=== PATIENT | male | born 1960 ===

== ENCOUNTER → 2020-10-12 08:18 | Outpatient (BNV) | payer OTHER, SELFPAY | PROVIDERS: PCP Internal Medicine; Visit Provider Internal Medicine Medical Oncology | DX: Z85.048 Personal history of other malignant neoplasm of rectum, rectosigmoid junction, and anus (principal) | CPT/HCPCS: 99212; 99213; 99214 ==

== ENCOUNTER → 2020-10-21 09:18 | Outpatient (BNVA) | payer OTHER, SELFPAY | PROVIDERS: PCP Internal Medicine; Visit Provider Surgery | DX: Z80.0 Family history of malignant neoplasm of digestive organs (principal) | CPT/HCPCS: 99212 ==

== ENCOUNTER 2020-11-20 07:49 | Day surgery (SDC) | payer OTHER, SELFPAY ==
[2020-11-13 11:06] VITALS: BMI 26.1
--- NOTE | 2020-11-19 08:47 | P.CONAN_ITS ---
Documented by User: Jaleesa Castro 11/19/20 09:00 HPI - Anesthesia Eval Consult details Narrative: 59yo M for Colonoscopy with Poss Polypectomy Reported ROYAL at last Onc visit. EKG wnl. 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 This has resolved over time. No SOB at rest, no CP, able to climb 2 flights of stairs and do physical work without symptoms now, no extremeity edema. Prev ROYAL likely r/t deconditioning s/p chemo/radiation. PMFSH Active Problems Active Problems: All Active Problems (Updated 11/13/20 @ 10:55 by Tiffanie Mccarthy) Anal squamous cell carcinoma (Acute) Family history of colon cancer (Acute) Past Medical History Medical History Family history of colon cancer Hypercholesteremia Family History Family History Mother Diabetes 1.5, managed as type 1 Father Colon cancer Surgical History Surgical History H/O colonoscopy History of incision and drainage Social History Social History Are you a primary career development director to a significant other at home: No Do you presently have visiting nurse or other home services: No Alcohol intake: current Alcohol intake frequency: holidays/special occasions only Smoking Status: Never smoker Use of substances other than those prescribed or required for medical reasons: No Have you been hit, kicked, punched, or otherwise hurt by someone within the past year? If so, by whom?: No Advance Directives: No Advance Directives Information Provided: No Advance Directives on File: No Recently lost weight without trying: No Meds Allergies Allergy/AdvReac Type Severity Reaction Status Date / Time Jrmphwh-Bea-Esx Reductase AdvReac Unknown LIVER TOXIC Verified 11/20/20 08:18 Inhibitor [RNDQCWU-HTE-XPY REDUCTASE INHIBITOR] statin meds Allergy Intermediate liver Uncoded 11/20/20 08:18 functions Home Medications Medication Instructions Recorded Confirmed Last Taken Type ezetimibe [Zetia] 10 mg PO DAILY 10/12/20 11/13/20 Unknown History Exam Exam Date and Time: November 19, 2020 0847 Height,Weight and Vital Signs: Height 5 ft 9 in Weight 80.286 kg Pertinent Lab Results Pertinent Lab Results: Laboratory Tests 10/12/20 10/12/20 08:20 08:20 WBC 4.2 L Hgb 14.9 Hct 44.6 Plt Count 193 Sodium 141 Potassium 4.1 Chloride 103 Carbon Dioxide 31 H BUN 17 H Creatinine 1.01 Narrative Narrative: EKG 10/2020 Normal sinus rhythm Normal ECG No previous ECGs available Assessment and Plan Assessment Anesthesia Assessment: Chart Reviewed Documented by User: Chantell Elder 11/20/20 08:55 PENDING SALE TO [facility] Past Medical History Medical History Family history of colon cancer Hypercholesteremia Family History Family History Mother Diabetes 1.5, managed as type 1 Father Colon cancer Family history of problems with anesthesia: No Surgical History Surgical History H/O colonoscopy History of incision and drainage History of Problems with Anesthesia: No Social History Social History Are you a primary career development director to a significant other at home: No Do you presently have visiting nurse or other home services: No Alcohol intake: current Alcohol intake frequency: holidays/special occasions only Smoking Status: Never smoker Use of substances other than those prescribed or required for medical reasons: No Have you been hit, kicked, punched, or otherwise hurt by someone within the past year? If so, by whom?: No Advance Directives: No Advance Directives Information Provided: No Advance Directives on File: No Recently lost weight without trying: No Meds Allergies Allergy/AdvReac Type Severity Reaction Status Date / Time Gczigue-Klv-Hok Reductase AdvReac Unknown LIVER TOXIC Verified 11/20/20 08:18 Inhibitor [WZTBLTK-TIM-BKD REDUCTASE INHIBITOR] statin meds Allergy Intermediate liver Uncoded 11/20/20 08:18 functions Home Medications Medication Instructions Recorded Confirmed Last Taken Type ezetimibe [Zetia] 10 mg PO DAILY 10/12/20 11/13/20 Unknown History Exam Height,Weight and Vital Signs: Vital Signs Temp Pulse Resp BP Pulse Ox 11/20/20 08:22 97.8 F 65 20 150/86 H 97 Airway Mallampati Class: II TM Dist: >3cm Neck ROM: Full Loose/Missing/Broken Teeth: No Heart: RRR Lungs: CTAB Assessment and Plan Assessment Anesthesia Assessment: Anesthesia Plan Discussed and Chart Reviewed Final Anesthetic Review NPO: Yes (3.5 hours- black coffee) ASA Class: II Final Preanesthetic Review: No Changes in Pt Med Stat, Meds/Allgs Chart Review ed, Consent Obtained/Reviewed and Anes Risks/Benef Reviewed Patient Risk: Low Procedure Risk: Low Assessment/Block/Sedation in SS: Assess/Block/Sedation-SS Anesthetic Plan Anesthetic Plan: MAC: Disposition: Standard PACU
[2020-11-20 08:22] VITALS: BP 150/86; PULSE 65; RESP 20; TEMP 36.6; O2SAT 97
[2020-11-20] MEDS: Lactated Ringers 1,000 ML 100 ML IVCONT (08:40)
--- NOTE | 2020-11-20 08:47 | MHC.SHP ---
Pre-Procedural Eval Section B Chief Complaint: Family history of colon cancer Allergies: Allergies Allergy/AdvReac Type Severity Reaction Status Date / Time Gksahrx-Hxd-Sau Reductase AdvReac Unknown LIVER TOXIC Verified 11/20/20 08:18 Inhibitor [JPYCRBD-PHU-AUX REDUCTASE INHIBITOR] statin meds Allergy Intermediate liver Uncoded 11/20/20 08:18 functions Plan I have reviewed the history and physical and performed a pertinent physical examination on my patient. No changes have occurred unless specified.
--- NOTE | 2020-11-20 09:27 | W.PM.OPN ---
Operative Note Operative Note Date of Service: 11/20/20 Narrative: PREOP DIAGNOSIS: COLON CANCER SCREENING, HISTORY OF ANAL SQUAMOUS CELL CARCINOMA POST OF DIAGNOSIS: 1. SIGMOID DIVERTICULOSIS 2. FLAT POLYP ABOUT 5 MM AT LEVEL 20 CM 3. NO EVIDENCE OF ANY RECURRENT LESION IN THE CANAL 4. SUBOPTIMAL BOWEL PREP SURGEON: ASH ANDRES MD The patient is a 59-year-old male who had a previous diagnosis of anal squamous cell carcinoma. He had undergone chemotherapy and radiation with resolution of the cancer. He was referred to me for screening colonoscopy. He understood the technique of the procedure. His ordered risks, benefits, and alternatives. He was brought to the operating room placed in left lateral decubitus position under monitored anesthesia care. A full digital rectal was done and there were no palpable anal canal lesions or induration. I proceeded to gently insert the scope through the anal orifice and advanced with insufflation all the way to the cecum. The cecum was intubated. The cecum was identified by visualization of the ileocecal valve as well as the appendiceal orifice. The cecal mucosa was unremarkable. The scope was gradually withdrawn with careful examination of the entire colonic mucosa being done with scope withdrawal. The patient did have segments of the right colon transverse colon with pools semi liquid/semi-solid stool so I had to do a lot of copious irrigation to clear the colonic mucosa. Otherwise, it was unlikely that any large lesion may have been missed. There was note of diverticulosis in the sigmoid. There was note of relatively flat polyp about 5 mm at the level about 20 cm. This was removed using multiple bites of the cold forceps. The rest of the rectum and anal canal were unremarkable. There is no evidence of any new or recurrent lesion in the anal canal. The scope was then withdrawn completely with desufflation. The patient tolerated the procedure well. There were no complications noted. In view of the suboptimal bowel prep, I would recommend repeating the colonoscopy within 5 years.
[2020-11-20 09:30] VITALS: BP 125/70; PULSE 58; RESP 12; TEMP 36.2; O2SAT 99
[2020-11-20 09:45] VITALS: BP 130/77; PULSE 60; RESP 18; O2SAT 99
== END 2020-11-20 10:15 | disposition home or self-care (01) ==
PROVIDERS: PCP Internal Medicine; Visit Provider Surgery
PROC: 0DJD8ZZ Inspection of Lower Intestinal Tract, Via Natural or Artificial Opening Endoscopic (ICD-10-PCS; CPT 45378; principal; 2020-11-20 09:00)
DX: Z12.11 Encounter for screening for malignant neoplasm of colon (principal); Z85.048 Personal history of other malignant neoplasm of rectum, rectosigmoid junction, and anus; Z92.21 Personal history of antineoplastic chemotherapy; Z92.3 Personal history of irradiation; Z80.0 Family history of malignant neoplasm of digestive organs; K63.5 Polyp of colon; K57.30 Diverticulosis of large intestine without perforation or abscess without bleeding; Z79.899 Other long term (current) drug therapy; Z88.8 Allergy status to other drugs, medicaments and biological substances
CPT/HCPCS: 45380; 88305

== ENCOUNTER → 2020-12-03 08:46 | Outpatient (BNVA) | payer OTHER, SELFPAY | PROVIDERS: PCP Internal Medicine; Visit Provider Surgery ==

== ENCOUNTER → 2021-12-20 10:43 | Outpatient (BNVA) | payer OTHER, SELFPAY | PROVIDERS: PCP Internal Medicine; Visit Provider Surgery | DX: Z85.048 Personal history of other malignant neoplasm of rectum, rectosigmoid junction, and anus (principal) | CPT/HCPCS: 46600; 99212 ==

== ENCOUNTER → 2022-12-26 11:40 | Outpatient (BNVA) | payer OTHER, SELFPAY | PROVIDERS: PCP Internal Medicine; Visit Provider Surgery | DX: Z85.048 Personal history of other malignant neoplasm of rectum, rectosigmoid junction, and anus (principal) | CPT/HCPCS: 46600; 99212 ==

== ENCOUNTER 2023-06-28 10:14 | Outpatient (AMB) | payer OTHER, SELFPAY ==
--- NOTE | 2023-06-28 10:18 | A.OFFVIS_ITS ---
Intake Intake Visit Reasons: 6 months follow up, anoscopy screening Intake Note: This patient presents for a six month follow-up assessment for Squamous cell carcinoma of the anus, anoscopy screening. Patient reports no complaints at this time. [place] Sewer Required: No Accompanied by: Self / Same As Patient Allergies Zihttvl-RXB-BjH Reductase Inhibitor [YZLLAIQ-NIA-BOL REDUCTASE INHIBITOR] Adverse Reaction (Unknown, Verified 06/28/23 10:19) LIVER TOXIC statin meds Allergy (Intermediate, Uncoded 06/28/23 10:19) liver functions Medication List - Last Reconciled 06/28/23 by Lavelle Cabezas MD ezetimibe (Zetia) 10 mg PO DAILY HPI 6 months follow up, anoscopy screening HPI Details 62-year-old male here for follow-up for his history of squamous cell carcinoma of the anus last 2017. I have been seeing in the office for anoscopies. I had seen him last in November,. He states he feels great. He denies any problems with bowel movements. He denies any pain with passage of stool nor any blood. He says that he does not feel that he has had any changes with regards to his health. [facility] Medical History (Updated 06/28/23 @ 10:37 by Lavelle Cabezas MD) Anal lesion Nasal trauma History of anal cancer Hyperplastic polyp of descending colon Family history of colon cancer Hypercholesteremia Surgical History History of nasal surgery H/O colonoscopy History of incision and drainage Family History Mother Diabetes 1.5, managed as type 1 Father Colon cancer Social History Are you a primary interior plant caretaker to a significant other at home: No Do you presently have visiting nurse or other home services: No Alcohol intake: current Alcohol intake frequency: holidays/special occasions only Patient Tobacco Use Status: Never used Tobacco Current occupational status: employed Review of Systems Const Denies chills and Denies fever(s) Card Denies chest pain, Denies dyspnea and Denies dyspnea on exertion Resp Denies cough, Denies dyspnea and Denies dyspnea on exertion GI Denies hematochezia and Denies change in bowel habits Denies hematuria and Denies difficulty urinating Musc Denies back pain and Denies limited range of motion Neuro Denies focal weakness and Denies convulsions Psych Denies depression and Denies mood swings Physical Exam Const General: comfortable and no acute distress Orientation/consciousness: patient oriented x3 Neck Neck: Yes no lymphadenopathy Resp Auscultation: clear to auscultation bilaterally Cardio Rhythm: regular rhythm GI Other: Rectal exam shows a small for 4 mm smooth fleshy well-defined mass and the anal verge on the left Palpation (GI): Soft to palpation, nontender and no guarding Neuro General: patient oriented x3 Office Procedures Anoscopy He was in brian-knife position. The anoscope was gently inserted. A full examination of the anal canal was done. There were no ulceration or any mucosal changes within the anal canal itself. There was no induration On the anal verge , left side, close to the distal anal canal was note of a 3-4 mm mass, soft, fleshy, well-defined not ulcerated, not bleeding [id number] Assessment & Plan Assessment & Plan (1) Anal lesion: Code(s): K62.9 - Disease of anus and rectum, unspecified Plan: He has a history of squamous cell anal carcinoma 2018 and had completed radiation and chemotherapy Anoscopy exam today shows a small define fleshy mass as described above on the left side of the anal verge. In view of his history, I told him it may be best to proceed with excision and biopsy of this lesion. I discussed with him the technique of exam under anesthesia and excision this anal lesion. I reviewed the risks, including but not limited to bleeding and infections, as well as the benefits and alternatives. He understands and wants to proceed. Coding Level of Care Code Est Pt Level 3 (92329) Diagnoses Anal lesion K62.9 CPT Codes Details - CPT: 99746-[id number] ([id number])
== END 2023-06-28 10:34 | disposition home or self-care (01) ==
PROVIDERS: PCP Internal Medicine; Visit Provider Surgery
DX: K62.9 Disease of anus and rectum, unspecified (principal)
CPT/HCPCS: 46600; 99213

== ENCOUNTER → 2023-06-28 10:14 | Outpatient (BNVA) | payer OTHER, SELFPAY | PROVIDERS: PCP Internal Medicine; Visit Provider Surgery | DX: K62.9 Disease of anus and rectum, unspecified (principal) | CPT/HCPCS: 46600; 99212 ==

== ENCOUNTER 2023-07-14 08:17 | Day surgery (SDC) | payer OTHER, SELFPAY ==
[2023-07-12 15:07] VITALS: BMI 27.8
--- NOTE | 2023-07-13 09:20 | P.CONAN_ITS ---
Documented by User: Jaleesa Castro NP 07/13/23 09:21 HPI - Anesthesia Eval Consult details Narrative: 62yo M for EUA,Excision Anal Lesion PMFSH Active Problems Active Problems: All Active Problems (Updated 06/28/23 @ 10:37 by Lavelle Cabezas MD) Anal lesion (Acute) Squamous cell carcinoma of anus (Acute) Anal squamous cell carcinoma (Acute) History of anal cancer (Acute) Hyperplastic polyp of descending colon (Acute) H/O colonoscopy (Acute) Family history of colon cancer (Acute) Past Medical History Medical History (Updated 06/28/23 @ 10:37 by Lavelle Cabezas MD) Anal lesion Nasal trauma History of anal cancer Hyperplastic polyp of descending colon Family history of colon cancer Hypercholesteremia Family History Family History Mother Diabetes 1.5, managed as type 1 Father Colon cancer Family history of problems with anesthesia: No Surgical History Surgical History History of nasal surgery H/O colonoscopy History of incision and drainage History of Problems with Anesthesia: No Social History Social History Are you a primary career advisor to a significant other at home: No Do you presently have visiting nurse or other home services: No Alcohol intake: current Alcohol intake frequency: holidays/special occasions only Patient Tobacco Use Status: Never used Tobacco Current occupational status: employed Meds Allergies Allergy/AdvReac Type Severity Reaction Status Date / Time Okmahqf-KUI-ZiE Reductase AdvReac Unknown LIVER TOXIC Verified 06/28/23 10:19 Inhibitor [VIOOEFE-RTD-YVF REDUCTASE INHIBITOR] statin meds Allergy Intermediate liver Uncoded 06/28/23 10:19 functions Home Medications Medication Instructions Recorded Confirmed Last Taken Type ezetimibe 10 mg tablet (Zetia) 10 mg PO DAILY 10/12/20 06/28/23 Unknown History Exam Exam Date and Time: July 13, 2023 09 Height,Weight and Vital Signs: Height 5 ft 10 in Weight 87.997 kg Pertinent Lab Results Pertinent Lab Results: Laboratory Tests 12/29/22 10:00 WBC 3.9 L Hgb 14.4 Hct 41.4 L Plt Count 171 Sodium 140 Potassium 4.1 Chloride 106 Carbon Dioxide 26 BUN 17 H Creatinine 0.86 Assessment and Plan Assessment Anesthesia Assessment: Chart Reviewed Final Anesthetic Review Family History of Problems with Anesthesia: No History of Problems with Anesthesia: No Documented by User: Sebas Henry MD 07/14/23 07:51 [facility] Past Medical History Medical History (Updated 06/28/23 @ 10:37 by Lavelle Cabezas MD) Anal lesion Nasal trauma History of anal cancer Hyperplastic polyp of descending colon Family history of colon cancer Hypercholesteremia Family History Family History Mother Diabetes 1.5, managed as type 1 Father Colon cancer Surgical History Surgical History History of nasal surgery H/O colonoscopy History of incision and drainage Social History Social History Are you a primary career advisor to a significant other at home: No Do you presently have visiting nurse or other home services: No Alcohol intake: current Alcohol intake frequency: holidays/special occasions only Patient Tobacco Use Status: Never used Tobacco Current occupational status: employed Meds Allergies Allergy/AdvReac Type Severity Reaction Status Date / Time Vllyeur-EJR-WnP Reductase AdvReac Unknown LIVER TOXIC Verified 06/28/23 10:19 Inhibitor [IYLWPGJ-AFW-UWH REDUCTASE INHIBITOR] statin meds Allergy Intermediate liver Uncoded 06/28/23 10:19 functions Home Medications Medication Instructions Recorded Confirmed Last Taken Type ezetimibe 10 mg tablet (Zetia) 10 mg PO DAILY 10/12/20 06/28/23 Unknown History Exam Airway Mallampati Class: II TM Dist: >3cm Neck ROM: Full Heart: rrr Lungs: cta Assessment and Plan Assessment Anesthesia Assessment: Anesthesia Plan Discussed Final Anesthetic Review NPO: Yes ASA Class: II Final Preanesthetic Review: No Changes in Pt Med Stat, Meds/Allgs Chart Reviewed, Consent Obtained/Reviewed and Anes Risks/Benef Reviewed Patient Risk: Intermediate Procedure Risk: Low Anesthetic Plan Anesthetic Plan: GA and Agree w/ Assess. and Plan Disposition: Standard PACU
[2023-07-14 08:26] VITALS: BMI 27.3
[2023-07-14 08:34] VITALS: BP 161/82; PULSE 70; RESP 16; TEMP 37; O2SAT 98
[2023-07-14] MEDS: Lactated Ringers 1,000 ML 100 ML IVCONT (08:40)
--- NOTE | 2023-07-14 09:30 | MHC.SHP ---
Pre-Procedural Eval Section A Date of Service: 07/14/23 The patient is an INPATIENT: No Changes since office visit: No Cold of Flu in the past 2 weeks, No New Medical Problems, No Changes in Medication and No Patient answered all questions The History & Physical has been completed within 30 days and I have reviewed it.: Yes Section B Chief Complaint: Disease of anus and rectum, unspecified Allergies: Allergies Allergy/AdvReac Type Severity Reaction Status Date / Time Eqxzezi-EHP-CbB Reductase AdvReac Unknown LIVER TOXIC Verified 07/14/23 08:33 Inhibitor [ROEZVSB-UUR-KER REDUCTASE INHIBITOR] statin meds Allergy Intermediate liver Uncoded 07/14/23 08:33 functions Plan I have reviewed the history and physical and performed a pertinent physical examination on my patient. No changes have occurred unless specified. Time Spent With Patient Time: Total time managing care of this patient today ____ minutes.
--- NOTE | 2023-07-14 10:07 | W.PM.OPN ---
Operative Note Operative Note Date of Service: 07/14/23 Narrative: Preop diagnosis: Anal canal lesion, with history of squamous cell carcinoma of the anus Postop diagnosis: The same Procedure: Exam under anesthesia, excision of anal canal lesion Surgeon: Lavelle Cabezas MD The patient is a 62-year-old male with a history of squamous cell carcinoma of the anus, status post chemotherapy and radiation with good response He has been undergoing surveillance with me in the office with anoscopy is and rectal exams. There was note of a small well-defined anal lesion, elevated, smooth, near the anal verge on his last exam so is scheduled for exam under anesthesia and excision biopsy of this lesion. He understood the technique of the planned procedure as well as the risks, benefits, and alternatives . He was brought to the operating room. He was placed in left colic was position under monitored anesthesia care. The right buttock was retracted using wide tape. The perianal area was prepped and draped in the usual sterile fashion. A surgical time-out was done. The patient received Cefotan 2 g IV preoperatively . I retracted the anal opening some more and this well-defined anal lesion probably about 5 mm in widest dimension with a narrow base, with smooth surface was noted on the anterior anal canal distally near the anal verge. I inserted the Juany Walters retractor and examined anal canal circumferentially. There were no other lesions . I retracted this lesion which appeared to be small and polypoid, with forceps. I excise this using electrocautery and this was sent as specimen. Excision site appeared clean. There was noted good hemostasis I then infiltrated the perianal area with Marcaine 0.5% for postop analgesia. The procedure was then completed. The patient tolerated procedure well. There were no immediate complications. Initial and final counts of sponges and instruments were correct. Estimated blood loss was about 5 cc. The patient was extubated without difficulty and transferred to the recovery room with stable vital signs.
[2023-07-14 10:17] VITALS: BP 106/52; PULSE 66; RESP 20; TEMP 36.3; O2SAT 96
[2023-07-14 10:32] VITALS: BP 109/70; PULSE 62; RESP 17; O2SAT 97
[2023-07-14 10:47] VITALS: BP 112/69; PULSE 63; RESP 14; TEMP 36.6; O2SAT 99
== END 2023-07-14 11:01 | disposition home or self-care (01) ==
PROVIDERS: PCP Internal Medicine; Visit Provider Surgery
PROC: (CPT 46922; principal; 2023-07-14 10:20)
DX: K62.9 Disease of anus and rectum, unspecified (principal); Z85.048 Personal history of other malignant neoplasm of rectum, rectosigmoid junction, and anus; Z92.21 Personal history of antineoplastic chemotherapy; Z92.3 Personal history of irradiation; Z80.0 Family history of malignant neoplasm of digestive organs; E78.00 Pure hypercholesterolemia, unspecified; Z79.899 Other long term (current) drug therapy; Z88.8 Allergy status to other drugs, medicaments and biological substances
CPT/HCPCS: 46922; 88305

== ENCOUNTER → 2023-07-14 08:17 | Outpatient (BNV) | payer OTHER, SELFPAY | PROVIDERS: PCP Internal Medicine; Visit Provider Surgery | DX: K62.89 Other specified diseases of anus and rectum (principal) | CPT/HCPCS: 46922 ==

== ENCOUNTER 2023-07-27 11:11 | Outpatient (AMB) | payer OTHER, SELFPAY ==
--- NOTE | 2023-07-27 11:13 | MHC.OFFVIS ---
Intake Vital Signs 07/27/23 11:21 Weight 192 lb BP 165/74 H Blood Pressure Location Rt brachial Position Sitting Pulse 59 Intake Visit Reasons: S/P EUA anal lesion Intake Note: This patient presents for a post-op assessment status post EUA anal lesion. Patient c/o; reports no complaints at this time pertaining to surgery. Community Engagement Coordinator Required: No Accompanied by: Other Relationship Allergies Gnfgrmv-VWV-NpE Reductase Inhibitor [XDHLGXU-KMK-CZY REDUCTASE INHIBITOR] Adverse Reaction (Unknown, Verified 07/27/23 11:22) LIVER TOXIC statin meds Allergy (Intermediate, Uncoded 07/27/23 11:22) liver functions HPI S/P EUA anal lesion HPI Details He had lesion from the anal verge excised under anesthesia last 07/14/2023. He tolerated the procedure well. He currently denies significant complaints and says he feels well. [facility] Medical History HTN (hypertension) Anal lesion Nasal trauma History of anal cancer Hyperplastic polyp of descending colon Family history of colon cancer Hypercholesteremia Surgical History Hx of surgical procedure (~07/14/23) History of nasal surgery H/O colonoscopy History of incision and drainage Family History Mother Diabetes 1.5, managed as type 1 Father Colon cancer Social History Are you a primary director of health care marketing to a significant other at home: No Do you presently have visiting nurse or other home services: No Alcohol intake: current Alcohol intake frequency: 0-2 drinks per day Patient Tobacco Use Status: Never used Tobacco Current occupational status: employed Review of Systems Const Denies chills and Denies fever(s) Card Denies chest pain Resp Denies cough GI Denies hematochezia Physical Exam Vital Signs: Last Vital Signs Pulse 59 07/27/23 11:21 BP 165/74 H 07/27/23 11:21 Const General: comfortable and no acute distress Resp Effort & Inspection: normal respiratory effort GI Other: Excision site in the anal verge is well healed, not infected, no lesions Assessment & Plan Assessment & Plan (1) Anal lesion: Code(s): K62.9 - Disease of anus and rectum, unspecified Plan: Status post excision. 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 I explained to him the benign nature of this pathology. We will continue to do regular anoscopy is and we will do this within 1 year this time. He understands the plan well. Coding Level of Care Code Global (11496) Diagnoses Anal lesion K62.9
[2023-07-27 11:21] VITALS: BP 165/74; PULSE 59
== END 2023-07-27 11:31 | disposition home or self-care (01) ==
PROVIDERS: PCP Internal Medicine; Visit Provider Surgery
DX: K62.9 Disease of anus and rectum, unspecified (principal)
CPT/HCPCS: 99024

== ENCOUNTER → 2023-07-27 11:11 | Outpatient (BNVA) | payer OTHER, SELFPAY | PROVIDERS: PCP Internal Medicine; Visit Provider Surgery ==

== ENCOUNTER 2024-07-22 08:57 | Outpatient (AMB) | payer OTHER, SELFPAY ==
--- NOTE | 2024-07-22 09:02 | A.OFFVIS_ITS ---
Vital Signs 07/22/24 09:06 Weight 186 lb BP 136/76 Intake Visit Reasons: Anal lesion, 1 year follow up Intake Note: pt states, I'm good. No problems. 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 I have been seeing him in the office for anoscopies. I excised a small lesion from the anal verge last July, and this was a fibroepithelial polyp. He continues to feel well.He denies any problems with bowel movements. He denies any pain with passage of stool nor any blood. He says that he does not feel that he has had any changes with regards to his health. [facility] Medical History HTN (hypertension) Anal lesion Nasal trauma History of anal cancer Hyperplastic polyp of descending colon Family history of colon cancer Hypercholesteremia Surgical History Hx of surgical procedure (~07/14/23) History of nasal surgery H/O colonoscopy History of incision and drainage Family History Mother Diabetes 1.5, managed as type 1 Father Colon cancer Social History Are you a primary healthcare prof to a significant other at home: No Do you presently have visiting nurse or other home services: No Alcohol intake: current Alcohol intake frequency: 0-2 drinks per day Patient Tobacco Use Status: Never used Tobacco Current occupational status: employed Review of Systems Const Denies chills and Denies fever(s) Card Denies chest pain, Denies dyspnea and Denies dyspnea on exertion Resp Denies cough, Denies dyspnea and Denies dyspnea on exertion GI Denies hematochezia and Denies change in bowel habits Denies hematuria and Denies difficulty urinating Musc Denies back pain and Denies limited range of motion Neuro Denies focal weakness and Denies convulsions Psych Denies depression and Denies mood swings Physical Exam Const General: comfortable and no acute distress Orientation/consciousness: patient oriented x3 Neck Neck: Yes no lymphadenopathy Resp Auscultation: clear to auscultation bilaterally Cardio Rhythm: regular rhythm GI Other: Rectal exam does not reveal any new lesions in the anal verge or perianal area. He does have adjacent changes in the perianal skin. Note of scabbing in the left anal verge. He has no inguinal lymphadenopathy Palpation (GI): Soft to palpation, nontender and no guarding Neuro General: patient oriented x3 Office Procedures Anoscopy He was in brian-knife position. The anoscope was gently inserted. A full examination of the anal canal was done. There was note of radiation changes in the perianal skin and eschar on the left side. There were no new lesions or ulceration. There was no induration on digital exam. There was no significant tenderness. There was no bleeding. [id number] Assessment & Plan Assessment & Plan (1) History of anal cancer: Code(s): Z85.048 - Personal history of other malignant neoplasm of rectum, rectosigmoid junction, and anus Category: Medical Plan: He continues to do well. Current exam and anoscopy does not suggest any recurrence or any new lesion. I explained to him that I would recommend continuing with a yearly anoscopy is here in the office. He understands that if he has any complaints with regards to the anus, he should come back prior to that. Coding Level of Care Code Est Pt Level 3 (72629) Diagnoses History of anal cancer Z85.048 CPT Codes Details - CPT: 76561-Fqwyjfpn ([id number])
[2024-07-22 09:06] VITALS: BP 136/76
== END 2024-07-22 09:16 | disposition home or self-care (01) ==
PROVIDERS: PCP Internal Medicine; Visit Provider Surgery
DX: Z85.048 Personal history of other malignant neoplasm of rectum, rectosigmoid junction, and anus (principal)
CPT/HCPCS: 46600; 99213

== ENCOUNTER → 2024-07-22 08:57 | Outpatient (BNVA) | payer OTHER, SELFPAY | PROVIDERS: PCP Internal Medicine; Visit Provider Surgery | DX: Z85.048 Personal history of other malignant neoplasm of rectum, rectosigmoid junction, and anus (principal) | CPT/HCPCS: 46600; 99212 ==

== ENCOUNTER 2025-02-06 11:01 | Outpatient (AMB) | payer OTHER, SELFPAY ==
--- NOTE | 2025-02-06 11:03 | A.OFFVIS_ITS ---
Vital Signs 02/06/25 11:09 Height 5 ft 9 in Weight 191 lb BMI 28.2 BP 180/82 H Blood Pressure Location Rt brachial Position Sitting Pulse 71 Intake Visit Reasons: new onset rectal bleeding Intake Note: Patient scheduled today's appointment for new onset of rectal bleeding. Hx of anal squamous cell carcinoma. Patient c/o: one incident 1wk ago. Bleeding for about 1hour. 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 This had that he saw this and seemed to have soaked the toilet paper. He said that he noticed this for about an hour. He denied any pain around that time. He said that this has not recurred.. I excised a small lesion from the anal verge last July, and this was a fibroepithelial polyp. He continues to feel well.He denies any problems with bowel movements. He denies any changes with his overall health. [facility] Medical History (Updated 02/06/25 @ 11:20 by Lavelle Cabezas MD) Anal polyp HTN (hypertension) Anal lesion Nasal trauma History of anal cancer Hyperplastic polyp of descending colon Family history of colon cancer Hypercholesteremia Surgical History Hx of surgical procedure (~07/14/23) History of nasal surgery H/O colonoscopy History of incision and drainage Family History Mother Diabetes 1.5, managed as type 1 Father Colon cancer Social History Are you a primary career center advisor to a significant other at home: No Do you presently have visiting nurse or other home services: No Alcohol intake: current Alcohol intake frequency: 0-2 drinks per day Patient Tobacco Use Status: Never used Tobacco Current occupational status: employed Review of Systems Const Denies chills and Denies fever(s) Card Denies chest pain, Denies dyspnea and Denies dyspnea on exertion Resp Denies cough, Denies dyspnea and Denies dyspnea on exertion GI Reports hematochezia and Denies change in bowel habits Denies hematuria and Denies difficulty urinating Musc Denies back pain and Denies limited range of motion Neuro Denies focal weakness and Denies convulsions Psych Denies depression and Denies mood swings Physical Exam Const General: comfortable and no acute distress Orientation/consciousness: patient oriented x3 Neck Neck: Yes no lymphadenopathy Resp Auscultation: clear to auscultation bilaterally Cardio Rhythm: regular rhythm GI Other: Rectal exam shows chronic radiation changes in the perianal skin without any obvious lesions, no fissure Palpation (GI): Soft to palpation, nontender and no guarding Neuro General: patient oriented x3 Office Procedures Anoscopy He was in kneeling brian-knife position. The anoscope was gently inserted and a full examination of the anal canal was done. There was note of telangiectatic changes anal canal diffusely secondary to his previous radiation. There were no ulcerations or lesions. He did have some small internal external hemorrhoids. There was note of what appeared to be a small polypoid area anteriorly measuring about 5 mm. This was on the distal anal canal at the verge. [id number] Assessment & Plan Assessment & Plan (1) Anal polyp: Code(s): K62.0 - Anal polyp Category: Medical Plan: He has a small polypoid lesion in the anal canal at the verge. In view of history of squamous cell anal cancer, I told him that it may be best to have this pathologically examined. I explained to the technique of exam under anesthesia and excision of this anal polyp. I reviewed the risks including but not limited to bleeding, infections and postop pain and poor healing. He understands and has agreed to proceed. Coding Level of Care Code Est Pt Level 3 (58905) Diagnoses Anal polyp K62.0 CPT Codes Details - CPT: 77673-[id number] ([id number])
[2025-02-06 11:09] VITALS: BP 180/82; PULSE 71; BMI 28.2
--- OUTSIDE RECORDS SUMMARY | 2025-02-06 12:33 | XMS_ITS | Encounter Summary ---
Author Name [facility] [facility] [place] Address [address] [place] [address] Care Team Providers Care Maintenance Worker House Trailer Name Role Phone IVETH CHILDS Primary Care Provider Unavailabl e Insurance Providers: All historical and current Section Date Range: From patient's date of to the date document was created. This section includes the names of all active insurance providers for the patient. Insurance Provider Type of Coverage Plan Name Start of Policy Coverage End of Policy Coverage Group Number Member ID Insurance Provider's Telephone Number Policy Yarbrough's Name Patient's Relationship to Policy Yarbrough [facility] MEDICAID MEDICAID MEDIC AID Dec 05, 2017 MEDICAI D [id number] MONA RENEE PATIENT Selected Encounter This section includes the information on record at [place] for the Encounter. Date/Time Encounter Type Encounter Description Reason Pro vider Source February 05, 2025 11:15 AM Outpatient Encounter OPTOMETRY IHE Encounter Template Text not used by [facility] Plan of Treatment: Future Appointments (+ 6 months) and Future Tests (+/- 45 days) The Plan of Treatment section includes future care activities for the patient from all [facility] treatmentfacilities. This section includes future appointments and future orders which are active, pending or scheduled. Future Appointments This section includes appointments that were scheduled to occur 6 months from the date of the Encounter, up to a maximum of 20 appointments. The data comes from all [place] treatment facilities. Appointment Date/Time Appointment Type Appointme nt Facility Name February 06, 2025 11:30 AM [place] [facility] [place] [facility] Jul 29, 2025 09:00 AM [facility] Active, Pending, and Scheduled Orders This section includes a listing of several types of active, pending, and scheduled orders, including clinic medications orders, diagnostic test orders, procedure orders and consult orders; where the start date of the order is 45 days before the date of the Encounter or 45 days after the date of theEncounter. The data comes from all [place] treatment facilities. Test Date/Time Test Type Test Details Facility Name Jan 08, 2025 06:25 PM Consult Order [facility] Hand [facility] [place] [facility] Jan 27, 2025 09:33 AM Consult Order COMM[facility]ITY [facility] SURGERY [facility] Lab Results: +/- 30 days of the encounter This section includes the Chemistry and Hematology Lab Results on record with [place] for the patient. Radiology Reports and Pathology Reports are provided separately, in subsequent sections. Lab Results This section contains the Chemistry/Hematology Results that were resulted 30 days before or 30 daysafter the date of the Encounter. Date/Time Source Result Type Result - Unit Interpretation Reference Range Specimen Type Comment Jan 27, 2025 08:43 [facility] TSH SERUM Specimen Type: SERUM No comment entered. Ordering Provider: IVETH CHILDS Report Released Date/Time: Jan 18, 2025 04:42 PM Reporting Lab: [facility] [place] [facility] [address] [facility] [address] Performing Lab: [facility] [address] [address] TSH 1.48 u[IU]/mL 0.35-4.94 Jan 27, 2025 08:43 [address] [facility] LIPID PANEL FASTING SERUM Specimen Type: SERU M No comment entered. Ordering Provider: IVETH CHILDS Report Released Date/Time: Jan 18, 2025 04:42 PM Reporting Lab: [facility] [address] [facility] [address] Performing Lab: [address] [address] CHOLESTEROL 255 mg/dL H TRIGLYCERIDE 211 mg/dL H 0-150 LDL calculated 163 mg/dL H 0-129 CHOL/HDL 5.1 HDL CHOLESTEROL 50 mg/dL >40 Jan 27, 2025 08:43 AM [facility] LIVER FUNCTION SERUM Specimen Type: SERUM No comment entered. Ordering Provider: IVETH CHILDS Report Released Date/Time: Jan 18, 2025 04:42 PM Reporting Lab: [address] [address] Performing Lab: [address] [address] PROTEIN,TOTAL 7.1 g/dL 6.4-8.3 ALBUMIN 4.7 g/dL H 3.2-4.6 ALKALINE PHOSPHATASE 65 U/L 40-150 AST 23 U/L 5-34 ALT 34 U/L 0-55 BILIRUBIN, TOTAL 0.8 mg/dL 0.2-1.2 Jan 27, 2025 08:43 AM [facility] BASIC METABOLIC PANEL (fasting) SERUM Specime n Type: SERUM No comment entered. Ordering Provider: IVETH CHILDS Report Released Date/Time: Jan 18, 2025 04:42 PM Reporting Lab: [address] [address] Performing Lab: [address] [address] UREA NITROGEN 19 mg/dL 8-26 GLUCOSE 108 mg/dL H 65-100 SODIUM 140 mmol/L 136-145 POTASSIUM 3.9 mmol/L 3.5-5.1 CHLORIDE 106 mmol/L 98-107 CO2 24 meq/L 23-31 CALCIUM 9.2 mg/dL 8.8-10 CREATININE, Serum 0.95 mg/dL 0.72-1.25 eGFR(CKD-EPI 2020) 89 mL/min >60 Jan 27, 2025 08:43 AM [facility] PSA SERUM Specimen Type: SERUM No comment entered. Ordering Provider: IVETH CHILDS Report Released Date/Time: Jan 18, 2025 04:42 PM Reporting Lab: [facility] [address] [facility] [address] Performing [facility]: [facility] [address] [facility] [address] PSA 1.8 ng/mL 0.0-4.0 Jan 27, 2025 08:43 AM [facility] CALCIUM SERUM Specimen Type: SERUM No comment entered. Ordering Provider: IVETH CHILDS Report Released Date/Time: Jan 18, 2025 04:42 PM Reporting Lab: [address] [address] Performing Lab: [facility] [address] [address] CALCIUM 9.2 mg/dL 8.8-10 Jan 27, 2025 08:43 AM [facility] VITAMIN D (25-[place]) SERUM Specimen Type: SERUM No comment entered. Ordering Provider: IVETH CHILDS Report Released Date/Time: Jan 18, 2025 04:42 PM Reporting Lab: [facility] [address] [address] Performing Lab: [address] [address] VITAMIN D (25-[place]) 51.8 ng/mL H 20-50 Jan 27, 2025 08:43 AM [facility] CBC AND DIFF (AUTO) BLOOD Specimen Type: BLOO D No comment entered. Ordering Provider: IVETH CHILDS Report Released Date/Time: Jan 18, 2025 04:42 PM Reporting Lab: [facility] [address] [address] Performing Lab: [facility] [address] [address] WBC 4.33 10*3/uL L 4.50-11.00 RBC 4.92 10*6/uL 4.23-5.66 HGB 15.2 g/dL 12.8-17 HCT 44.3 39.2-50.4 MCV 90.0 fL 82-99 MCHC 34.3 g/dL 30.8-35.1 PLT 183 10*3/uL 140-360 MPV 9.9 fL 9.2-12.4 RDW-CV 12.2 12.0-16.0 MONO, ABS 0.52 10*3/uL 0.30-1.10 MCH 30.9 pg 26.2-32.6 NEUT % 58.6 43.7-75.8 LYMPH % 23.8 14.0-42.3 MONO % 12.0 5.1-13.7 EOS % 4.6 0.4-6.8 BASO % 0.5 0.1-2.0 NEUT, ABS 2.54 10*3/uL 2.20-7.60 LYMPH, ABS 1.03 10*3/uL 1.00-3.20 EOS, ABS 0.20 10*3/uL 0.03-0.44 BASO, ABS 0.02 10*3/uL 0.01-0.13 IMMATURE GRAN % 0.5 0.0-0.7 IMMATURE GRAN, ABS 0.02 10*3/uL 0.00-0.0 6 NRBC % 0.0 0.0-0.0 NRBC, ABS 0.00 10*3/uL 0.00-0.00 Jan 27, 2025 08:43 AM [facility] URINALYSIS CLEAN CATCH URINE Specimen Type: U RINE Comment: If Glucose = >500 and Ketones are positive, please alert the Physician. Ordering Provider: IVETH CHILDS Report Released Date/Time: Jan 18, 2025 04:42 PM Reporting Lab: [address] [address] Performing Lab: [address] [address] UA COLOR Light-Yellow Yellow UA APPEARANCE Clear Clear UA GLUCOSE Normal mg/dL Negative UA KETONES NEGATIVE mg/dL Negative UA BLOOD NEGATIVE mg/dL Negative UA PROTEIN NEGATIVE mg/dL Negative UA NITRITE NEGATIVE mg/dL Negative UA BILIRUBIN NEGATIVE mg/dL Negative UA SPECIFIC GRAVITY 1.025 H 1.016-1.022 UA pH 6.0 5.0-9.0 UA UROBILINOGEN Normal mg/dL <2.0 UA LEUKOCYTE NEGATIVE Negative Social History: Smoking Status (Most current) and Tobacco Use (All prior to encounter date) This section includes the most current, and the historical, smoking and tobacco- related health factors from the [place] facility where the Encounter took place. Current Smoking Status This section includes the most current smoking, or tobacco-related health factor, from the [place] facility where the Encounter took place. Date/Time Current Smoking Status Comment [facility] it Aug 02, 2024 11:00 AM VA-TOBACCO NEVER USED [place] [facility] [place] [facility] Tobacco Use History This section includes a history of the smoking, or tobacco-related health factors, that were collected on or before the date of the Encounter. The data comes from the [place] facility where the Encounter took place. Date/Time Smoking Status/Tobac co Use Comment [facility] May 01, 2023 11:30 AM VA-TOBACCO FORMER USER [facility] [place] [facility] May 01, 2023 11:30 AM VA-TOBACCO QUIT 15 YRS OR MORE [facility] [place] [facility] May 13, 2022 08:30 AM VA-TOBACCO FORMER USER [facility] [place] [facility] May 13, 2022 08:30 AM VA-TOBACCO QUIT 15 YRS OR MORE [facility] [place] [facility] May 24, 2021 03:30 PM VA-TOBACCO NEVER USED [facility] [place] [facility] Jun 23, 2020 09:30 AM VA-TOBACCO FORMER USER [facility] [place] [facility] Jun 23, 2020 09:30 AM VA-TOBACCO QUIT 15 YRS OR MORE [facility] [place] [facility] Sep 18, 2018 09:48 AM VA-TOBACCO NEVER USED [facility] [place] [facility] Mar 26, 2018 10:01 AM LIFETIME NON-TOBACCO USER [facility] [place] [facility] Jun 17, 2016 09:41 AM LIFETIME NON-TOBACCO USER [facility] [place] [facility] Mar 03, 2011 11:19 AM QUIT TOBACCO USE > 7 YEARS AGO quit 20 years ago [facility] [place] [facility] Encounter Notes: All associated encounter notes This section contains the clinical notes associated to the Encounter. Date/Time Encounter Note(s) Provider Source February 05, 2025 11:15 AM OPTOMETRY NOTE: LOCAL TITLE: OPTOMETRY NOTE STANDARD TITLE: OPTOMETRY NOTE DATE OF NOTE: FEBRUARY 05, 2025@11:15 ENTRY DATE: FEBRUARY 05, 2025@11:15:17 AUTHOR: LUBNA RUGGIERO COSIGNER: URGENCY: STATUS: COMPLETED seen for fitting. Repaired one pair. Replaced missing nosepads. The quote provided below is for informational purposes only. Please verify prior to the creation of a purchase order. HARRIETT RENEE 2178 RX INFORMATION OD +1.50 -0.75 X89 Add:+2.50 Pzm:0.00 Dir: Prz2:0.00 Dir2: OS +2.00 -0.50 X65 Add:+2.50 Pzm:0.00 Dir: Prz2:0.00 Dir2: FITTING INFORMATION FPD: NPD: [place]:R:32.5 L:33.5 SEG HT:R:20 L:20 Tint:None Shade:None VA Billable Items FRAME: FX3 COFFEE 50-20-145 Right Lens: POLY VA PROGRESSIVE PHOTOCHROMIC BALDERAS 1.586 POLY Left Lens: POLY VA PROGRESSIVE PHOTOCHROMIC BALDERAS 1.586 POLY KLEAR ANTI-REFLECTIVE COATING CLIN items [employer] - AR Coating 0004 - Progressive - Glass Plastic Poly 0005 - Transition /es/ LUBNA RUGGIERO ENVIRONMENTAL SYSTEMS COORDINATOR Signed: 02/05/2025 11:26 Receipt Acknowledged By: * AWAITING SIGNATURE * [facility] TAYLOR NICOLE [facility]
--- OUTSIDE RECORDS SUMMARY | 2025-02-06 12:33 | XMS_ITS | Encounter Summary ---
Author Name [facility] [place] [facility] [place] [facility] [place] Address [address] [place] [address] Care Team Providers Care [place] Ste[place] Name Role Phone SINGH ALVAREZ Primary Care Provider Unavailabl e Insurance Providers: All historical and current Section Date Range: From patient's date of to the date document was created. This section includes the names of all active insurance providers for the patient. Insurance Provider Type of Coverage Plan Name Start of Policy Coverage End of Policy Coverage Group Number Member ID Insurance Provider's Telephone Number Policy Yarbroguh's Name Patient's Relationship to Policy Yarbrough [facility] MEDICAID MEDICAID MEDIC AID Dec 05, 2017 MEDICAI D [id number] MONA RENEE PATIENT Selected Encounter This section includes the information on record at [place] for the Encounter. 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 Date/Time Primary/Secondary Diagnosis Diagnosis Name Provider Source Jan 27, 2025 09:38 AM PRIMARY Malignant neoplasm of anus, unspecified SINGH ALVAREZ [facility] Plan of Treatment: Future Appointments (+ 6 months) and Future Tests (+/- 45 days) The Plan of Treatment section includes future care activities for the patient from all [place] treatmentfacilities. This section includes future appointments and future orders which are active, pending or scheduled. Future Appointments This section includes appointments that were scheduled to occur 6 months from the date of the Encounter, up to a maximum of 20 appointments. The data comes from all [place] treatment facilities. Appointment Date/Time Appointment Type Appointme nt Facility Name February 03, 2025 11:40 AM AMBULATORY - MEDICINE [facility] February 05, 2025 10:30 AM AMBULATORY MEDICINE [facility] February 06, 2025 11:30 AM AMBULATORY MEDICINE [facility] Jul 29, 2025 09:00 AM AMBULATORY MEDICINE [facility] Active, Pending, and Scheduled Orders This section includes a listing of several types of active, pending, and scheduled orders, including clinic medications orders, diagnostic test orders, procedure orders and consult orders; where the start date of the order is 45 days before the date of the Encounter or 45 days after the date of theEncounter. The data comes from all [place] treatment facilities. Test Date/Time Test Type Test Details Facility Name Jan 08, 2025 06:25 PM Consult Order COMMUNITY CARE-ONCOLOGY Cons Analysis Lead's Choice [facility] Jan 27, 2025 09:33 AM Consult Order COMMUNITY CARE-GEN SURGERY [facility] Analysis Lead's [facility] Lab Results: +/- 30 days of the encounter This section includes the Chemistry and Hematology Lab Results on record with [place] for the patient. Radiology Reports and Pathology Reports are provided separately, in subsequent sections. Lab Results This section contains the Chemistry/Hematology Results that were resulted 30 days before or 30 daysafter the date of the Encounter. Date/Time Source Result Type Result - Unit Interpretation Reference Range Specimen Type Comment Jan 27, 2025 08:43 AM [facility] TSH SERUM Specimen Type: SERUM No comment entered. Ordering Provider: SINGH ALVAREZ Report Released Date/Time: Jan 18, 2025 04:42 PM Reporting Lab: [facility] [place] [facility] [address] [facility] [address] Performing Lab: [facility] [place] [facility] [address] [facility] [address] TSH 1.48 u[IU]/mL 0.35-4.94 Jan 27, 2025 08:43 AM [facility] [place] [facility] LIVER FUNCTION SERUM Specimen Type: SERUM No comment entered. Ordering Provider: SINGH ALVAREZ Report Released Date/Time: Jan 18, 2025 04:42 PM Reporting Lab: [facility] [place] [facility] [address] [facility] [address] Performing Lab: [facility] [place] [address] [address] PROTEIN,TOTAL 7.1 g/dL 6.4-8.3 ALBUMIN 4.7 g/dL H 3.2-4.6 ALKALINE PHOSPHATASE 65 U/L 40-150 AST 23 U/L 5-34 ALT 34 U/L 0-55 BILIRUBIN, TOTAL 0.8 mg/dL 0.2-1.2 Jan 27, 2025 08:43 AM [facility] [place] [facility] LIPID PANEL FASTING SERUM Specimen Type: SERU M No comment entered. Ordering Provider: SINGH ALVAREZ Report Released Date/Time: Jan 18, 2025 04:42 PM Reporting Lab: [facility] [place] [address] [address] Performing Lab: [facility] [place] [address] [address] CHOLESTEROL 255 mg/dL H TRIGLYCERIDE 211 mg/dL H 0-150 LDL calculated 163 mg/dL H 0-129 CHOL/HDL 5.1 HDL CHOLESTEROL 50 mg/dL >40 Jan 27, 2025 08:43 AM [facility] PSA SERUM Specimen Type: SERUM No comment entered. Ordering Provider: SINGH ALVAREZ Report Released Date/Time: Jan 18, 2025 04:42 PM Reporting Lab: [facility] [place] [address] [address] Performing Lab: [facility] [address] [facility] [address] PSA 1.8 ng/mL 0.0-4.0 Jan 27, 2025 08:43 AM [facility] BASIC METABOLIC PANEL (fasting) SERUM Specime n Type: SERUM No comment entered. Ordering Provider: SINGH ALVAREZ Report Released Date/Time: Jan 18, 2025 04:42 PM Reporting Lab: [facility] [address] [facility] [address] Performing Lab: [facility] [address] [facility] [address] UREA NITROGEN 19 mg/dL 8-26 GLUCOSE 108 mg/dL H 65-100 SODIUM 140 mmol/L 136-145 POTASSIUM 3.9 mmol/L 3.5-5.1 CHLORIDE 106 mmol/L 98-107 CO2 24 meq/L 23-31 CALCIUM 9.2 mg/dL 8.8-10 CREATININE, Serum 0.95 mg/dL 0.72-1.25 eGFR(CKD-EPI 2020) 89 mL/min >60 Jan 27, 2025 08:43 AM [facility] CALCIUM SERUM Specimen Type: SERUM No comment entered. Ordering Provider: SINGH ALVAREZ Report Released Date/Time: Jan 18, 2025 04:42 PM Reporting Lab: [facility] [address] [facility] [address] Performing Lab: [address] [address] CALCIUM 9.2 mg/dL 8.8-10 Jan 27, 2025 08:43 AM [facility] VITAMIN D (25-OH) SERUM Specimen Type: SERUM No comment entered. Ordering Provider: SINGH ALVAREZ Report Released Date/Time: Jan 18, 2025 04:42 PM Reporting Lab: [facility] [address] [facility] [address] Performing Lab: [address] [address] VITAMIN D (25-OH) 51.8 ng/mL H 20-50 Jan 27, 2025 08:43 AM [facility] CBC AND DIFF (AUTO) BLOOD Specimen Type: BLOO D No comment entered. Ordering Provider: SINGH ALVAREZ Report Released Date/Time: Jan 18, 2025 04:42 PM Reporting Lab: [facility] [address] [facility] [address] Performing Lab: [facility] [address] [facility] [address] WBC 4.33 10*3/uL L 4.50-11.00 RBC 4.92 [...] 10*3/uL 0.00-0.00 Jan 27, 2025 08:43 AM [facility] URINALYSIS CLEAN CATCH URINE Specimen Type: U RINE Comment: If Glucose = >500 and Ketones are positive, please alert the Physician. Ordering Provider: SINGH ALVAREZ Report Released Date/Time: Jan 18, 2025 04:42 PM Reporting Lab: [facility] [address] [facility] [address] Performing Lab: [facility] [address] [facility] [address] UA COLOR Light-Yellow Yellow UA APPEARANCE Clear Clear UA GLUCOSE Normal mg/dL Negative UA KETONES NEGATIVE mg/dL Negative UA BLOOD NEGATIVE mg/dL Negative UA PROTEIN NEGATIVE mg/dL Negative UA NITRITE NEGATIVE mg/dL Negative UA BILIRUBIN NEGATIVE mg/dL Negative UA SPECIFIC GRAVITY 1.025 H 1.016-1.022 UA pH 6.0 5.0-9.0 UA UROBILINOGEN Normal mg/dL <2.0 UA LEUKOCYTE NEGATIVE Negative Vital Signs: All taken on the encounter date This section contains inpatient and outpatient Vital Signs collected on the date of the Encounter. Date/Time Temperature Pulse Blood Pressure Respiratory Rate SP02 Pain Height Weight Body Mass Index Source Jan 27, 2025 08:56 AM 97.5 61 134/82 16 100 0 69 194 29 [facility] Social History: Smoking Status (Most current) and Tobacco Use (All prior to encounter date) This section includes the most current, and the historical, smoking and tobacco- related health factors from the [place] facility where the Encounter took place. Current Smoking Status This section includes the most current smoking, or tobacco-related health factor, from the [place] facility where the Encounter took place. Date/Time Current Smoking Status Comment [facility] Aug 02, 2024 11:00 AM VA-TOBACCO NEVER USED [facility] Tobacco Use History This section includes a history of the smoking, or tobacco-related health factors, that were collected on or before the date of the Encounter. The data comes from the [place] facility where the Encounter took place. Date/Time Smoking Status/Tobac co Use Comment Facility May 01, 2023 11:30 AM [facility]BACCO [facility] May 01, 2023 11:30 AM [facility] May 13, 2022 08:30 AM VA-TOBACCO FOR[facility]ER [facility] [place] [facility] May 13, 2022 08:30 AM VA-TOBACCO QUIT 15 YRS OR MORE [facility] [place] [facility] May 24, 2021 03:30 PM VA-TOBACCO NEVER USED [facility] [place] [facility] Jun 23, 2020 09:30 AM VA-TOBACCO FORMER USER [facility] [place] [facility] Jun 23, 2020 09:30 AM VA-TOBACCO QUIT 15 YRS OR MORE [facility] [place] [facility] Sep 18, 2018 09:48 AM VA-TOBACCO NEVER USED [facility] [place] [facility] Mar 26, 2018 10:01 AM LIFETIME NON-TOBACCO USER [facility] [place] [facility] Jun 17, 2016 09:41 AM LIFETIME NON-TOBACCO USER [facility] [place] [facility] Mar 03, 2011 11:19 AM QUIT TOBACCO USE > 7 YEARS AGO quit 20 years ago [facility] [place] [facility] Encounter Notes: All associated encounter notes This section contains the clinical notes associated to the Encounter. Date/Time Encounter Note(s) Provider Source Jan 27, 2025 09:33 AM PHYSICIAN NOTE: LOCAL TITLE: MD NOTE STANDARD TITLE: PHYSICIAN NOTE DATE OF NOTE: JAN 27, 2025@09:33 ENTRY DATE: JAN 27, 2025@09:33:49 AUTHOR: SINGH ALVAREZ EXP COSIGNER: URGENCY: STATUS: COMPLETED Patient Name: HARRIETT REENE VITALS: Patient temperature: 97.5 F [36.4 C] (01/27/2025 08:56) Blood pressure: 134/82 (01/27/2025 08:56) Patient height: 69 in [175.3 cm] (01/27/2025 08:56) Patient weight: 194 lb [88.00 kg] (01/27/2025 08:56) Patient BMI: BMI: 28.7 Patient pulse: 61 (01/27/2025 08:56) Patient respiration: 16 (01/27/2025 08:56) Patient Pulse Oximetry: 100% (01/27/2025 08:56) Pain Ratin (01/27/2025 08:56) Active [facility] Medications: Active Outpatient Medications (including Supplies): Active Outpatient Medications Status 1) AMLODIPINE BESYLATE 2.5MG TAB TAKE ONE TABLET BY MOUTH ONCE ACTIVE DAILY FOR BLOOD PRESSURE/HEART, DO NOT TAKE WITH GRAPEFRUIT JUICE Indication: FOR HIGH BLOOD PRESSURE 2) CALCIUM CARBONATE 650MG (CA 260MG) TAB TAKE ONE TABLET BY ACTIVE MOUTH TWICE DAILY Indication: FOR CALCIUM SUPPLEMENT 3) CHOLECALCIF 25MCG (D3-1,000UNIT) TAB TAKE ONE TABLET BY ACTIVE MOUTH ONCE DAILY FOR VITAMIN SUPPLEMENTATION Indication: FOR VITAMIN D DEFICIENCY 4) EZETIMIBE 10MG TAB TAKE ONE TABLET BY MOUTH ONCE DAILY TO ACTIVE LOWER CHOLESTEROL Remote Medications: No Active 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 2 days ago had 1 day history of bright red blood per rectum which lasted several hours while at work. No recurrence. No other symptoms. No abdominal pain, vomiting, change in bowel habits, diarrhea, fever, chills or weight loss. Review of systems No chest pain or dyspnea No abdominal pain No trouble urinating No fever or chills No cough Physical examination Well-developed well-nourished male in no acute distress Coronary no murmur Lungs clear Rectal external normal no masses No peripheral edema No lesions on feet Assessment and plan: 1. Rectal bleeding: Discussed possible causes including cancer, hemorrhoids, benign tumor Plan: Colonoscopy to look for cancer Fasting labs today Follow-up 6 months clinic visit and lab Medication Reconciliation: Outpatient: Has the patient been taking medications as documented in the EMLR? YES: The patient has been taking medications as documented in the EMLR. Essential Medication List for Review used to complete this medication reconciliation. INCLUDED IN THIS LIST: Alphabetical list of active outpatient prescriptions dispensed from this [place] (local) and dispensed from another [place] or [facility] facility (remote) as well as inpatient orders (local, pending and active), local clinic medications, locally documented non-VA medications, and local prescriptions that have or been discontinued in the past 90 days. - All changes in medications, including all non-VA/Herbal/OTC medications were entered into CPRS. - If there were any medications the patient should no longer take, they were discontinued. - The patient/caregiver was instructed to update this list, discard old lists, and take this list to the next appointment, whether with a [facility] or non-VA provider. BMI>30/>24.99 High Risk: At this visit, the health risks of obesity were reviewed and discussed with the Pella, and the benefits of a weight management treatment program, such as [facility]! was discussed and offered to the Pella. After discussing the health risks of being overweight or obese and providing information about available weight management treatment, and offering a referral to [facility] or another weight management treatment program outside the [facility], the patient DECLINES REFERRAL to [facility] or any other weight management treatment program at this time. PAVE Foot Check: A complete foot check was completed at this encounter. VISUAL INSPECTION: Includes inspection for skin breaks, deformity, erythema, trauma, pallor on elevation, dependent rubor, nail deformities, extensive callus and pitting edema. Visual exam results: Normal PEDAL PULSES: Includes palpation of dorsalis and posterior tibial pulses and signs/symptoms of vascular compromise like pain, pallor, paresthesia or paralysis. Present (even if diminished) SENSORY CHECK: Includes 10 gram Monofilament ([place]) test of sensation. Intact (Greater than or equal to 80% of sites checked) Abnormal (Less than 80% of sites checked): Intact LOW-RISK: LOW RISK INFORMATION PROVIDED: 1. Advised patient not to walk barefoot. 2. Explained the importance of daily foot checks for changes. 3. Stressed the importance of daily foot hygiene, including bathing and complete drying. The patient verbalized understanding and was offered a detailed handout on diabetic foot care. /sohail/ Singh Alvarez MD Staff Physician Signed: 01/27/2025 09:39 SINGH ALVAREZ [facility] [place] [facility] Jan 27, 2025 09:01 AM PREVENTIVE MEDICINE NURSING NOTE: LOCAL TITLE: CLINICAL REMINDERS/NURSING STANDARD TITLE: PREVENTIVE MEDICINE NURSING NOTE DATE OF NOTE: JAN 27, 2025@09:01 ENTRY DATE: JAN 27, 2025@09:01:46 AUTHOR: TIARA CLARK COSIGNER: URGENCY: STATUS: COMPLETED RHS Screen: RHS Screen Session Format: Face to Face Environmental Check Upon inquiry, the individual reports that the environment is safe to proceed. Informed Consent to Screen and Document The individual consents to proceed with screening. The individual consents to documentation of responses. PRIMARY SCREEN: In the past 12 months, how often did a current or former intimate partner (e.g., boyfriend, girlfriend, , , sexual partner): 1. Scream or curse at you Never 2. Insult or talk down to you Never 3. Threaten you with harm Never 4. Physically hurt you Never 5. Force or pressure you to have sexual contact against your will, or when you were unable to say no Never ?? The HITS tool (items 1-4 above) is [place] copyright protected by Girish Quijano MD, and the user has full rights to use it throughout the [place] system. PRIMARY SCREEN RESULT: The Primary Screen is NEGATIVE. The individual answered never to all forms of IPV above (i.e., answered never to all 5 items) The individual accepts education and/or resources: Other: n/a EDUCATION: Other: n/a COVID-19 Immunization: Refused Moderna Monovalent COVID-19 vaccine Immunization: COVID-19 (MODERNA), MRNA, LNP-S, PF, 50 MCG/0.5 ML (AGES 12+ YEARS) Refusal Reason: PATIENT DECISION Patient refuses all immunization(s) in the COVID-19 group Date Documented: 01/27/25 09:03 Advance Directive Screen MH AD: Patient has an up-to-date Advance Directive at an outside, non-va facility and was asked to forward a copy to his/her clinician. Comment: will get a copy to this [place] /sohail/ TIARA CLARK LPN LPN Signed: 01/27/2025 09:05 TIARA CLARK [facility]
--- OUTSIDE RECORDS SUMMARY | 2025-02-06 12:33 | XMS_ITS ---
Author Name [facility] [place] Address [address] [place] [address] Care Team Providers Care Assistant To The Dean Name Role Phone AMADEO IVETH Primary Care Provider Unavailrenan e Insurance Providers: All historical and current [...] Yarbrough's Name Patient's Relationship to Policy Yarbrough [facility] MEDICAID MEDICAID MEDIC AID Dec 05, 2017 MEDICAI D [id number] MONA RENEE PATIENT Selected Encounter This section includes the information on record at [place] for the Encounter. Date/Time Encounter Type Encounter Description Reason Provider Source February 05, 2025 10:30 AM COMPRE OPH EXAM EST PT 1/> OPTOMETRY ICD-10-CM H25.813 Combined forms of age-related cataract, bilateral MARLENE YOUSIF Encounter Template Text not used by [facility] Assessments - Encounter Diagnoses This section includes the primary and secondary diagnoses documented for the Encounter. Date/Time Primary/Secondary Diagnosis Diagnosis Name Provider Source February 05, 2025 11:02 AM PRIMARY Combined forms of age-related cataract, bilateral TYRELLACOSTASarah BethMARLENE Heath [facility] February 05, 2025 11:02 AM SECONDARY Presbyopia MARLENE YOUSIF [facility] Plan of Treatment: Future Appointments (+ 6 months) and Future Tests (+/- 45 days) The Plan of Treatment section includes future care activities for the patient [facility] [place] [facility] This section includes future appointments and future orders which are active, pending or scheduled. Future Appointments This section includes appointments that were scheduled to occur 6 months from the date of the Encounter, up to a maximum of 20 appointments. The data comes from all [place] treatment facilities. Appointment Date/Time Appointment Type Appointme nt Facility Name February 06, 2025 11:30 AM AMBULATORY - MEDICINE [facility] Jul 29, 2025 09:00 AM AMBULATORY - MEDICINE [facility] Active, Pending, and Scheduled Orders This section includes a listing of several types of active, pending, and scheduled orders, including clinic medications orders, diagnostic test orders, procedure orders and consult orders; where the start date of the order is 45 days before the date of the Encounter or 45 days after the date of theEncounter. The data comes from all [place] treatment facilities. Test Date/Time Test Type Test Details Facility Name Jan 08, 2025 06:25 PM Consult Order [facility]ITY [facility]ARE-ONCOLOGY Cons Insulation [facility] Jan 27, 2025 09:33 AM Consult Order [facility] CARE-GEN SURGERY Cons Insulation [facility] Lab Results: +/- 30 days of the encounter This section includes the Chemistry and Hematology Lab Results on record with [place] for the patient. Radiology Reports and Pathology Reports are provided separately, in subsequent sections. Lab Results This section contains the Chemistry/Hematology Results that were resulted 30 days before or 30 daysafter the date of the Encounter. Date/Time Source Result Type Result - Unit Interpretation Reference Range Specimen Type Comment Jan 27, 2025 08:43 AM [facility] TSH SERUM Specimen Type: SERUM No comment entered. Ordering Provider: IVETH CHILDS Report Released Date/Time: Jan 18, 2025 04:42 PM Reporting Lab: [facility] [address] [address] Performing Lab: [facility]ENTERUSETS [address] [address] TSH 1.48 u[IU]/mL 0.35-4.94 Jan 27, 2025 08:43 AM [facility] LIPID PANEL FASTING SERUM Specimen Type: SERU M No comment entered. Ordering Provider: IVETH CHILDS Report Released Date/Time: Jan 18, 2025 04:42 PM Reporting Lab: [facility] [address] [address] Performing Lab: [facility]USE[address] [address] CHOLESTEROL 255 mg/dL H TRIGLYCERIDE 211 mg/dL H 0-150 LDL calculated 163 mg/dL H 0-129 CHOL/HDL 5.1 HDL CHOLESTEROL 50 mg/dL >40 Jan 27, 2025 08:43 AM [facility] LIVER FUNCTION SERUM Specimen Type: SERUM No comment entered. Ordering Provider: IVETH CHILDS Report Released Date/Time: Jan 18, 2025 04:42 PM Reporting Lab: [facility] [address] Performing Lab: [facility]USE[address] [address] PROTEIN,TOTAL 7.1 g/dL 6.4-8.3 ALBUMIN 4.7 g/dL H 3.2-4.6 ALKALINE PHOSPHATASE 65 U/L 40-150 AST 23 U/L 5-34 ALT 34 U/L 0-55 BILIRUBIN, TOTAL 0.8 mg/dL 0.2-1.2 Jan 27, 2025 08:43 AM [facility] BASIC METABOLIC PANEL (fasting) SERUM Specime n Type: SERUM No comment entered. Ordering Provider: IVETH CHILDS Report Released Date/Time: Jan 18, 2025 04:42 PM Reporting Lab: [facility]USE[address] [address] Performing Lab: [facility] [address] [address] UREA NITROGEN 19 mg/dL 8-26 GLUCOSE 108 mg/dL H 65-100 SODIUM 140 mmol/L 136-145 POTASSIUM 3.9 mmol/L 3.5-5.1 CHLORIDE 106 mmol/L 98-107 CO2 24 meq/L 23-31 CALCIUM 9.2 mg/dL 8.8-10 CREATININE, Serum 0.95 mg/dL 0.72-1.25 eGFR(CKD-EPI 2020) 89 mL/min >60 Jan 27, 2025 08:43 AM [facility] PSA SERUM Specimen Type: SERUM No comment entered. Ordering Provider: IVETH CHILDS Report Released Date/Time: Jan 18, 2025 04:42 PM Reporting Lab: [address] [address] Performing Lab: [address] [address] PSA 1.8 ng/mL 0.0-4.0 Jan 27, 2025 08:43 AM [facility] CALCIUM SERUM Specimen Type: SERUM No comment entered. Ordering Provider: IVETH CHILDS Report Released Date/Time: Jan 18, 2025 04:42 PM Reporting Lab: [facility] [address] [facility] [address] Performing Lab: [address] [address] CALCIUM 9.2 mg/dL 8.8-10 Jan 27, 2025 08:43 AM [facility] VITAMIN D (25-OH) SERUM Specimen Type: SERUM No comment entered. Ordering Provider: IVETH CHILDS Report Released Date/Time: Jan 18, 2025 04:42 PM Reporting Lab: [facility] [address] Performing Lab: [address] [address] VITAMIN D (25-OH) 51.8 ng/mL H 20-50 Jan 27, 2025 08:43 AM [facility] CBC AND DIFF (AUTO) BLOOD Specimen Type: BLOO D No comment entered. Ordering Provider: IVETH CHILDS Report Released Date/Time: Jan 18, 2025 04:42 PM Reporting Lab: [facility] [address] [facility] [address] Performing Lab: [facility] [address] [address] WBC 4.33 10*3/uL L 4.50-11.00 RBC 4.92 [...] 10*3/uL 0.00-0.00 Jan 27, 2025 08:43 AM [facility] URINALYSIS CLEAN CATCH URINE Specimen Type: U RINE Comment: If Glucose = >500 and Ketones are positive, please alert the Physician. Ordering Provider: IVETH CHILDS Report Released Date/Time: Jan 18, 2025 04:42 PM Reporting Lab: [place] [facility] [place] [facility] [address] [facility] [address] Performing Lab: [facility] [place] [facility] [address] [facility] [address] UA COLOR Light-Yellow Yellow UA APPEARANCE Clear [...] and tobacco- related health factors from the [place] facility where the Encounter took place. Current Smoking Status This section includes the most current smoking, or tobacco-related health factor, from the [place] facility where the Encounter took place. Date/Time Current Smoking Status Comment [facility] Aug 02, 2024 11:00 AM VA-TOBACCO NEVER USED [facility] Tobacco Use History This section includes a history of the smoking, or tobacco-related health factors, that were collected on or before the date of the Encounter. The data comes from the [place] facility where the Encounter took place. Date/Time Smoking Status/Tobac co Use Comment Facility May 01, 2023 11:30 AM VA-TOBACCO FORMER USER [place] [facility] [place] [facility] May 01, 2023 11:30 AM VA-TOBACCO QUIT 15 YRS OR MORE [facility] [place] [facility] May 13, 2022 08:30 AM VA-TOBACCO FORMER USER [facility] [place] [facility] May 13, 2022 08:30 AM VA-TOBACCO QUIT 15 YRS OR MORE [facility] [place] [facility] May 24, 2021 03:30 PM VA-TOBACCO NEVER USED [facility] [place] [facility] Jun 23, 2020 09:30 AM VA-TOBACCO FORMER USER [facility] [place] [facility] Jun 23, 2020 09:30 AM VA-TOBACCO QUIT 15 YRS OR MORE [facility] [place] [facility] Sep 18, 2018 09:48 AM VA-TOBACCO NEVER USED [facility] [place] [facility] Mar 26, 2018 10:01 AM LIFETIME NON-TOBACCO USER [facility] [place] [facility] Jun 17, 2016 09:41 AM LIFETIME NON-TOBACCO USER [facility] [place] [facility] Mar 03, 2011 11:19 AM QUIT TOBACCO USE > 7 YEARS AGO quit 20 years ago [facility] Encounter Notes: All associated encounter notes This section contains the clinical notes associated to the Encounter. 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 He is complaining of blurred Reading vision on computer through PAL. Otherwise they are good for all other distances. Otherwise he denies any eye injury or disease. He would like to try a new PAL. OSWALDO: 03/22/2024 Dr. Forbes (-) Pain: (-) IBARRA: (-) Diplopia: (-) Flashes: (-) Floaters: (-) Amaurosis Fugax/Tia's: (-) Eye Injury: (-) Eye Surgery: (-) TBI O: Visual acuity with correction was 20/20 slow OD and 2 20/20 slow OS. Pupils were equal and round and reactive to light with no afferent defect. Extraocular muscles were intact and facial confrontation pineda were full. Lids and lashes were clear both eyes. Corneas and conjunctiva were clear both eyes. Anterior chambers were deep clear and quiet with open angles. Iris was flat both eyes. Incipient cortical and nuclear sclerotic lens changes were seen OU. Subjective Refraction: OD: +1.50-0.75 x089 20/20 OS: +2.00-0.08t046 20/20 Add: + 2.50 Intraocular pressures at 10:40 AM were 15 mmHg OU. Dilating Drops: 1GTT 1 % Tropicamide OU & 1GTT 2.5% Phenylephrine OU (Pt. ed. on side effects, dilation warning given and verbal consent obtained) Patient advised not to drive if they feel they have any symptoms which could affect their ability to drive safely. Patient advised not to engage in any activities which could put themselves or others at risk if they feel they have any symptoms which could affect their ability to perform those activities safely. Vitreous was clear OU. Approximately 45% horizontal and vertical cupping was seen OU with healthy rims and margins. Normal pigmentary architecture of the macula was seen with a two third artery to vein ratio. Retinal peripheries were intact in all quadrants OU. A: Incipient combined cataracts OU. Refraction disorder. Presbyopia P: Patient wants to try PAL with photo chromic lenses. Ordered today. The patient will return in 12 months or sooner if any problems arise. Cornelia Education: After discussion and answering all 's questions, Cornelia demonstrated and verbalized understanding of diagnosis and treatment. Yes [x] No [ ] Medication Reconciliation: Outpatient: Has the patient been taking medications as documented in the EMLR? YES: The patient has been taking medications as documented in the EMLR. Essential Medication List for Review used to complete this medication reconciliation. INCLUDED IN THIS LIST: Alphabetical list of active outpatient prescriptions dispensed from this [facility] (local) and dispensed from another [place] or [facility] facility (remote) as well as [...] whether with a VA or non-VA provider. 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
--- OUTSIDE RECORDS SUMMARY | 2025-02-06 12:33 | XMS_ITS | Continuity of Care Document ---
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 It does not include entries that were removed or entered in error. 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, 2024 Entered By: IVETH CHILDS Comment: Followed by private dental [facility] HTN - Hypertension (SCT [id number]) Active 022 Condition May 13, 2022 Entered By: IVETH CHILDS Comment: treated with medication [facility] Closed fracture of facial bone Active 021 Condition Jun 09, 2021 Entered By: IVETH CHILDS Comment: bilateral maxillary and nasal bones [facility] Headache (SCT [id number]) Active 021 Condition Nov 25, 2020 Entered By: IVETH CHILDS Comment: refer to neurology [facility] 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 [facility] Hypercholesterolemia * (ICD-9-CM 272.0) Active 012 Condition [facility] Epidermal Cyst Active 011 Condition [facility] Environment contains physical hazards Active Condition May 01 3 Entered By: IVETH CHILDS Comment: provided education [facility] Exposure to potentially hazardous substance ([facility] [[email or web address] [id number]) Active Condition Jan 09 4 Entered By: AIDEN GARDINER Comment: Entered automatically through [facility] Problem List documentation program [facility] Diagnosis: ICD-10-CM H25.813 Combined forms of age-related cataract, bilateral Active Diagnosis [facility] Diagnosis: ICD-10-CM C21.0 Malignant neoplasm of anus, unspecified Active Diagnosis [facility] Diagnosis: ICD-10-CM I10 Essential (primary) hypertension Active Diagnosis [facility] Diagnosis: ICD-10-CM Z46.0 Encounter for fit/adjst of spectacles and contact lenses Active Diagnosis [facility] Diagnosis: ICD-10-CM M54.50 Low back pain, unspecified Active Diagnosis [facility] Diagnosis: ICD-10-CM G60.9 Hereditary and idiopathic neuropathy, unspecified Active Diagnosis [facility] Diagnosis: ICD-10-CM M54.16 Radiculopathy, lumbar region Active Diagnosis [facility] Diagnosis: ICD-10-CM G60.3 Idiopathic progressive neuropathy Active Diagnosis [facility] Medications Combined list of outpatient medications from Department of Defense and Veterans Affairs facilities.Medications provided include 1) outpatient medications from the last 15 months, and 2) patient-reported medications. Medication Details Route Status Patient Instructions Prescription Expires Prescription Number Last Dispense Date Ordering Provider Order Date Order Qty Source AMLODIPINE BESYLATE 2.5MG TAB TAKE ONE TABLET BY MOUTH ONCE DAILY FOR BLOOD PRESSURE /HEART, DO NOT TAKE WITH GRAPEFRU IT JUICE ORAL ACTIVE 06/10/2025 [id number] [facility] CHILDS 2023 90 [facility] AMLODIPINE BESYLATE 2.5MG TAB TAKE ONE TABLET BY MOUTH ONCE DAILY FOR BLOOD PRESSURE /HEART, DO NOT TAKE WITH GRAPEFRU IT JUICE ORAL DISCONT INUED 05/01/2024 [id number] 4 [facility] CHILDS D 2022 90 [facility] CALCIUM CARBONATE 650MG TAB TAKE ONE TABLET BY MOUTH TWICE DAILY FOR CALCIUM SUPPLEME NT ORAL ACTIVE 04/02/2025 [id number] 5 [facility] CHILDS D 2023 200 [facility] CHOLECALCIF SMILEY 25MCG (1,000UNIT) TAB TAKE ONE TABLET BY MOUTH ONCE DAILY FOR VITAMIN SUPPLEME NTATION ORAL ACTIVE 04/02/2025 [id number] 5 [facility] CHILDS JUANA D 2023 90 [facility] EZETIMIBE 10MG TAB TAKE ONE TABLET BY MOUTH ONCE DAILY TO LOWER CHOLESTE ROL ORAL ACTIVE 06/10/2025 [id number] 5 [facility] CHILDS D 2023 90 [facility] EZETIMIBE 10MG TAB TAKE ONE TABLET BY MOUTH ONCE DAILY TO LOWER CHOLESTE ROL ORAL DISCONT INUED 05/01/2024 [id number] 4 [facility] CHILDS D 2022 90 [facility] Allergies, Adverse Reactions, Alerts Combined list of allergies from Department of Defense and Veterans Affairs facilities. It does not include entries that were removed or entered in error. Substance Category Reaction Severity Reaction type Status Date Reported Comments Source NIACIN Propensity to adverse reactions to drug (finding) Flushing active 9 [facility] PRAVASTATIN Propensity to adverse reactions to drug (finding) Rhabdomyoly sis active 4 [facility] Immunizations Combined list of available immunizations from the Department of Defense and Veterans Affairs facilities. Immunization Series Date Given Administered By Site Reaction Lot Number CVX Code Drug Environmental Officer Status Comments Source INFLUENZA, SPLIT VIRUS, TRIVALENT, PF 2023 ETHAN CLARK LEFT DELTO ID [id number] 140 complet ed Completed Series, [place]MINISTE [place], [facility] INFLUENZA, INJECTABLE, QUADRIVALENT, PRESERVATIVE FREE 2023 CHELLE FLOWER LEFT DELTO ID [id number] 150 complet ed Completed Series, [place], [facility] RSV, BIVALENT, PROTEIN SUBUNIT RSVPREF, DILUENT RECONSTITUTED , 0.5 ML, PF 2023 CHEL[place]LOEWR [place] ID [id number] 305 complet ed Completed Series, [place]MIN[place], [facility] INFLUENZA, INJECTABLE, QUADRIVALENT, PRESERVATIVE FREE 2020 150 complet ed [facility] COVID-19 (PFIZER), MRNA, LNP-S, PF, 30 MCG/0.3 ML DOSE 2 2020 208 complet ed [facility] COVID-19 (PFIZER), MRNA, LNP-S, PF, 30 MCG/0.3 ML DOSE 1 2020 208 complet ed [facility] INFLUENZA, INJECTABLE, QUADRIVALENT, PRESERVATIVE FREE 2019 150 complet ed [facility] ZOSTER RECOMBINANT 2 2019 187 complet ed [facility] ZOSTER RECOMBINANT 1 2018 187 complet ed [facility] INFLUENZA, INJECTABLE, QUADRIVALENT 2018 158 complet ed 02, [facility] Administe red by: [facility] Clinician (NPI=Not Provided) . Partner 62 Lot#: [id number] 1 Mfr: SEQIRUS [facility] INFLUENZA, SEASONAL, INJECTABLE 2017 141 complet ed Site: Right Deltoid [facility] PNEUMOCOCCAL POLYSACCHARID E [id number] 2016 33 complet ed [facility] FLU,3 YRS (HISTORICAL) 2015 88 complet ed Site: Left Deltoid [facility] FLU,3 YRS (HISTORICAL) 2014 88 complet ed Site: Left Deltoid [facility] DTAP, UNSPECIFIED FORMULATION 2010 107 complet ed Site: Right Deltoid [place] [facility] [place] [facility] Results Combined list of recent chemistry, hematology and other laboratory results from Department of Defense and Veterans Affairs, ranging from 15 months to all on record, depending upon the facility. Order Name Results Value Reference Range Date Interpretation Specimen Comments Source TSH THYROTROPI N [UNITS/VOL UME] IN SERUM OR PLASMA BY DETECTION LIMIT <= 0.005 MIU/L 1.48 u[IU]/mL 0.35 - 4.94 01/27 Specimen Type: SERUM No comment entered. Ordering Provider: GORDON CHILDS Report Released Date/Time: Jan 18, 2025 04:42 PM Reporting Lab: [place] [facility] [place] [address] [address] Performing Lab: [place] [facility] [facility] [address] [address] [facility] LIPID PANEL FASTING CHOLESTERO L [MASS/VOLU ME] IN SERUM OR PLASMA 255 mg/dL 01/27 H Specimen Type: SERUM No comment entered. Ordering Provider: GORDON CHILDS Report Released Date/Time: Jan 18, 2025 04:42 PM Reporting Lab: [place] [facility] [facility] [place] [facility] [address] [facility] [address] Performing Lab: [place] [facility] [address] [address] [facility] LIPID PANEL FASTING TRIGLYCERI DE [MASS/VOLU ME] IN SERUM OR PLASMA 211 mg/dL 0 - 150 01/27 H Specimen Type: SERUM No comment entered. Ordering Provider: GORDON CHILDS Report Released Date/Time: Jan 18, 2025 04:42 PM Reporting Lab: [place] [facility] [place] [facility] [address] [facility] [address] Performing Lab: [place] [facility] [place] [address] [address] [place] [facility] [facility] [place] [facility] LIPID PANEL FASTING CHOLESTERO L IN LDL [MASS/VOLU ME] IN SERUM OR PLASMA BY CALCULATIO N 163 mg/dL 0 - 129 01/27 H Specimen Type: SERUM No comment entered. Ordering Provider: GORDON CHILDS Report Released Date/Time: Jan 18, 2025 04:42 PM Reporting Lab: [facility] [place] [facility] [address] [facility] [address] Performing Lab: [facility] [place] [facility] [address] [facility] [address] [facility] LIPID PANEL FASTING CHOLESTERO L.TOTAL/CH OLESTEROL IN HDL [MASS RATIO] IN SERUM OR PLASMA 5.1 01/27 Specimen Type: SERUM No comment entered. Ordering Provider: GORDON CHILDS Report Released Date/Time: Jan 18, 2025 04:42 PM Reporting Lab: [facility] [place] [facility] [address] [facility] [address] Per[place] Lab: [place] [facility] [facility] [address] [facility] [address] [facility] LIPID PANEL FASTING CHOLESTERO L IN HDL [MASS/VOLU ME] IN SERUM OR PLASMA 50 mg/dL 40 01/27 Specimen Type: SERUM No comment entered. Ordering Provider: GORDON CHILDS Report Released Date/Time: Jan 18, 2025 04:42 PM Reporting Lab: [facility] [place] [facility] [address] [facility] [address] Performing Lab: [facility] [place] [facility] [address] [facility] [address] [facility] LIVER FUNCTION PROTEIN [MASS/VOLU ME] IN SERUM OR PLASMA 7.1 g/dL 6.4 - 8.3 01/27 Specimen Type: SERUM No comment entered. Ordering Provider: GORDON CHILDS Report Released Date/Time: Jan 18, 2025 04:42 PM Reporting Lab: [facility] [place] [facility] [address] [facility] [address] Performing Lab: [place] [facility] [facility] [address] [facility] [address] [facility] LIVER FUNCTION ALBUMIN [MASS/VOLU ME] IN SERUM OR PLASMA BY BROMOCRESO L PURPLE (BCP) DYE BINDING METHOD 4.7 g/dL 3.2 - 4.6 01/27 H Specimen Type: SERUM No comment entered. Ordering Provider: GORDON CHILDS Report Released Date/Time: Jan 18, 2025 04:42 PM Reporting Lab: [facility] [place] [facility] [address] [facility] [address] Performing Lab: [place] [facility] [facility] [address] [facility] [address] [facility] LIVER FUNCTION ALKALINE PHOSPHATAS E [ENZYMATIC ACTIVITY/V OLUME] IN SERUM OR PLASMA 65 U/L 40 - 150 01/27 Specimen Type: SERUM No comment entered. Ordering Provider: GORDON CHILDS Report Released Date/Time: Jan 18, 2025 04:42 PM Reporting Lab: [facility] [address] [facility] [address] Performing Lab: [place] [facility] [facility] [address] [facility] [address] [facility] LIVER FUNCTION ASPARTATE AMINOTRANS FERASE [ENZYMATIC ACTIVITY/V OLUME] IN SERUM OR PLASMA BY WITH P-5'-P 23 U/L 5 - 34 01/27 Specimen Type: SERUM No comment entered. Ordering Provider: GORDON CHILDS Report Released Date/Time: Jan 18, 2025 04:42 PM Reporting Lab: [place] [facility] [facility] [address] [facility] [address] Performing Lab: [place] [facility] [facility] [address] [facility] [address] [facility] LIVER FUNCTION ALANINE AMINOTRANS FERASE [ENZYMATIC ACTIVITY/V OLUME] IN SERUM OR PLASMA BY WITH P-5'-P 34 U/L 0 - 55 01/27 Specimen Type: SERUM No comment entered. Ordering Provider: GORDON CHILDS Report Released Date/Time: Jan 18, 2025 04:42 PM Reporting Lab: [facility] [place] [facility] [address] [facility] [address] Performing Lab: [place] [facility] [facility] [address] [facility] [address] [facility] LIVER FUNCTION BILIRUBIN. TOTAL [MASS/VOLU ME] IN SERUM OR PLASMA 0.8 mg/dL 0.2 - 1.2 01/27 Specimen Type: SERUM No comment entered. Ordering Provider: GORDON CHILDS Report Released Date/Time: Jan 18, 2025 04:42 PM Reporting Lab: [place] [facility] [place] [facility] [address] [facility] [address] Performing Lab: [place] [facility] [facility] [address] [facility] [address] [facility] BASIC METABOLI C PANEL (fasting ) UREA NITROGEN [MASS/VOLU ME] IN SERUM OR PLASMA 19 mg/dL 8 - 26 01/27 Specimen Type: SERUM No comment entered. Ordering Provider: GORDON CHILDS Report Released Date/Time: Jan 18, 2025 04:42 PM Reporting Lab: [facility] [place] [facility] [address] [facility] [address] Performing Lab: [place] [facility] [facility] [address] [facility] [address] [facility] BASIC METABOLI C PANEL (fasting ) GLUCOSE [MASS/VOLU ME] IN SERUM OR PLASMA 108 mg/dL 65 - 100 01/27 H Specimen Type: SERUM No comment entered. Ordering Provider: GORDON CHILDS Report Released Date/Time: Jan 18, 2025 04:42 PM Reporting Lab: [place] [facility] [facility] [address] [facility] [address] Performing Lab: [place] [facility] [facility] [address] [facility] [address] [facility] BASIC METABOLI C PANEL (fasting ) SODIUM [MOLES/VOL UME] IN SERUM OR PLASMA 140 mmol/L 136 - 145 01/27 Specimen Type: SERUM No comment entered. Ordering Provider: GORDON CHILDS Report Released Date/Time: Jan 18, 2025 04:42 PM Reporting Lab: [facility] [place] [address] [address] Performing Lab: [place] [facility] [place] [facility] [address] [facility] [address] [facility] [place] [facility] BASIC METABOLI C PANEL (fasting ) POTASSIUM [MOLES/VOL UME] IN SERUM OR PLASMA 3.9 mmol/L 3.5 - 5.1 01/27 Specimen Type: SERUM No comment entered. Ordering Provider: GORDON CHILDS Report Released Date/Time: Jan 18, 2025 04:42 PM Reporting Lab: [place] [facility] [address] [address] Performing Lab: [place] [facility] [address] [address] [facility] BASIC METABOLI C PANEL (fasting ) CHLORIDE [MOLES/VOL UME] IN SERUM OR PLASMA 106 mmol/L 98 - 107 01/27 Specimen Type: SERUM No comment entered. Ordering Provider: GORDON CHILDS Report Released Date/Time: Jan 18, 2025 04:42 PM Reporting Lab: [facility] [place] [address] [address] Performing Lab: [facility] [place] [address] [address] [place] [facility] [facility] BASIC METABOLI C PANEL (fasting ) CARBON DIOXIDE, TOTAL [MOLES/VOL UME] IN SERUM OR PLASMA 24 meq/L 23 - 31 01/27 Specimen Type: SERUM No comment entered. Ordering Provider: GORDON CHILDS Report Released Date/Time: Jan 18, 2025 04:42 PM Reporting Lab: [facility] [place] [address] [address] Performing Lab: [facility] [place] [address] [address] [place] [facility] [place] [facility] BASIC METABOLI C PANEL (fasting ) CALCIUM [MASS/VOLU ME] IN SERUM OR PLASMA 9.2 mg/dL 8.8 - 10 01/27 Specimen Type: SERUM No comment entered. Ordering Provider: GORDON CHILDS Report Released Date/Time: Jan 18, 2025 04:42 PM Reporting Lab: [facility] [address] Performing Lab: [facility] [address] [facility] BASIC METABOLI C PANEL (fasting ) CREATININE [MASS/VOLU ME] IN SERUM OR PLASMA 0.95 mg/dL 0.72 - 1.25 01/27 Specimen Type: SERUM No comment entered. Ordering Provider: GORDON CHILDS Report Released Date/Time: Jan 18, 2025 04:42 PM Reporting Lab: [facility] [address] [address] Performing Lab: [facility] [address] [facility] BASIC METABOLI C PANEL (fasting ) GLOMERULAR FILTRATION RATE/1.73 SQ M.PREDICTE D [VOLUME RATE/AREA] IN SERUM, PLASMA OR BLOOD BY CREATININE -BASED FORMULA (CKD-EPI 2020) 89 mL/min 60 01/27 Specimen Type: SERUM No comment entered. Ordering Provider: GORDON CHILDS Report Released Date/Time: Jan 18, 2025 04:42 PM Reporting Lab: [place] [facility] [facility] [address] [address] Performing Lab: [facility] [address] [facility] PSA PROSTATE SPECIFIC AG [MASS/VOLU ME] IN SERUM OR PLASMA BY IMMUNOASSA Y 1.8 ng/mL 0.0 - 4.0 01/27 Specimen Type: SERUM No comment entered. Ordering Provider: GORDON CHILDS Report Released Date/Time: Jan 18, 2025 04:42 PM Reporting Lab: [place] [facility] [address] [facility] [address] Performing Lab: [facility] [place] [facility] [address] [facility] [address] [facility] CALCIUM CALCIUM [MASS/VOLU ME] IN SERUM OR PLASMA 9.2 mg/dL 8.8 - 10 01/27 Specimen Type: SERUM No comment entered. Ordering Provider: GORDON CHILDS Report Released Date/Time: Jan 18, 2025 04:42 PM Reporting Lab: [facility] [place] [facility] [address] [facility] [address] Performing Lab: [place] [facility] [facility] [address] [facility] [address] [facility] VITAMIN D (25-OH) 25-HYDROXY VITAMIN D3+25-HYDR OXYVITAMIN D2 [MASS/VOLU ME] IN SERUM OR PLASMA 51.8 ng/mL 20 - 50 01/27 H Specimen Type: SERUM No comment entered. Ordering Provider: GORDON CHILDS Report Released Date/Time: Jan 18, 2025 04:42 PM Reporting Lab: [facility] [place] [facility] [address] [facility] [address] Performing Lab: [facility]N [facility] SYSTEM[facility] [address] [facility] [address] [facility]ITALN [facility] CBC AND DIFF (AUTO) LEUKOCYTES [#/VOLUME] IN BLOOD BY AUTOMATED COUNT 4.33 10*3/uL 4.50 - 11.00 01/27 L Specimen Type: BLOOD No comment entered. Ordering Provider: GORDON CHILDS Report Released Date/Time: Jan 18, 2025 04:42 PM Reporting Lab: [facility] [place] [facility] [address] [facility] [address] Performing Lab: [facility] SYSTEM[facility] [address] [facility] [address] [facility] CBC AND DIFF (AUTO) ERYTHROCYT ES [#/VOLUME] IN BLOOD BY AUTOMATED COUNT 4.92 10*6/uL 4.23 - 5.66 01/27 Specimen Type: BLOOD No comment entered. Ordering Provider: GORDON CHILDS Report Released Date/Time: Jan 18, 2025 04:42 PM Reporting Lab: [place] [facility] [place] [facility] [address] [facility] [address] Performing Lab: [place] [facility] [place] [facility] [address] [facility] [address] [place] [facility] [place] [facility] CBC AND DIFF (AUTO) HEMOGLOBIN [MASS/VOLU ME] IN BLOOD 15.2 g/dL 12.8 - 17 01/27 Specimen Type: BLOOD No comment entered. Ordering Provider: GORDON CHILDS Report Released Date/Time: Jan 18, 2025 04:42 PM Reporting Lab: [facility] [place] [facility] [address] [facility] [address] Performing Lab: [place] [facility] [place] [address] [address] [place] [facility] CBC AND DIFF (AUTO) HEMATOCRIT [VOLUME FRACTION] OF BLOOD BY AUTOMATED COUNT 44.3 39.2 - 50.4 01/27 Specimen Type: BLOOD No comment entered. Ordering Provider: GORDON CHILDS Report Released Date/Time: Jan 18, 2025 04:42 PM Reporting Lab: [place] [facility] [place] [facility] [address] [facility] [address] Performing Lab: [place] [facility] [place] [facility] [address] [facility] [address] [place] [facility] [place] [facility] CBC AND DIFF (AUTO) MCV [ENTITIC VOLUME] BY AUTOMATED COUNT 90.0 fL 82 - 99 01/27 Specimen Type: BLOOD No comment entered. Ordering Provider: GORDON CHILDS Report Released Date/Time: Jan 18, 2025 04:42 PM Reporting Lab: [place] [facility] [place] [facility] [address] [facility] [address] Performing Lab: [facility] [place] [facility] [address] [facility] [address] [facility] [place] [facility] CBC AND DIFF (AUTO) MCHC [MASS/VOLU ME] BY AUTOMATED COUNT 34.3 g/dL 30.8 - 35.1 01/27 Specimen Type: BLOOD No comment entered. Ordering Provider: GORDON CHILDS Report Released Date/Time: Jan 18, 2025 04:42 PM Reporting Lab: [place] [facility] [place] [facility] [address] [facility] [address] Performing Lab: [place] [facility] [place] [address] [address] [facility] [place] [facility] CBC AND DIFF (AUTO) PLATELETS [#/VOLUME] IN BLOOD BY AUTOMATED COUNT 183 10*3/uL 140 - 360 01/27 Specimen Type: BLOOD No comment entered. Ordering Provider: GORDON CHILDS Report Released Date/Time: Jan 18, 2025 04:42 PM Reporting Lab: [facility] [place] [address] [address] Performing Lab: [place] [facility] [place] [address] [address] [facility] [place] [facility] CBC AND DIFF (AUTO) PLATELET MEAN VOLUME [ENTITIC VOLUME] IN BLOOD BY AUTOMATED COUNT 9.9 fL 9.2 - 12.4 01/27 Specimen Type: BLOOD No comment entered. Ordering Provider: GORDON CHILDS Report Released Date/Time: Jan 18, 2025 04:42 PM Reporting Lab: [facility] [place] [place] [address] [address] Performing Lab: [place] [facility] [address] [address] [facility] [place] [facility] CBC AND DIFF (AUTO) ERYTHROCYT E DISTRIBUTI ON WIDTH [RATIO] BY AUTOMATED COUNT 12.2 12.0 - 16.0 01/27 Specimen Type: BLOOD No comment entered. Ordering Provider: GORDON CHILDS Report Released Date/Time: Jan 18, 2025 04:42 PM Reporting Lab: [facility] [place] [address] [address] Performing Lab: [place] [facility] [address] [place] [address] [place] [facility] [facility] CBC AND DIFF (AUTO) MONOCYTES [#/VOLUME] IN BLOOD BY AUTOMATED COUNT 0.52 10*3/uL 0.30 - 1.10 01/27 Specimen Type: BLOOD No comment entered. Ordering Provider: GORDON CHILDS Report Released Date/Time: Jan 18, 2025 04:42 PM Reporting Lab: [facility] [place] [facility] [address] [facility] [address] Performing Lab: [facility] [place] [facility] [address] [facility] [address] [place] [facility] [facility] CBC AND DIFF (AUTO) MCH [ENTITIC MASS] BY AUTOMATED COUNT 30.9 pg 26.2 - 32.6 01/27 Specimen Type: BLOOD No comment entered. Ordering Provider: GORDON CHILDS Report Released Date/Time: Jan 18, 2025 04:42 PM Reporting Lab: [facility] [place] [address] [address] Performing Lab: [facility] [place] [address] [address] [place] [facility] [facility] CBC AND DIFF (AUTO) NEUTROPHIL S/100 LEUKOCYTES IN BLOOD BY AUTOMATED COUNT 58.6 43.7 - 75.8 01/27 Specimen Type: BLOOD No comment entered. Ordering Provider: GORDON CHILDS Report Released Date/Time: Jan 18, 2025 04:42 PM Reporting Lab: [facility] [place] [address] [address] Performing Lab: [facility] [place] [address] [address] [place] [facility] [facility] CBC AND DIFF (AUTO) LYMPHOCYTE S/100 LEUKOCYTES IN BLOOD BY AUTOMATED COUNT 23.8 14.0 - 42.3 01/27 Specimen Type: BLOOD No comment entered. Ordering Provider: GORDON CHILDS Report Released Date/Time: Jan 18, 2025 04:42 PM Reporting Lab: [facility] [place] [address] [place] [address] Performing Lab: [place] [facility] [facility] [address] [facility] [address] [place] [facility] [place] [facility] CBC AND DIFF (AUTO) MONOCYTES/ 100 LEUKOCYTES IN BLOOD BY AUTOMATED COUNT 12.0 5.1 - 13.7 01/27 Specimen Type: BLOOD No comment entered. Ordering Provider: GORDON CHILDS Report Released Date/Time: Jan 18, 2025 04:42 PM Reporting Lab: [facility] [place] [facility] [address] [facility] [address] Performing Lab: [place] [facility] [facility] [address] [facility] [address] [place] [facility] [facility] CBC AND DIFF (AUTO) EOSINOPHIL S/100 LEUKOCYTES IN BLOOD BY AUTOMATED COUNT 4.6 0.4 - 6.8 01/27 Specimen Type: BLOOD No comment entered. Ordering Provider: GORDON CHILDS Report Released Date/Time: Jan 18, 2025 04:42 PM Reporting Lab: [facility] [place] [facility] [address] [facility] [address] Performing Lab: [place] [facility] [facility] [address] [facility] [address] [facility] [place] [facility] CBC AND DIFF (AUTO) BASOPHILS/ 100 LEUKOCYTES IN BLOOD BY AUTOMATED COUNT 0.5 0.1 - 2.0 01/27 Specimen Type: BLOOD No comment entered. Ordering Provider: GORDON CHILDS Report Released Date/Time: Jan 18, 2025 04:42 PM Reporting Lab: [facility] [place] [facility] [address] [facility] [address] Performing Lab: [place] [facility] [facility] [address] [facility] [address] [place] [facility] [place] [facility] CBC AND DIFF (AUTO) NEUTROPHIL S [#/VOLUME] IN BLOOD BY AUTOMATED COUNT 2.54 10*3/uL 2.20 - 7.60 01/27 Specimen Type: BLOOD No comment entered. Ordering Provider: GORDON CHILDS Report Released Date/Time: Jan 18, 2025 04:42 PM Reporting Lab: [facility] [place] [facility] [address] [facility] [address] Performing Lab: [facility] [place] [facility] [address] [facility] [address] [facility] [place] [facility] CBC AND DIFF (AUTO) LYMPHOCYTE S [#/VOLUME] IN BLOOD BY AUTOMATED COUNT 1.03 10*3/uL 1.00 - 3.20 01/27 Specimen Type: BLOOD No comment entered. Ordering Provider: GORDON CHILDS Report Released Date/Time: Jan 18, 2025 04:42 PM Reporting Lab: [facility] [place] [facility] [address] [facility] [address] Performing Lab: [facility] [place] [facility] [address] [facility] [address] [facility] [place] [facility] CBC AND DIFF (AUTO) EOSINOPHIL S [#/VOLUME] IN BLOOD BY AUTOMATED COUNT 0.20 10*3/uL 0.03 - 0.44 01/27 Specimen Type: BLOOD No comment entered. Ordering Provider: GORDON CHILDS Report Released Date/Time: Jan 18, 2025 04:42 PM Reporting Lab: [facility] [place] [facility] [address] [facility] [address] Performing Lab: [facility] [place] [facility] [address] [place] [address] [facility] [place] [facility] CBC AND DIFF (AUTO) BASOPHILS [#/VOLUME] IN BLOOD BY AUTOMATED COUNT 0.02 10*3/uL 0.01 - 0.13 01/27 Specimen Type: BLOOD No comment entered. Ordering Provider: GORDON CHILDS Report Released Date/Time: Jan 18, 2025 04:42 PM Reporting Lab: [facility] [place] [facility] [address] [facility] [address] Performing Lab: [facility] [place] [facility] [address] [place] [address] [facility] [place] [facility] CBC AND DIFF (AUTO) IMMATURE GRANULOCYT ES/100 LEUKOCYTES IN BLOOD BY AUTOMATED COUNT 0.5 0.0 - 0.7 01/27 Specimen Type: BLOOD No comment entered. Ordering Provider: GORDON CHILDS Report Released Date/Time: Jan 18, 2025 04:42 PM Reporting Lab: [facility] [place] [address] [address] Performing Lab: [facility] [address] [address] [facility] [place] [facility] CBC AND DIFF (AUTO) IMMATURE GRANULOCYT ES [#/VOLUME] IN BLOOD BY AUTOMATED COUNT 0.02 10*3/uL 0.00 - 0.06 01/27 Specimen Type: BLOOD No comment entered. Ordering Provider: GORDON CHILDS Report Released Date/Time: Jan 18, 2025 04:42 PM Reporting Lab: [facility] [place] [address] [address] Performing Lab: [place] [facility] [place] [address] [address] [place] [facility] [facility] CBC AND DIFF (AUTO) NUCLEATED ERYTHROCYT ES/100 LEUKOCYTES [RATIO] IN BLOOD BY AUTOMATED COUNT 0.0 0.0 - 0.0 01/27 Specimen Type: BLOOD No comment entered. Ordering Provider: GORDON CHILDS Report Released Date/Time: Jan 18, 2025 04:42 PM Reporting Lab: [facility] [place] [address] [address] Performing Lab: [facility] [place] [address] [address] [place] [facility] [place] [facility] CBC AND DIFF (AUTO) NUCLEATED ERYTHROCYT ES [#/VOLUME] IN BLOOD BY AUTOMATED COUNT 0.00 10*3/uL 0.00 - 0.00 01/27 Specimen Type: BLOOD No comment entered. Ordering Provider: GORDON CHILDS Report Released Date/Time: Jan 18, 2025 04:42 PM Reporting Lab: [place] [facility] [place] [address] [address] Performing Lab: [facility] [place] [facility] [address] [facility] [address] [place] [facility] [place] [facility] URINALYS IS CLEAN CATCH COLOR OF URINE Light-Ye llow 01/27 Specimen Type: URINE Comment: If Glucose = >500 and Ketones are positive, please alert the Physician. Ordering Provider: GORDON CHILDS Report Released Date/Time: Jan 18, 2025 04:42 PM Reporting Lab: [place] [facility] [place] [address] [address] Performing Lab: [place] [facility] [place] [address] [address] [place] [facility] [place] [facility] URINALYS IS CLEAN CATCH APPEARANCE OF URINE Clear 01/27 Specimen Type: URINE Comment: If Glucose = >500 and Ketones are positive, please alert the Physician. Ordering Provider: GORDON CHILDS Report Released Date/Time: Jan 18, 2025 04:42 PM Reporting Lab: [place] [facility] [place] [address] [address] Performing Lab: [place] [facility] [place] [address] [address] [place] [facility] [place] [facility] URINALYS IS CLEAN CATCH GLUCOSE [MASS/VOLU ME] IN URINE Normalmg /dL 01/27 Specimen Type: URINE Comment: If Glucose = >500 and Ketones are positive, please alert the Physician. Ordering Provider: GORDON CHILDS Report Released Date/Time: Jan 18, 2025 04:42 PM Reporting Lab: [place] [facility] [place] [address] [address] Performing Lab: [place] [facility] [place] [address] [address] [place] [facility] [place] [facility] URINALYS IS CLEAN CATCH KETONES [MASS/VOLU ME] IN URINE BY TEST STRIP NEGATIVE mg/dL 01/27 Specimen Type: URINE Comment: If Glucose = >500 and Ketones are positive, please alert the Physician. Ordering Provider: GORDON CHILDS Report Released Date/Time: Jan 18, 2025 04:42 PM Reporting Lab: [facility] [place] [facility] [address] [facility] [address] Performing Lab: [facility] [place] [facility] [address] [facility] [address] [facility] [place] [facility] URINALYS IS CLEAN CATCH ERYTHROCYT ES [PRESENCE] IN URINE SEDIMENT BY LIGHT MICROSCOPY NEGATIVE mg/dL 01/27 Specimen Type: URINE Comment: If Glucose = >500 and Ketones are positive, please alert the Physician. Ordering Provider: GORDON CHILDS Report Released Date/Time: Jan 18, 2025 04:42 PM Reporting Lab: [facility] [place] [facility] [address] [facility] [address] Performing Lab: [facility] [place] [facility] [address] [facility] [address] [facility] [place] [facility] URINALYS IS CLEAN CATCH PROTEIN [MASS/VOLU ME] IN URINE BY TEST STRIP NEGATIVE mg/dL 01/27 Specimen Type: URINE Comment: If Glucose = >500 and Ketones are positive, please alert the Physician. Ordering Provider: GORDON CHILDS Report Released Date/Time: Jan 18, 2025 04:42 PM Reporting Lab: [facility] [place] [facility] [address] [facility] [address] Performing Lab: [facility] [place] [facility] [address] [facility] [address] [facility] [place] [facility] URINALYS IS CLEAN CATCH NITRITE [PRESENCE] IN URINE NEGATIVE mg/dL 01/27 Specimen Type: URINE Comment: If Glucose = >500 and Ketones are positive, please alert the Physician. Ordering Provider: GORDON CHILDS Report Released Date/Time: Jan 18, 2025 04:42 PM Reporting Lab: [facility] [place] [facility] [address] [facility] [address] Performing Lab: [facility] [place] [facility] [address] [facility] [address] [facility] [place] [facility] URINALYS IS CLEAN CATCH BILIRUBIN. TOTAL [PRESENCE] IN URINE NEGATIVE mg/dL 01/27 Specimen Type: URINE Comment: If Glucose = >500 and Ketones are positive, please alert the Physician. Ordering Provider: GORDON CHILDS Report Released Date/Time: Jan 18, 2025 04:42 PM Reporting Lab: [facility] [place] [address] [address] Performing Lab: [facility] [address] [facility] URINALYS IS CLEAN CATCH SPECIFIC GRAVITY OF URINE BY REFRACTOME TRY 1.025 1.016 - 1.022 01/27 H Specimen Type: URINE Comment: If Glucose = >500 and Ketones are positive, please alert the Physician. Ordering Provider: GORDON CHILDS Report Released Date/Time: Jan 18, 2025 04:42 PM Reporting Lab: [facility] [address] Performing Lab: [facility] [address] [facility] URINALYS IS CLEAN CATCH PH OF URINE BY TEST STRIP 6.0 5.0 - 9.0 01/27 Specimen Type: URINE Comment: If Glucose = >500 and Ketones are positive, please alert the Physician. Ordering Provider: GORDON CHILDS Report Released Date/Time: Jan 18, 2025 04:42 PM Reporting Lab: [facility] [address] [address] Performing Lab: [facility] [address] [facility] URINALYS IS CLEAN CATCH UROBILINOG EN [MASS/VOLU ME] IN URINE BY TEST STRIP Normalmg /dL <2.0 - 2.0 01/27 Specimen Type: URINE Comment: If Glucose = >500 and Ketones are positive, please alert the Physician. Ordering Provider: GORDON CHILDS Report Released Date/Time: Jan 18, 2025 04:42 PM Reporting Lab: [facility] [address] [facility] [address] Performing Lab: [facility] [address] [facility] [address] [facility] URINALYS IS CLEAN CATCH LEUKOCYTE ESTERASE [PRESENCE] IN URINE BY TEST STRIP NEGATIVE 01/27 Specimen Type: URINE Comment: If Glucose = >500 and Ketones are positive, please alert the Physician. Ordering Provider: GORDON CHILDS Report Released Date/Time: Jan 18, 2025 04:42 PM Reporting Lab: [facility] [address] [facility] [address] Performing Lab: [address] [address] [facility] VITAMIN D 25-OH (Therapy monitor) 25-HYDROXY VITAMIN D3 [MASS/VOLU ME] IN SERUM OR PLASMA 51 ng/mL 30 - 100 08/13 Specimen Type: SERUM Comment: Vitamin D, 25-Hydroxy reports concentrati ons of two common forms, 25-OHD2 and 25-OHD3. 25-OHD3 indicates both endogenous production and supplementa tion. 25-OHD2 is an indicator of exogenous sources such as diet or supplementa tion. Therapy is based on measurement of Total 25-OHD, with levels <20 ng/mL indicative of Vitamin D deficiency, while levels between 20 ng/mL and 30 ng/mL suggest insufficien cy. Optimal levels are > or = 30 ng/mL. For additional information , please refer to http://educ ation.[employer] .com/faq/FA Q199 (This link is being provided for information al/ educational purposes only.) This test was developed and its analytical performance characteris tics have been determined by [employer] [place], [place]. It has not been cleared or approved by the U.S. Food and Drug Administrat [employer]. This assay has been validated pursuant to the CLIA regulations and is used for clinical purposes. This test was developed and its analytical performance characteris tics have been determined by [place]. It has not been cleared or approved by the U.S. Food and Drug Administrat ion. This assay has been validated pursuant to the CLIA regulations and is used for clinical purposes. Test Performed by [employer], [employer] [place], [address] [place], [place] Jacob Connor M.D., Ph.D., Director of Laboratorie s , CLIA [id number] TEST PERFORMED AT: , Ordering Provider: GORDON CHILDS Report Released Date/Time: Jul 20, 2024 04:28 PM Reporting Lab: [facility] [address] [facility] [address] Performing Lab: [facility] [address] [address] [facility] VITAMIN D 25-OH (Therapy monitor) 25-HYDROXY VITAMIN D3 [MASS/VOLU ME] IN SERUM OR PLASMA 51 ng/mL 08/13 Specimen Type: SERUM Comment: Vitamin D, 25-Hydroxy reports concentrati ons of two common forms, 25-OHD2 and 25-OHD3. 25-OHD3 indicates both endogenous production and supplementa tion. 25-OHD2 is an indicator of exogenous sources such as diet or supplementa tion. Therapy is based on measurement of Total 25-OHD, with levels <20 ng/mL indicative of Vitamin D deficiency, while levels between 20 ng/mL and 30 ng/mL suggest insufficien cy. Optimal levels are > or = 30 ng/mL. For additional information , please refer to http://educ ation.[employer]iame[employer] .com/faq/FA Q199 (This link is being provided for information al/ educational purposes only.) This test was developed and its analytical performance characteris tics have been determined by [place]. It has not been cleared or approved by the U.S. Food and Drug Administrat [employer]. This assay has been validated pursuant to the CLIA regulations and is used for clinical purposes. This test was developed and its analytical performance characteris tics have been determined by [place]. It has not been cleared or approved by the U.S. Food and Drug Administrat [employer]. This assay has been validated pursuant to the CLIA regulations and is used for clinical purposes. Test Performed by [facility], [employer] [place], [address] [place], [place] Jacob Connor M.D., Ph.D., Director of Laboratorie s , CLIA [id number] TEST PERFORMED AT: , Ordering Provider: GORDON CHILDS Report Released Date/Time: Jul 20, 2024 04:28 PM Reporting Lab: [facility] [address] [facility] [address] Performing Lab: [facility] [address] [address] [facility] VITAMIN D 25-OH (Therapy monitor) CALCIFEROL (VIT D2) [MASS/VOLU ME] IN SERUM OR PLASMA <4ng/mL 08/13 Specimen Type: SERUM Comment: Vitamin D, 25-Hydroxy reports concentrati ons of two common forms, 25-OHD2 and 25-OHD3. 25-OHD3 indicates both endogenous production and supplementa tion. 25-OHD2 is an indicator of exogenous sources such as diet or supplementa tion. Therapy is based on measurement of Total 25-OHD, with levels <20 ng/mL indicative of Vitamin D deficiency, while levels between 20 ng/mL and 30 ng/mL suggest insufficien cy. Optimal levels are > or = 30 ng/mL. For additional information , please refer to http://educ ation.[employer] .com/faq/FA Q199 (This link is being provided for information al/ educational purposes only.) This test was developed and its analytical performance characteris tics have been determined by [place]. It has not been cleared or approved by the U.S. Food and Drug Administrat ion. This assay has been validated pursuant to the CLIA regulations and is used for clinical purposes. This test was developed and its analytical performance characteris tics have been determined by [place]. It has not been cleared or approved by the U.S. Food and Drug Administrat ion. This assay has been validated pursuant to the CLIA regulations and is used for clinical purposes. Test Performed by [employer], [employer] [facility], [address] [place] [address], [place], [place] Jacob Connor M.D., Ph.D., Director of Laboratorie s , CLIA [id number] TEST PERFORMED AT: , Ordering Provider: GORDON CHILDS Report Released Date/Time: Jul 20, 2024 04:28 PM Reporting Lab: [facility] [place] [facility] [address] [facility] [address] Performing Lab: [facility] [place] [facility] [address] [address] [facility] [place] [facility] Vital Signs Combined list of inpatient and outpatient Vital Signs from Department of Defense and Veterans Affairs, ranging from 12 months to all on record, depending upon the facility. Vital Sign Value Date Comments Source SYSTOLIC BLOOD PRESSURE 134 01/28/20 25 08:56:05 [facility] [place] [facility] DIASTOLIC BLOOD PRESSURE 82 025 08:56:05 [facility] [place] [facility] PULSE OXIMETRY 100 01/27/2025 08:56:05 [facility] [place] [facility] WEIGHT 194 01/27/2025 08:56:05 [facility] [place] [facility] BMI 29 kg/m2 01/27/2025 08:56:05 [facility] [place] [facility] PAIN 0 01/27/2025 08:56:05 [facility] [place] [facility] HEIGHT 69 01/27/2025 08:56:05 [facility] [place] [facility] TEMPERATURE 97.5 01/27/2025 08:56:05 [facility] [place] [facility] PULSE 61 01/27/2025 08:56:05 [facility] [place] [facility] RESPIRATION 16 01/27/2025 08:56:05 [facility] [place] [facility] SYSTOLIC BLOOD PRESSURE 149 08/02/20 24 10:52:07 [facility] [place] [facility] DIASTOLIC BLOOD PRESSURE 76 024 10:52:07 [facility] [place] [facility] PULSE OXIMETRY 98 08/02/2024 10:52:07 [facility] [place] [facility] WEIGHT 190 08/02/2024 10:52:07 [facility] [facility] BMI 28 kg/m2 08/02/2024 10:52:07 [facility] [place] [facility] PAIN 0 08/02/2024 10:52:07 [facility] [facility] HEIGHT 69 08/02/2024 10:52:07 [facility] [facility] TEMPERATURE 98.1 08/02/2024 10:52:07 [facility] [place] [facility] PULSE 57 08/02/2024 10:52:07 [facility] [place] [facility] RESPIRATION 16 08/02/2024 10:52:07 [facility] [place] [facility] Encounters Combined list of: 1) Encounters from Department of Veterans Affairs facilities going backup to the last 18 months, not all VA inpatient encounters are included; 2) Encounters from the Department of Defense facilities going backup to 280 months. Location Location Details Encounter Type Encounter Number Reason For Visit Attending Provider ADM Date DC Date Status Disposition Source [facility] Encounter [id number] D 10/08 [facility] Encounter [id number] 10/24 [facility] OFFICE O/P EST SF 10 MIN [id number] Diagnos is: ICD-10- CM 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 AZEB CHILDS RD D 10/30 [facility] OFF[facility]P EST MOD 30 MIN [id number] Diagnos is: ICD-10- CM M54.16 Radicul opathy, lumbar region ADITHYA VARGAS IEL Y 10/30 [facility] Encounter [id number] 11/03 [facility] [id number] 11/03 [facility] En[facility] [id number] D 11/03 [facility] En[facility] [id number] D 11/03 [facility] En[facility] [id number] 11/08 [facility] [id number] 11/15 [facility] OFFICE O/P EST SF 10 MIN [id number] Diagnos is: ICD-10- CM 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 hic neuropa thy, unspeci fiAZEB Byers RD D 11/17 [facility] THERAPEUTI C EXERCISES [id number] Diagnos is: ICD-10- CM M54.50 Low back pain, unspeci fiJALEN Franklin 12/20 [facility] Out[facility]counter [id number] 12/28 [facility] [id number] 12/30 [facility]counter [id number] 01/10 [facility] [id number] 01/18 [facility] [id number] 01/21 [facility] [id number] 01/31 [facility] COMPRE OPH EXAM EST PT 1/ [id number] Diagnos is: ICD-10- CM H25.813 Combine d forms of age-rel ated catarac t, bilater al EDITH YOUSIF 02/01 [facility] FIT SPECTACLES MULTIFOCAL [id number] Diagnos is: ICD-10- CM Z46.0 Encount er for fit/adj st of spectac les and contact lenses EDITH YOUSIF 02/01 [facility] OFFICE O/P EST LOW 20 MIN [id number] Diagnos is: ICD-10- CM M54.50 Low back pain, unspeci fied AZEB CHILDS RD 02/01 [facility] RPR&REFITG SPECT XCP APHAKIA [id number] Diagnos is: ICD-10- CM Z46.0 Encount er for fit/adj st of spectac les and contact lenses JOSHUA NEWELL A 02/13 [facility] Outpatient Encounter [id number] 03/04 [facility] Out[facility]counter [id number] 03/14 [facility] Out[facility]counter [id number] D 03/31 [facility] Out[facility]counter [id number] D 06/09 [facility] Out[facility] Encounter [id number] 07/22 [facility]counter [id number] 07/26 [facility] Out[facility] Encounter [id number] 08/01 [facility] OFFICE O/P EST LOW 20 MIN [id number] Diagnos is: ICD-10- CM I10 Essenti al (primar y) hyperte nsion AZEB CHILDS RD D 08/02 [facility] Out[facility] Encounter [id number] D 08/06 [facility]counter [id number] 1.08/15 [facility]counter [id number] 1.08/28 [facility]counter [id number] D 09/17 [facility] Out[facility]counter [id number] D 09/18 [facility] Out[facility]counter [id number] 10/16 [facility] Out[facility] Encounter [id number] 11/04 [facility] Out[facility]counter [id number] D 11/05 [facility]counter [id number] 11/14 [facility] Out[facility]counter [id number] D 01/08 [facility] Out[facility]counter [id number] 01/20 [facility] OFFICE O/P EST LOW 20 MIN [id number] Diagnos is: ICD-10- CM 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, unspeci fied AZEB CHILDS RD D 01/27 [facility] Outpatient [facility]counter [id number] D 01/27 [facility] COMPRE OPH EXAM EST PT 1/ [id number] Diagnos is: ICD-10- CM H25.813 Combine d forms of age-rel ated catarac t, bilater al BORASKI,AN MICHAEL E 02/05 [facility] Outpatient Encounter [id number] 02/05 [facility] Social History Combined list of available smoking, tobacco, and other social history from [facility] of Defense and [facility] facilities. Social History Type Response Date Comment Source Tobacco smoking status [facility] VA-TOBACCO NEVER USED 08/02/2024 [facility] History [facility] tobacco use VA-TOBACCO FORMER USER 05/01/2023 [facility] History of tobacco use VA-TOBACCO FORMER USER 05/13/2022 [facility] History of tobacco use VA-TOBACCO NEVER USED 05/24/2021 [facility] History of tobacco use VA-TOBACCO FORMER USER 06/23/2020 [facility] History of tobacco use VA-TOBACCO NEVER USED 09/18/2018 [facility] History of tobacco use LIFETIME NON-TOBACCO USER 03/26/2018 [facility] History of tobacco use LIFETIME NON-TOBACCO USER 06/17/2016 [facility] History of tobacco use QUIT TOBACCO USE > 7 YEARS AGO 03/03/2011 quit 20 years ago [facility] Plan of Care List of future care activities [facility]. Additional future care activities may be listed in the Assessment and Plan section. Date/Time Care Activity Care Activity Detail Facili ty 02/06/2025 AMBULATORY - MEDICINE AMBULATORY - MEDICI NE [facility]
--- OUTSIDE RECORDS SUMMARY | 2025-02-06 12:33 | XMS_ITS | Encounter Summary ---
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 Date/Time Encounter Type Encounter Description Reason Provider Source Aug 02, 2024 11:00 AM OFFICE O/P EST LOW 20 MIN PRIMARY CARE/MEDICINE ICD-10-CM I10 Essential (primary) hypertension SINGH ALVAREZ [facility] Encounter Template Text not used by NH Assessments - Encounter Diagnoses This section includes the primary and secondary diagnoses documented for the Encounter. Date/Time Primary/Secondary Diagnosis Diagnosis Name Provider Source Aug 02, 2024 12:17 PM PRIMARY Essential (primary) hypertension SINGH ALVAREZ [facility] Aug 02, 2024 12:17 PM SECONDARY Encounter for immunization ETHAN CLARK [facility] Plan of Treatment: Future Appointments (+ 6 months) and Future Tests (+/- 45 days) The Plan of Treatment section includes future care activities for the patient from all [place] treatmentfacilities. This section includes future appointments and future orders which are active, pending or scheduled. Future Appointments This section includes appointments that were scheduled to occur 6 months from the date of the Encounter, up to a maximum of 20 appointments. The data comes from all [place] treatment facilities. Appointment Date/Time Appointment Type Appointme nt Facility Name Nov 04, 2024 09:10 AM AMBULATORY - [facility] Jan 27, 2025 09:00 AM [facility]BULATORY [facility] Lab Results: +/- 30 days of the encounter This section includes the Chemistry and Hematology Lab Results on record with NH for the patient. Radiology Reports and Pathology Reports are provided separately, in subsequent sections. Lab Results This section contains the Chemistry/Hematology Results that were resulted 30 days before or 30 daysafter the date of the Encounter. Date/Time Source Result Type Result - Unit Interpretation Reference Range Specimen Type Comment Aug 13, 2024 10:02 AM [facility] VITAMIN D 25-OH (Therapy monitor) SERUM Speci men Type: SERUM Comment: Vitamin D, 25-Hydroxy reports concentrations of two common forms, 25-OHD2 and 25-OHD3. 25-OHD3 indicates both endogenous production and supplementation. 25-OHD2 is an indicator of exogenous sources such as diet or supplementation. Therapy is based on measurement of Total 25-OHD, with levels <20 ng/mL indicative of Vitamin D deficiency, while levels between 20 ng/mL and 30 ng/mL suggest insufficiency. Optimal levels are > or = 30 ng/mL. For additional information, please refer to http://education. [email or web address]/faq/EAP979 (This link is being provided for informational/ educational purposes only.) This test was developed and its analytical performance characteristics have been determined by [employer] [place], [place]. It has not been cleared or approved by the U.S. Food and Drug Administration. This assay has been validated pursuant to the CLIA regulations and is used for clinical purposes. This test was developed and its analytical performance characteristics have been determined by [employer] [place], [place]. It has not been cleared or approved by the U.S. Food and Drug Administration. This assay has been validated pursuant to the CLIA regulations and is used for clinical purposes. Test Performed by [facility], [employer] [facility], [address] [place] [address] Jacob Connor M.D., Ph.D., Director of Laboratories , CLIA [id number] TEST PERFORMED AT: , Ordering Provider: SINGH ALVAREZ Report Released Date/Time: Jul 20, 2024 04:28 PM Reporting Lab: [address] [address] Performing Lab: [place] [id number] [address] [address] VITAMIN D, 25-OH, TOTAL 51 ng/mL 30-100 VITAMIN D, 25-OH, D3 51 ng/mL VITAMIN D, 25-OH, D2 <4 ng/mL Aug 13, 2024 10:02 AM [facility] BASIC METABOLIC PANEL (fasting) SERUM Specime n Type: SERUM No comment entered. Ordering Provider: SINGH ALVAREZ Report Released Date/Time: Jul 20, 2024 04:28 PM Reporting Lab: [address] [address] Performing Lab: [address] [address] UREA NITROGEN 14 mg/dL 7-25 GLUCOSE 110 mg/dL H 65-100 SODIUM 139 mmol/L 135-145 POTASSIUM 3.8 mmol/L 3.5-5.0 CHLORIDE 104 mmol/L 100-110 CO2 23 meq/L 20-30 CREATININE, Serum 0.87 mg/dL 0.50-1.40 eGFR(CKD-EPI 2020) >90 mL/min >60 Aug 13, 2024 10:02 AM [facility] TSH SERUM Specimen Type: SERUM No comment entered. Ordering Provider: SINGH ALVAREZ Report Released Date/Time: Jul 20, 2024 04:28 PM Reporting Lab: [facility] [address] [facility] [address] Performing Lab: [address] [address] TSH 1.96 u[IU]/mL 0.35-5.00 Aug 13, 2024 10:02 AM [facility] LIVER FUNCTION SERUM Specimen Type: SERUM No comment entered. Ordering Provider: SINGH ALVAREZ Report Released Date/Time: Jul 20, 2024 04:28 PM Reporting Lab: [address] [address] Performing Lab: [address] [address] PROTEIN,TOTAL 7.1 g/dL 6.0-8.3 ALBUMIN 4.3 g/dL 3.5-5.0 ALKALINE PHOSPHATASE 91 U/L 40-150 AST 19 U/L 5-34 ALT 25 U/L BILIRUBIN, TOTAL 0.7 mg/dL 0.2-1.2 Aug 13, 2024 10:02 AM [facility] LIPID PANEL FASTING SERUM Specimen Type: SERU M No comment entered. Ordering Provider: SINGH ALVAREZ Report Released Date/Time: Jul 20, 2024 04:28 PM Reporting Lab: [address] [address] Performing Lab: [address] [address] CHOLESTEROL 263 mg/dL H TRIGLYCERIDE 224 mg/dL H 0-150 LDL calculated 165 mg/dL H 0-129 CHOL/HDL 5.0 HDL CHOLESTEROL 53 mg/dL 40-60 Aug 13, 2024 10:02 AM [facility] PSA SERUM Specimen Type: SERUM No comment entered. Ordering Provider: SINGH ALVAREZ Report Released Date/Time: Jul 20, 2024 04:28 PM Reporting Lab: [address] [place] [address] Performing Lab: [facility] [address] [facility] [address] PSA 1.64 ng/mL 0.00-4.00 Aug 13, 2024 10:02 AM [facility] CBC AND DIFF (AUTO) BLOOD Specimen Type: BLOO D No comment entered. Ordering Provider: SINGH ALVAREZ Report Released Date/Time: Jul 20, 2024 04:28 PM Reporting Lab: [facility] [address] [facility] [address] Performing Lab: [facility] [address] [facility] [address] WBC 3.83 10*3/uL L 4.50-11.00 RBC 4.68 10*6/uL 4.23-5.66 HGB 14.7 g/dL 12.8-17 HCT 41.9 39.2-50.4 MCV 89.5 fL 82-99 MCHC 35.1 g/dL 30.8-35.1 PLT 175 10*3/uL 140-360 RDW-CV 11.9 L 12.0-16.0 MONO, ABS 0.46 10*3/uL 0.30-1.10 MCH 31.4 pg 26.2-32.6 NEUT % 59.8 43.7-75.8 LYMPH % 23.0 14.0-42.3 MONO % 12.0 5.1-13.7 EOS % 4.2 0.4-6.8 BASO % 0.5 0.1-2.0 NEUT, ABS 2.29 10*3/uL 2.20-7.60 LYMPH, ABS 0.88 10*3/uL L 1.00-3.20 EOS, ABS 0.16 10*3/uL 0.03-0.44 BASO, ABS 0.02 10*3/uL 0.01-0.13 IMMATURE GRAN % 0.5 0.0-0.7 IMMATURE GRAN, ABS 0.02 10*3/uL 0.00-0.0 6 NRBC % 0.0 0.0-0.0 NRBC, ABS 0.00 10*3/uL 0.00-0.00 Aug 13, 2024 10:02 AM [facility] CALCIUM SERUM Specimen Type: SERUM No comment entered. Ordering Provider: SINGH ALVAREZ Report Released Date/Time: Jul 20, 2024 04:28 PM Reporting Lab: [facility] [address] [facility] [address] Performing Lab: [facility] [address] [facility] [address] CALCIUM 9.0 mg/dL 8.5-10.2 Aug 13, 2024 10:02 AM [facility] URINALYSIS CLEAN CATCH URINE Specimen Type: U RINE Comment: If Glucose = >500 and Ketones are positive, please alert the Physician. Ordering Provider: SINGH ALVAREZ Report Released Date/Time: Jul 20, 2024 04:28 PM Reporting Lab: [address] [address] Performing Lab: [address] [address] UA COLOR Light-Yellow Yellow UA APPEARANCE Clear Clear UA GLUCOSE Normal mg/dL Negative UA KETONES NEGATIVE mg/dL Negative UA BLOOD NEGATIVE mg/dL Negative UA PROTEIN NEGATIVE mg/dL Negative UA NITRITE NEGATIVE mg/dL Negative UA BILIRUBIN NEGATIVE mg/dL Negative UA SPECIFIC GRAVITY 1.018 1.016-1.022 UA pH 6.0 5.0-9.0 UA UROBILINOGEN Normal mg/dL <2.0 UA LEUKOCYTE NEGATIVE Negative Vital Signs: All taken on the encounter date This section contains inpatient and outpatient Vital Signs collected on the date of the Encounter. Date/Time Temperature Pulse Blood Pressure Respiratory Rate SP02 Pain Height Weight Body Mass Index Source Aug 02, 2024 12:13 PM 132/[facility] Aug 02, 2024 10:52 AM 98.1 57 149/76 16 98 0 69 190 28 [facility] Immunizations: All administered on the encounter date This section contains immunizations associated to the Encounter. Immunization Series Date Issued Administered By Site Reaction Lot Number CVX Code Drug Inspector Filter Tip Comment(s) Source INFLUENZA, SPLIT VIRUS, TRIVALENT, PF Aug 02, 2024 ETHAN CLARK Rac[place] ID [id number] [place] Completed Series, ADMINISTERE D AT NH, [facility] [place] [facility] Social History: Smoking Status (Most current) and Tobacco Use (All prior to encounter date) This section includes the most current, and the historical, smoking and tobacco- related health factors from the NH facility where the Encounter took place. Current Smoking Status This section includes the most current smoking, or tobacco-related health factor, from the NH facility where the Encounter took place. Date/Time Current Smoking Status Comment Facil it Aug 02, 2024 11:00 AM VA-TOBACCO NEVER USED [place] [facility] [place] [facility] Tobacco Use History This section includes a history of the smoking, or tobacco-related health factors, that were collected on or before the date of the Encounter. The data comes from the [place] facility where the Encounter took place. Date/Time Smoking Status/Tobac co Use Comment Facility May 01, 2023 11:30 AM VA-TOBACCO FORMER USER [facility] [place] [facility] May 01, 2023 11:30 AM VA-TOBACCO QUIT 15 YRS OR MORE [facility] [place] [facility] May 13, 2022 08:30 AM VA-TOBACCO FORMER USER [facility] [place] [facility] May 13, 2022 08:30 AM VA-TOBACCO QUIT 15 YRS OR MORE [facility] [place] [facility] May 24, 2021 03:30 PM VA-TOBACCO NEVER USED [facility] [place] [facility] Jun 23, 2020 09:30 AM VA-TOBACCO FORMER USER [facility] [place] [facility] Jun 23, 2020 09:30 AM VA-TOBACCO QUIT 15 YRS OR MORE [facility] [place] [facility] Sep 18, 2018 09:48 AM VA-TOBACCO NEVER USED [facility] [place] [facility] Mar 26, 2018 10:01 AM LIFETIME NON-TOBACCO USER [facility] [place] [facility] Jun 17, 2016 09:41 AM LIFETIME NON-TOBACCO USER [facility] [place] [facility] Mar 03, 2011 11:19 AM QUIT TOBACCO USE > 7 YEARS AGO quit 20 years ago [facility] [place] [facility] Encounter Notes: All associated encounter notes This section contains the clinical notes associated to the Encounter. Date/Time Encounter Note(s) Provider Source Aug 02, 2024 12:14 PM PHYSICIAN NOTE: LOCAL TITLE: MD NOTE STANDARD TITLE: PHYSICIAN NOTE DATE OF NOTE: AUG 02, 2024@12:14 ENTRY DATE: AUG 02, 2024@12:14:08 AUTHOR: SINGH ALVAREZ EXP COSIGNER: URGENCY: STATUS: COMPLETED Patient Name: HARRIETT RENEE VITALS: Patient temperature: 98.1 F [36.7 C] (08/02/2024 10:52) Blood pressure: 132/66 (08/02/2024 12:13) Patient height: 69 in [175.3 cm] (08/02/2024 10:52) Patient weight: 190 lb [86.18 kg] (08/02/2024 10:52) Patient BMI: BMI: 28.1 Patient pulse: 57 (08/02/2024 10:52) Patient respiration: 16 (08/02/2024 10:52) Patient Pulse Oximetry: 98% (08/02/2024 10:52) Pain Ratin (08/02/2024 10:52) Active [facility] Medications: Active Outpatient Medications (including Supplies): Active Outpatient Medications Status 1) AMLODIPINE BESYLATE 2.5MG TAB TAKE ONE TABLET BY ACTIVE MOUTH ONCE DAILY FOR BLOOD PRESSURE/HEART, DO NOT TAKE WITH GRAPEFRUIT JUICE 2) CALCIUM CARBONATE 650MG (CA 260MG) TAB TAKE ONE ACTIVE TABLET BY MOUTH TWICE DAILY FOR CALCIUM SUPPLEMENT 3) CHOLECALCIF 25MCG (D3-1,000UNIT) TAB TAKE ONE TABLET ACTIVE BY MOUTH ONCE DAILY FOR VITAMIN SUPPLEMENTATION 4) EZETIMIBE 10MG TAB TAKE ONE TABLET BY MOUTH ONCE ACTIVE DAILY TO LOWER CHOLESTEROL Remote Medications: No Active Remote Medications for this patient manager bilingual note chief complaint: Hypertension History of present illness Patient takes amlodipine 2.5 mg daily for hypertension. He feels well today with no complaints. He takes all medication regularly. He stays active with activities. Review of systems No chest pain or dyspnea No abdominal pain No trouble urinating No fever or chills No cough Physical examination: Well developed well nourished in no apparent distress Vitals as above Heart: rrr, no m/r/g Lungs: clear to ausculatation Abdomen: soft, +bs, nontender, nondistended, no masses or guarding Extremities: no edema, no cyanosis or clubbing Neurologic: alert, normal gait, normal senory and motor, EOMI, PERRLA, conjunctiva and sclera normal Psychiatric: answers questions appropriately, normal/coherent speech HEENT: mucious membranes moist Ears and pharynx: no erythema, tympanic membranes normal Neck: supple Urogenital: normal external male, no masses Skin: warm, dry, no lesions Assessment and plan: 1. Hypertension: Blood pressure satisfactory plan continue present medication Fasting labs this month Follow-up 6 months clinic visit and lab Medication Reconciliation: Outpatient: Has the patient been taking medications as documented in the EMLR? YES: The patient has been taking medications as documented in the EMLR. Essential Medication List for Review used to complete this medication reconciliation. INCLUDED IN THIS LIST: Alphabetical list of active outpatient prescriptions dispensed from this [facility] (local) and dispensed from another [facility] or [facility] facility (remote) as well as inpatient orders [...] whether with a VA or non-VA provider. COVID-19 Immunization: Refused Moderna Monovalent COVID-19 vaccine Immunization: COVID-19 (MODERNA), MRNA, LNP-S, PF, 50 MCG/0.5 ML (AGES 12+ YEARS) Refusal Reason: PATIENT DECISION Patient refuses all immunization(s) in the COVID-19 group Date Documented: 08/02/24 12:16 /es/ Singh Alvarez MD Staff Physician Signed: 08/02/2024 12:17 SINGH ALVAREZ [facility] Aug 02, 2024 10:55 AM PREVENTIVE MEDICINE NURSING NOTE: LOCAL TITLE: CLINICAL REMINDERS/NURSING STANDARD TITLE: PREVENTIVE MEDICINE NURSING NOTE DATE OF NOTE: AUG 02, 2024@10:55 ENTRY DATE: AUG 02, 2024@10:55:43 AUTHOR: BLANKA CLARK COSIGNER: URGENCY: STATUS: COMPLETED CLINICAL REMINDERS/NURSING Has ADDENDA Tobacco Use Screening: The patient has never used tobacco. Alcohol Use Screen (AUDIT-C): Alcohol Screen: SCREEN FOR ALCOHOL (AUDIT-C) An alcohol screening test (AUDIT-C) was negative (score=2). 1. How often did you have a drink containing alcohol in the past year? Consider a drink to be a 12 ounce can or bottle of regular beer, 8 ounces of malt liquor, a 5 ounce glass of table wine, or a 1.5 ounce shot of liquor (like scotch, gin, or vodka). Two to four times a month 2. How many drinks containing alcohol did you have on a typical day when you were drinking in the past year? One or two drinks 3. How often did you have six or more drinks on one occasion in the past year? Never Sexual Orientation: The patient thinks of their sexual orientation as: Straight or Heterosexual Homelessness/Food Insecurity Screen: In the past 2 months, have you been living in stable housing that you own, rent, or stay in as part of a household? Yes - Living in stable housing. Are you worried or concerned that in the next 2 months you may NOT have stable housing that you own, rent, or stay in as part of a household? No - Not worried about housing near future [facility] reports the following: Within the past 12 months, you worried whether your food would run out before you got money to buy more. Never true Within the past 12 months, the food you bought just didn't last and you didn't have money to get more. Never true Depression Screening: Perform PHQ-2 A PHQ-2 screen was performed. The score was 0 which is a negative screen for depression. Over the past two weeks, how often have you been bothered by the following problems? 1. Little interest or pleasure in doing things Not at all 2. Feeling down, depressed, or hopeless Not at all Suicide Screen: C-SSRS Screening [place] Suicide Severity Rating Scale (C-SSRS) screener 1. Over the past month, have you wished you were or wished you could go to sleep and not wake up? No 2. Over the past month, have you had any actual thoughts of killing yourself? No 3. Over the past month, have you been thinking about how you might do this? Response not required due to responses to other questions. 4. Over the past month, have you had these thoughts and had some intention of acting on them? Response not required due to responses to other questions. 5. Over the past month, have you started to work out or worked out the details of how to kill yourself? Response not required due to responses to other questions. 6. If yes, at any time in the past month did you intend to carry out this plan? Response not required due to responses to other questions. 7. In your lifetime, have you ever done anything, started to do anything, or prepared to do anything to end your life (for example, collected pills, obtained a gun, gave away valuables, went to the roof but didn't jump)? No 8. If YES, was this within the past 3 months? Response not required due to responses to other questions. (Optional) Whole Health Documentation: What matters the most to you? What motivates you to be healthy? (MAP) Response: survived cancer Advance Directive Screen MH AD: Patient has an up-to-date Advance Directive at an outside, non-va facility and was asked to forward a copy to his/her clinician. Comment: was given the paperwork to return upon completion /sohail/ BLANKA CLARK LPN LPN Signed: 08/02/2024 11:04 08/02/2024 ADDENDUM STATUS: COMPLETED Influenza Immunization: Influenza, Trivalent, Preservative Free (Fluarix-Syringe) Administered: INFLUENZA, SPLIT VIRUS, TRIVALENT, PF Date Administered: Aug 02, 2024 11:00 Series: Complete Inspector Filter Tip: SmartK[employer] Lot: [id number] Exp Date: Mar 31, 2025 [facility]: [id number] Admin Route/Site: INTRAMUSCULAR/LEFT DELTOID Dosage: 0.5mL Vaccine Information Statement(s): INFLUENZA(FLU) VACC(INACTIVATED OR RECOMBINANT)VIS May 07, 2021 (KINYARWANDA) Order By: Policy Administered By: Blanka Clark The Influenza Vaccine Information Statement (VIS) was reviewed with the patient/caregiver which lists the benefits and risks of the vaccine and the risks of not receiving the Influenza vaccine. The patient/caregiver denied any prior severe reaction to this vaccine or its components or a severe allergic reaction, such as anaphylaxis, to any vaccine or any injectable therapy. The patient/caregiver gave verbal consent to receive the vaccine. /sohail/ BLANKA CLARK LPN LPN Signed: 08/02/2024 11:48 BLANKA CLARK [facility]
== END 2025-02-06 11:17 | disposition home or self-care (01) ==
LOC: HO.HGS 11:02
PROVIDERS: PCP Internal Medicine; Visit Provider Surgery
DX: K62.0 Anal polyp (principal)
CPT/HCPCS: 46600; 99213

== ENCOUNTER → 2025-02-06 11:01 | Outpatient (BNVA) | payer OTHER, SELFPAY | PROVIDERS: PCP Internal Medicine; Visit Provider Surgery | DX: K62.0 Anal polyp (principal) | CPT/HCPCS: 46600; 99212 ==

== ENCOUNTER 2025-02-21 11:19 | Day surgery (SDC) | payer OTHER, SELFPAY ==
--- OUTSIDE RECORDS SUMMARY | 2025-02-17 14:48 | XMS_ITS | Encounter Summary ---
Author Name [facility] [place] [facility] [place] Address [address] [place] [id number] Care Team Providers [place] Superintendent Name Role Phone SINGH ALVAREZ Primary Care [...] Yarbrough's Name Patient's Relationship to Policy Yarbrough [facility] MEDICAID MEDICAID MEDIC AID Dec 05, 2017 MEDICAI D [id number] MONA RENEE PATIENT Selected Encounter This section includes the information on record at [place] for the Encounter. Date/Time Encounter Type Encounter Description Reason Pro vider Source February 13, 2025 09:36 AM Outpatient Encounter PRIMARY CARE/MEDICINE IHE Encounter Template Text not used by [...] 20 appointments. The data comes from all [place] treatment facilities. Appointment Date/Time Appointment Type Appointme nt Facility Name Jul 29, 2025 09:00 AM [facility] [place] [facility] [place] [facility] Active, Pending, and Scheduled Orders This section includes a listing of several types of active, pending, and scheduled orders, including clinic medications orders, diagnostic test orders, procedure orders and consult orders; where the start date of the order is 45 days before the date of the Encounter or 45 days after the date of theEncounter. The data comes from all [place] treatment facilities. Test Date/Time Test Type Test Details Facility Name Jan 08, 2025 06:25 PM Consult Order COMMUNITY CARE-ONCOLOGY Cons [employer] Installer's Choice [place] [facility] [place] [facility] Jan 27, 2025 09:33 AM Consult Order COMMUNITY CARE-GEN SURGERY [facility] [employer] Installer's [facility] Lab Results: +/- 30 days of the encounter This section includes the Chemistry and Hematology Lab Results on record with [place] for the patient. Radiology Reports and Pathology Reports are provided separately, in subsequent sections. Lab Results This section contains the Chemistry/Hematology Results that were resulted 30 days before or 30 daysafter the date of the Encounter. Date/Time Source Result Type Result - Unit Interpretation Reference Range Specimen Type Comment Jan 27, 2025 08:43 AM [place] [facility] TSH SERUM Specimen Type: SERUM No comment entered. Ordering Provider: SINGH ALVAREZ Report Released Date/Time: Jan 18, 2025 04:42 PM Reporting Lab: [place] [facility] [place] [facility] [address] [facility] [address] Performing Lab: [facility] [place] [address] [address] TSH 1.48 u[IU]/mL 0.35-4.94 Jan 27, 2025 08:43 AM [facility] LIVER FUNCTION SERUM Specimen Type: SERUM No comment entered. Ordering Provider: SINGH ALVAREZ Report Released Date/Time: Jan 18, 2025 04:42 PM Reporting Lab: [place] [facility] [address] [address] Performing Lab: [facility] [address] [facility] [address] PROTEIN,TOTAL 7.1 g/dL 6.4-8.3 ALBUMIN 4.7 g/dL H 3.2-4.6 ALKALINE PHOSPHATASE 65 U/L 40-150 AST 23 U/L 5-34 ALT 34 U/L 0-55 BILIRUBIN, TOTAL 0.8 mg/dL 0.2-1.2 Jan 27, 2025 08:43 AM [facility] LIPID PANEL FASTING SERUM Specimen Type: SERU M No comment entered. Ordering Provider: SINGH ALVAREZ Report Released Date/Time: Jan 18, 2025 04:42 PM Reporting Lab: [address] [address] Performing Lab: [facility] [address] CHOLESTEROL 255 mg/dL H TRIGLYCERIDE 211 mg/dL H 0-150 LDL calculated 163 mg/dL H 0-129 CHOL/HDL 5.1 HDL CHOLESTEROL 50 mg/dL >40 Jan 27, 2025 08:43 AM [facility] PSA SERUM Specimen Type: SERUM No comment entered. Ordering Provider: SINGH ALVAREZ Report Released Date/Time: Jan 18, 2025 04:42 PM Reporting Lab: [facility] [address] [facility] [address] Performing Lab: [facility] [address] PSA 1.8 ng/mL 0.0-4.0 Jan 27, 2025 08:43 AM [facility] BASIC METABOLIC PANEL (fasting) SERUM Specime n Type: SERUM No comment entered. Ordering Provider: SINGH ALVAREZ Report Released Date/Time: Jan 18, 2025 04:42 PM Reporting Lab: [facility] [address] [facility] [address] Performing Lab: [address] [address] UREA NITROGEN 19 mg/dL 8-26 GLUCOSE 108 mg/dL H 65-100 SODIUM 140 mmol/L 136-145 POTASSIUM 3.9 mmol/L 3.5-5.1 CHLORIDE 106 mmol/L 98-107 CO2 24 meq/L 23-31 CALCIUM 9.2 mg/dL 8.8-10 CREATININE, Serum 0.95 mg/dL 0.72-1.25 eGFR(CKD-EPI 2020) 89 mL/min >60 Jan 27, 2025 08:43 AM [facility] CALCIUM SERUM Specimen Type: SERUM No comment entered. Ordering Provider: SINGH ALVAREZ Report Released Date/Time: Jan 18, 2025 04:42 PM Reporting Lab: [address] [address] Performing Lab: [address] [address] CALCIUM 9.2 mg/dL 8.8-10 Jan 27, 2025 08:43 AM [facility] VITAMIN D (25-OH) SERUM Specimen Type: SERUM No comment entered. Ordering Provider: SINGH ALVAREZ Report Released Date/Time: Jan 18, 2025 04:42 PM Reporting Lab: [address] [address] Performing Lab: [address] [address] VITAMIN D (25-OH) 51.8 ng/mL H 20-50 Jan 27, 2025 08:43 AM [facility] CBC AND DIFF (AUTO) BLOOD Specimen Type: BLOO D No comment entered. Ordering Provider: SINGH ALVAREZ Report Released Date/Time: Jan 18, 2025 04:42 PM Reporting Lab: [address] [address] Performing Lab: [address] [address] WBC 4.33 10*3/uL L 4.50-11.00 RBC 4.92 [...] 10*3/uL 0.00-0.00 Jan 27, 2025 08:43 AM [facility] URINALYSIS CLEAN CATCH URINE Specimen Type: U RINE Comment: If Glucose = >500 and Ketones are positive, please alert the Physician. Ordering Provider: SINGH ALVAREZ Report Released Date/Time: Jan 18, 2025 04:42 PM Reporting Lab: [facility] [address] [facility] [address] Performing Lab: [address] [address] UA COLOR Light-Yellow Yellow UA APPEARANCE Clear [...] and tobacco- related health factors from the [place] facility where the Encounter took place. Current Smoking Status This section includes the most current smoking, or tobacco-related health factor, from the [place] facility where the Encounter took place. Date/Time Current Smoking Status Comment [facility] Aug 02, 2024 11:00 AM VA-TOBACCO NEVER USED [place] [facility] [facility] Tobacco Use History This section includes a history of the smoking, or tobacco-related health factors, that were collected on or before the date of the Encounter. The data comes from the [place] facility where the Encounter took place. Date/Time Smoking Status/Tobac co Use Comment [facility] May 01, 2023 11:30 AM [place]-TOBACCO FORMER USER [place] [facility] [place] [facility] May 01, 2023 11:30 AM VA-TOBACCO QUIT 15 YRS OR MORE [facility] [place] [facility] May 13, 2022 08:30 AM VA-TOBACCO FORMER USER [facility] [place] [facility] May 13, 2022 08:30 AM VA-TOBACCO QUIT 15 YRS OR MORE [facility] [place] [facility] May 24, 2021 03:30 PM VA-TOBACCO NEVER USED [facility] [place] [facility] Jun 23, 2020 09:30 AM VA-TOBACCO FORMER USER [facility] [place] [facility] Jun 23, 2020 09:30 AM VA-TOBACCO QUIT 15 YRS OR MORE [facility] [place] [facility] Sep 18, 2018 09:48 AM VA-TOBACCO NEVER USED [facility] [place] [facility] Mar 26, 2018 10:01 AM LIFETIME NON-TOBACCO USER [facility] [place] [facility] Jun 17, 2016 09:41 AM LIFETIME NON-TOBACCO USER [facility] [place] [facility] Mar 03, 2011 11:19 AM QUIT TOBACCO USE > 7 YEARS AGO quit 20 years ago [facility] [place] [facility] Encounter Notes: All associated encounter notes This section contains the clinical notes associated to the Encounter. Date/Time Encounter Note(s) Provider Source February 13, 2025 09:36 AM NONVA CONSULT: LOCAL TITLE: MD/OUTSIDE CONSULT REPORT SUMMARY STANDARD TITLE: NONVA CONSULT DATE OF NOTE: FEBRUARY 13, 2025@09:36 ENTRY DATE: FEBRUARY 13, 2025@09:36:43 AUTHOR: SINGH ALVAREZ EXP COSIGNER: URGENCY: STATUS: COMPLETED 02-03-[address] 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 Cabezas Follow-up oncology 3 months /sohail/ Singh Alvarez MD Staff Physician Signed: 02/13/2025 09:37 SINGH ALVAREZ [place] [facility]
--- OUTSIDE RECORDS SUMMARY | 2025-02-17 14:48 | XMS_ITS | Continuity of Care Document ---
Author Name [facility] Organization [facility] Care Team Providers Care Screed Operator Name Role Phone [facility] Unavailable Unavailable Problems Combined list of problems from Department of Defense and Veterans Affairs facilities. It does not include entries that were removed or entered in error. 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, 2024 Entered By: IVETH CHILDS Comment: Followed by private [facility] HTN - Hypertension (SCT [id number]) Active 022 Condition May 13, 2022 Entered By: IVETH CHILDS Comment: treated with medication [facility] Closed fracture of facial bone Active 021 Condition Jun 09, 2021 Entered By: IVETH CHILDS Comment: bilateral maxillary and nasal bones [facility] Headache (SCT [id number]) Active 021 Condition Nov 25, 2020 Entered By: IVETH CHILDS Comment: refer to neurology [facility] 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 [id number]) Active Condition Jan 09 4 Entered By: AIDEN GARDINER Comment: Entered automatically through [facility] Problem List documentation program [facility] Diagnosis: ICD-10-CM Z46.0 Encounter for fit/adjst of spectacles and contact lenses Active Diagnosis [facility] Diagnosis: ICD-10-CM H25.813 Combined forms of age-related cataract, bilateral Active Diagnosis [facility] Diagnosis: ICD-10-CM C21.0 Malignant neoplasm of anus, unspecified Active Diagnosis [facility] Diagnosis: ICD-10-CM I10 Essential (primary) hypertension Active Diagnosis [facility] Diagnosis: ICD-10-CM M54.50 Low back pain, unspecified Active Diagnosis [facility] Diagnosis: ICD-10-CM G60.9 Hereditary and idiopathic neuropathy, unspecified Active Diagnosis [facility] Diagnosis: ICD-10-CM M54.16 Radiculopathy, lumbar region Active Diagnosis [facility] Diagnosis: ICD-10-CM G60.3 Idiopathic progressive neuropathy Active Diagnosis [facility] Medications Combined list of outpatient medications [...] WITH GRAPEFRU IT JUICE ORAL ACTIVE 06/10/2025 [id number] 4 [facility] CHILDS 2023 90 [facility] AMLODIPINE BESYLATE 2.5MG TAB TAKE ONE TABLET BY MOUTH ONCE DAILY FOR BLOOD PRESSURE /HEART, DO NOT TAKE WITH GRAPEFRU IT JUICE ORAL DISCONT INUED 05/01/2024 [id number] 4 [facility] CHILDS D 2022 90 [facility] CALCIUM CARBONATE 650MG TAB TAKE ONE TABLET BY MOUTH TWICE DAILY FOR CALCIUM SUPPLEME NT ORAL ACTIVE 04/02/2025 [id number] 5 [facility] CHILDS D 2023 200 [facility] CHOLECALCIF SMILEY 25MCG (1,000UNIT) TAB TAKE ONE TABLET BY MOUTH ONCE DAILY FOR VITAMIN SUPPLEME NTATION ORAL ACTIVE 04/02/2025 [id number] 5 [facility] CHILDS JUANA D 2023 90 [facility] EZETIMIBE 10MG TAB TAKE ONE TABLET BY MOUTH ONCE DAILY TO LOWER CHOLESTE ROL ORAL ACTIVE 06/10/2025 [id number] 5 [facility] CHILDS D 2023 90 [facility] EZETIMIBE 10MG TAB TAKE ONE TABLET BY MOUTH ONCE DAILY TO LOWER CHOLESTE ROL ORAL DISCONT INUED 05/01/2024 [id number] 4 [facility] CHILDS D 2022 90 [facility] Allergies, Adverse Reactions, Alerts Combined list of allergies from Department of Defense and Veterans Affairs facilities. It does not include entries that were removed or entered in error. Substance Category Reaction Severity Reaction type Status Date Reported Comments Source NIACIN Propensity to adverse reactions to drug (finding) Flushing active 9 [facility] PRAVASTATIN Propensity to adverse reactions to drug (finding) Rhabdomyoly sis active 4 [facility] Immunizations Combined list of available immunizations from the Department of Defense and Veterans Affairs facilities. Immunization Series Date Given Administered By Site Reaction Lot Number CVX Code Drug Pediatrician Active Practice Status Comments Source INFLUENZA, SPLIT VIRUS, TRIVALENT, PF 2023 ETHAN CLARK LEFT DELTO ID [id number] 140 complet ed Completed Series, [facility] [place], [facility] INFLUENZA, INJECTABLE, QUADRIVALENT, PRESERVATIVE FREE 2023 CHELLE FLOWER LEFT DELTO ID [id number] 150 complet ed Completed Series, [facility] [place] [facility] [place] RSV, BIVALENT, PROTEIN SUBUNIT RSVPREF, DILUENT RECONSTITUTED , 0.5 ML, PF 2023 CHELLE FLOWER RIGHT DELTO ID [id number] 305 complet ed Completed Series, [facility] [place] INFLUENZA, INJECTABLE, [...] QUADRIVALENT 2018 158 complet ed 02, [email or web address] Administ[facility] red by: [facility] Clinician (NPI=Not Provided) . Partner 62 Lot#: [id number] Mfr: SEQIRUS [facility] [...] 2010 107 complet ed Site: Right Deltoid [facility] [place] [facility] Results Combined list of recent chemistry, [...] Jan 18, 2025 04:42 PM Reporting Lab: [facility] [place] [address] [address] Performing Lab: [facility] [place] [address] [address] [facility] [place] [facility] LIVER FUNCTION PROTEIN [MASS/VOLU ME] IN SERUM OR PLASMA 7.1 g/dL 6.4 - 8.3 01/27 Specimen Type: SERUM No comment entered. Ordering Provider: GORDON CHILDS Report Released Date/Time: Jan 18, 2025 04:42 PM Reporting Lab: [facility] [place] [facility] [address] [facility] [address] Performing Lab: [facility] [place] [address] [address] [facility] [place] [facility] LIVER FUNCTION ALBUMIN [MASS/VOLU ME] IN SERUM OR PLASMA BY BROMOCRESO L PURPLE (BCP) DYE BINDING METHOD 4.7 g/dL 3.2 - 4.6 01/27 H Specimen Type: SERUM No comment entered. Ordering Provider: GORDON CHILDS Report Released Date/Time: Jan 18, 2025 04:42 PM Reporting Lab: [facility] [place] [facility] [address] [facility] [address] Performing Lab: [facility] [place] [address] [address] [facility] [place] [facility] LIVER FUNCTION ALKALINE PHOSPHATAS E [ENZYMATIC ACTIVITY/V OLUME] IN SERUM OR PLASMA 65 U/L 40 - 150 01/27 Specimen Type: SERUM No comment entered. Ordering Provider: GORDON CHILDS Report Released Date/Time: Jan 18, 2025 04:42 PM Reporting Lab: [facility] [place] [address] [address] Performing Lab: [facility] [place] [address] [address] [facility] [place] [facility] LIVER FUNCTION ASPARTATE AMINOTRANS FERASE [ENZYMATIC ACTIVITY/V OLUME] IN SERUM OR PLASMA BY WITH P-5'-P 23 U/L 5 - 34 01/27 Specimen Type: SERUM No comment entered. Ordering Provider: GORDON CHILDS Report Released Date/Time: Jan 18, 2025 04:42 PM Reporting Lab: [facility] [place] [address] Performing Lab: [facility] [place] [address] [address] [facility] LIVER FUNCTION ALANINE AMINOTRANS FERASE [ENZYMATIC ACTIVITY/V OLUME] IN SERUM OR PLASMA BY WITH P-5'-P 34 U/L 0 - 55 01/27 Specimen Type: SERUM No comment entered. Ordering Provider: GORDON CHILDS Report Released Date/Time: Jan 18, 2025 04:42 PM Reporting Lab: [facility] [place] [address] Performing Lab: [facility] [place] [address] [address] [facility] LIVER FUNCTION BILIRUBIN. TOTAL [MASS/VOLU ME] IN SERUM OR PLASMA 0.8 mg/dL 0.2 - 1.2 01/27 Specimen Type: SERUM No comment entered. Ordering Provider: GORDON CHILDS Report Released Date/Time: Jan 18, 2025 04:42 PM Reporting Lab: [facility] [place] [address] Performing Lab: [facility] [place] [facility] [address] [facility] [address] [facility] [place] [facility] LIPID PANEL FASTING CHOLESTERO L [MASS/VOLU ME] IN SERUM OR PLASMA 255 mg/dL 01/27 H Specimen Type: SERUM No comment entered. Ordering Provider: GORDON CHILDS Report Released Date/Time: Jan 18, 2025 04:42 PM Reporting Lab: [facility] [place] [facility] [address] [facility] [address] Performing Lab: [facility] [place] [address] [address] [facility] [place] [facility] LIPID PANEL FASTING TRIGLYCERI DE [MASS/VOLU ME] IN SERUM OR PLASMA 211 mg/dL 0 - 150 01/27 H Specimen Type: SERUM No comment entered. Ordering Provider: GORDON CHILDS Report Released Date/Time: Jan 18, 2025 04:42 PM Reporting Lab: [facility] [place] [address] [address] Performing Lab: [facility] [place] [address] [address] [facility] [place] [facility] LIPID PANEL FASTING CHOLESTERO L IN LDL [MASS/VOLU ME] IN SERUM OR PLASMA BY CALCULATIO N 163 mg/dL 0 - 129 01/27 H Specimen Type: SERUM No comment entered. Ordering Provider: GORDON CHILDS Report Released Date/Time: Jan 18, 2025 04:42 PM Reporting Lab: [facility] [place] [address] [address] Performing Lab: [facility] [place] [address] [address] [facility] [place] [facility] LIPID PANEL FASTING CHOLESTERO L.TOTAL/CH OLESTEROL IN HDL [MASS RATIO] IN SERUM OR PLASMA 5.1 01/27 Specimen Type: SERUM No comment entered. Ordering Provider: GORDON CHILDS Report Released Date/Time: Jan 18, 2025 04:42 PM Reporting Lab: [facility] [place] [facility] [address] [facility] [address] Performing Lab: [facility] [place] [facility] [address] [facility] [address] [facility] [place] [facility] LIPID PANEL FASTING CHOLESTERO L IN HDL [MASS/VOLU ME] IN SERUM OR PLASMA 50 mg/dL 40 01/27 Specimen Type: SERUM No comment entered. Ordering Provider: GORDON CHILDS Report Released Date/Time: Jan 18, 2025 04:42 PM Reporting Lab: [facility] [place] [place] [facility] [address] [facility] [address] Performing Lab: [facility] [place] [facility] [address] [facility] [address] [facility] [place] [facility] PSA PROSTATE SPECIFIC AG [MASS/VOLU ME] IN SERUM OR PLASMA BY IMMUNOASSA Y 1.8 ng/mL 0.0 - 4.0 01/27 Specimen Type: SERUM No comment entered. Ordering Provider: GORDON CHILDS Report Released Date/Time: Jan 18, 2025 04:42 PM Reporting Lab: [facility] [place] [facility] [address] [facility] [address] Performing Lab: [facility] [place] [facility] [address] [facility] [address] [facility] BASIC METABOLI C PANEL (fasting ) UREA NITROGEN [MASS/VOLU ME] IN SERUM OR PLASMA 19 mg/dL 8 - 26 01/27 Specimen Type: SERUM No comment entered. Ordering Provider: GORDON CHILDS Report Released Date/Time: Jan 18, 2025 04:42 PM Reporting Lab: [facility] [place] [facility] [address] [facility] [address] Performing Lab: [facility] [place] [facility] [address] [facility] [address] [facility] [place] [facility] BASIC METABOLI C PANEL (fasting ) GLUCOSE [MASS/VOLU ME] IN SERUM OR PLASMA 108 mg/dL 65 - 100 01/27 H Specimen Type: SERUM No comment entered. Ordering Provider: GORDON CHILDS Report Released Date/Time: Jan 18, 2025 04:42 PM Reporting Lab: [facility] [place] [facility] [address] [facility] [address] Performing Lab: [facility] [place] [place] [facility] [address] [facility] [address] [facility] [place] [facility] BASIC METABOLI C PANEL (fasting ) SODIUM [MOLES/VOL UME] IN SERUM OR PLASMA 140 mmol/L 136 - 145 01/27 Specimen Type: SERUM No comment entered. Ordering Provider: GORDON CHILDS Report Released Date/Time: Jan 18, 2025 04:42 PM Reporting Lab: [facility] [place] [facility] [address] [facility] [address] Performing Lab: [facility] [place] [place] [address] [address] [facility] [place] [facility] BASIC METABOLI C PANEL (fasting ) POTASSIUM [MOLES/VOL UME] IN SERUM OR PLASMA 3.9 mmol/L 3.5 - 5.1 01/27 Specimen Type: SERUM No comment entered. Ordering Provider: GORDON CHILDS Report Released Date/Time: Jan 18, 2025 04:42 PM Reporting Lab: [facility] [place] [facility] [address] [facility] [address] Performing Lab: [facility] [place] [address] [address] [facility] [place] [facility] BASIC METABOLI C PANEL (fasting ) CHLORIDE [MOLES/VOL UME] IN SERUM OR PLASMA 106 mmol/L 98 - 107 01/27 Specimen Type: SERUM No comment entered. Ordering Provider: GORDON CHILDS Report Released Date/Time: Jan 18, 2025 04:42 PM Reporting Lab: [facility] [place] [facility] [address] [facility] [address] Performing Lab: [facility] [place] [facility] [address] [facility] [address] [facility] [place] [facility] BASIC METABOLI C PANEL (fasting ) CARBON DIOXIDE, TOTAL [MOLES/VOL UME] IN SERUM OR PLASMA 24 meq/L 23 - 31 01/27 Specimen Type: SERUM No comment entered. Ordering Provider: GORDON CHILDS Report Released Date/Time: Jan 18, 2025 04:42 PM Reporting Lab: [facility]ITALRENCOM[facility] DOTHANTRN [facility]ITALUSE[address] [address] Performing Lab: [facility]ITALRUSA [facility]ITALN [facility]ITALUSE[address] [address] [facility]OS[facility]ITALN [facility]ITALUSE [facility] BASIC METABOLI C PANEL (fasting ) CALCIUM [MASS/VOLU ME] IN SERUM OR PLASMA 9.2 mg/dL 8.8 - 10 01/27 Specimen Type: SERUM No comment entered. Ordering Provider: GORDON CHILDS Report Released Date/Time: Jan 18, 2025 04:42 PM Reporting Lab: [facility]ITALUSE[address] [address] Performing Lab: [facility]ITALRENCOM[facility]IL[facility] H[facility] DOTHANTRN [facility]ITALUSE[address] [address] [facility]OSPITALN [facility]ITALUSE [facility] BASIC METABOLI C PANEL (fasting ) CREATININE [MASS/VOLU ME] IN SERUM OR PLASMA 0.95 mg/dL 0.72 - 1.25 01/27 Specimen Type: SERUM No comment entered. Ordering Provider: GORDON CHILDS Report Released Date/Time: Jan 18, 2025 04:42 PM Reporting Lab: [facility]ITALRENCOM[facility]ABILIT[facility] HOSPITAL OF DOTHANTRN [place]SE[address] [address] Performing Lab: [facility]RL WSTRN [facility]ITALUSE[address] [address] [facility]ITALRUSA [facility]OSPITALN [place] [facility] BASIC METABOLI C PANEL (fasting ) GLOMERULAR FILTRATION RATE/1.73 SQ M.PREDICTE D [VOLUME RATE/AREA] IN SERUM, PLASMA OR BLOOD BY CREATININE -BASED FORMULA (CKD-EPI 2020) 89 mL/min 60 01/27 Specimen Type: SERUM No comment entered. Ordering Provider: GORDON CHILDS Report Released Date/Time: Jan 18, 2025 04:42 PM Reporting Lab: [facility] [place] [facility] [address] [facility] [address] Performing Lab: [facility] [place] [facility] [address] [facility] [address] [facility] [place] CALCIUM CALCIUM [MASS/VOLU ME] IN SERUM OR PLASMA 9.2 mg/dL 8.8 - 10 01/27 Specimen Type: SERUM No comment entered. Ordering Provider: GORDON CHILDS Report Released Date/Time: Jan 18, 2025 04:42 PM Reporting Lab: [facility] [place] [facility] [address] [facility] [address] Performing Lab: [facility]PITALUSETS [facility] [address] [facility] [address] [facility]RL TRN [facility]PITALUSE [facility] VITAMIN D (25-OH) 25-HYDROXY VITAMIN D3+25-HYDR OXYVITAMIN D2 [MASS/VOLU ME] IN SERUM OR PLASMA 51.8 ng/mL 20 - 50 01/27 H Specimen Type: SERUM No comment entered. Ordering Provider: GORDON CHILDS Report Released Date/Time: Jan 18, 2025 04:42 PM Reporting Lab: [facility]RL [facility]N [place] [facility] [address] [facility] [address] Performing Lab: [facility]ITALRL TRN [facility]OSPITALUSETS [facility] [address] [facility] [address] [facility]ITALRUSA [facility] HOSPITALN [facility]OSPITALUSE [facility] CBC AND DIFF (AUTO) LEUKOCYTES [#/VOLUME] IN BLOOD BY AUTOMATED COUNT 4.33 10*3/uL 4.50 - 11.00 01/27 L Specimen Type: BLOOD No comment entered. Ordering Provider: GORDON CHILDS Report Released Date/Time: Jan 18, 2025 04:42 PM Reporting Lab: [facility]RL [facility]N [place] [facility] [address] [facility] [address] Performing Lab: [facility]ITALRL WSTRN [facility]OSPITALUSETS [facility] [address] [facility] [address] [facility]ITALRL TRN [facility]PITALUSE [facility] CBC AND DIFF (AUTO) ERYTHROCYT ES [#/VOLUME] IN BLOOD BY AUTOMATED COUNT 4.92 10*6/uL 4.23 - 5.66 01/27 Specimen Type: BLOOD No comment entered. Ordering Provider: GORDON CHILDS Report Released Date/Time: Jan 18, 2025 04:42 PM Reporting Lab: [facility] [place] [facility] [address] [facility] [address] Performing Lab: [facility] [place] [facility] [address] [facility] [address] [facility] [place] [facility] CBC AND DIFF (AUTO) HEMOGLOBIN [MASS/VOLU ME] IN BLOOD 15.2 g/dL 12.8 - 17 01/27 Specimen Type: BLOOD No comment entered. Ordering Provider: GORDON CHILDS Report Released Date/Time: Jan 18, 2025 04:42 PM Reporting Lab: [facility] [place] [facility] [address] [facility] [address] Performing Lab: [facility] [place] [address] [address] [facility] [place] [facility] CBC AND DIFF (AUTO) HEMATOCRIT [VOLUME FRACTION] OF BLOOD BY AUTOMATED COUNT 44.3 39.2 - 50.4 01/27 Specimen Type: BLOOD No comment entered. Ordering Provider: GORDON CHILDS Report Released Date/Time: Jan 18, 2025 04:42 PM Reporting Lab: [facility] [place] [facility] [address] [facility] [address] Performing Lab: [facility] [place] [facility] [address] [facility] [address] [facility] [place] [facility] CBC AND DIFF (AUTO) MCV [ENTITIC VOLUME] BY AUTOMATED COUNT 90.0 fL 82 - 99 01/27 Specimen Type: BLOOD No comment entered. Ordering Provider: GORDON CHILDS Report Released Date/Time: Jan 18, 2025 04:42 PM Reporting Lab: [facility] [place] [facility] [address] [facility] [address] Performing Lab: [facility] [place] [facility] [address] [facility] [address] [facility] [place] [facility] CBC AND DIFF (AUTO) MCHC [MASS/VOLU ME] BY AUTOMATED COUNT 34.3 g/dL 30.8 - 35.1 01/27 Specimen Type: BLOOD No comment entered. Ordering Provider: GORDON CHILDS Report Released Date/Time: Jan 18, 2025 04:42 PM Reporting Lab: [facility] [place] [facility] [address] [facility] [address] Performing Lab: [facility] [place] [address] [address] [facility]RL [facility] [place] [facility] CBC AND DIFF (AUTO) PLATELETS [#/VOLUME] IN BLOOD BY AUTOMATED COUNT 183 10*3/uL 140 - 360 01/27 Specimen Type: BLOOD No comment entered. Ordering Provider: GORDON CHILDS Report Released Date/Time: Jan 18, 2025 04:42 PM Reporting Lab: [facility]ITALRL [facility] [place] [address] [address] Performing Lab: [facility] [place] [address] [address] [facility]RL [facility] [place] [facility] CBC AND DIFF (AUTO) PLATELET MEAN VOLUME [ENTITIC VOLUME] IN BLOOD BY AUTOMATED COUNT 9.9 fL 9.2 - 12.4 01/27 Specimen Type: BLOOD No comment entered. Ordering Provider: GORDON CHILDS Report Released Date/Time: Jan 18, 2025 04:42 PM Reporting Lab: [facility]RL [facility] [place] [address] [address] Performing Lab: [facility] [place] [address] [address] [facility] [place] [facility] CBC AND DIFF (AUTO) ERYTHROCYT E DISTRIBUTI ON WIDTH [RATIO] BY AUTOMATED COUNT 12.2 12.0 - 16.0 01/27 Specimen Type: BLOOD No comment entered. Ordering Provider: GORDON CHILDS Report Released Date/Time: Jan 18, 2025 04:42 PM Reporting Lab: [facility]RL [facility] [place] [address] [address] Performing Lab: [facility] [place] [address] [place] [address] [facility] [place] [facility] CBC AND DIFF (AUTO) MONOCYTES [#/VOLUME] IN BLOOD BY AUTOMATED COUNT 0.52 10*3/uL 0.30 - 1.10 01/27 Specimen Type: BLOOD No comment entered. Ordering Provider: GORDON CHILDS Report Released Date/Time: Jan 18, 2025 04:42 PM Reporting Lab: [facility] [place] [facility] [address] [facility] [address] Performing Lab: [facility] [place] [facility] [address] [facility] [address] [facility] [place] [facility] CBC AND DIFF (AUTO) MCH [ENTITIC MASS] BY AUTOMATED COUNT 30.9 pg 26.2 - 32.6 01/27 Specimen Type: BLOOD No comment entered. Ordering Provider: GORDON CHILDS Report Released Date/Time: Jan 18, 2025 04:42 PM Reporting Lab: [facility] [place] [address] [address] Performing Lab: [facility] [place] [address] [address] [facility] [place] [facility] CBC AND DIFF (AUTO) NEUTROPHIL S/100 LEUKOCYTES IN BLOOD BY AUTOMATED COUNT 58.6 43.7 - 75.8 01/27 Specimen Type: BLOOD No comment entered. Ordering Provider: GORDON CHILDS Report Released Date/Time: Jan 18, 2025 04:42 PM Reporting Lab: [facility] [place] [address] [address] Performing Lab: [facility] [place] [address] [address] [facility] [place] [facility] CBC AND DIFF (AUTO) LYMPHOCYTE S/100 LEUKOCYTES IN BLOOD BY AUTOMATED COUNT 23.8 14.0 - 42.3 01/27 Specimen Type: BLOOD No comment entered. Ordering Provider: GORDON CHILDS Report Released Date/Time: Jan 18, 2025 04:42 PM Reporting Lab: [facility] [place] [address] [place] [address] Performing Lab: [facility] [place] [facility] [address] [facility] [address] [facility] [place] [facility] CBC AND DIFF (AUTO) MONOCYTES/ 100 LEUKOCYTES IN BLOOD BY AUTOMATED COUNT 12.0 5.1 - 13.7 01/27 Specimen Type: BLOOD No comment entered. Ordering Provider: GORDON CHILDS Report Released Date/Time: Jan 18, 2025 04:42 PM Reporting Lab: [facility] [place] [facility] [address] [facility] [address] Performing Lab: [place] [facility] [place] [facility] [address] [facility] [address] [facility] [place] [facility] CBC AND DIFF (AUTO) EOSINOPHIL S/100 LEUKOCYTES IN BLOOD BY AUTOMATED COUNT 4.6 0.4 - 6.8 01/27 Specimen Type: BLOOD No comment entered. Ordering Provider: GORDON CHILDS Report Released Date/Time: Jan 18, 2025 04:42 PM Reporting Lab: [facility] [place] [facility] [address] [facility] [address] Performing Lab: [place] [facility] [place] [facility] [address] [facility] [address] [facility] [place] [facility] CBC AND DIFF (AUTO) BASOPHILS/ 100 LEUKOCYTES IN BLOOD BY AUTOMATED COUNT 0.5 0.1 - 2.0 01/27 Specimen Type: BLOOD No comment entered. Ordering Provider: GORDON CHILDS Report Released Date/Time: Jan 18, 2025 04:42 PM Reporting Lab: [facility] [place] [facility] [address] [facility] [address] Performing Lab: [place] [facility] [place] [facility] [address] [facility] [address] [facility] [place] [facility] CBC AND DIFF (AUTO) NEUTROPHIL S [#/VOLUME] IN BLOOD BY AUTOMATED COUNT 2.54 10*3/uL 2.20 - 7.60 01/27 Specimen Type: BLOOD No comment entered. Ordering Provider: OGRDON CHILDS Report Released Date/Time: Jan 18, 2025 04:42 PM Reporting Lab: [facility] [place] [facility] [address] [facility] [address] Performing Lab: [facility] [place] [facility] [address] [facility] [address] [facility] [place] [facility] CBC AND DIFF (AUTO) LYMPHOCYTE S [#/VOLUME] IN BLOOD BY AUTOMATED COUNT 1.03 10*3/uL 1.00 - 3.20 01/27 Specimen Type: BLOOD No comment entered. Ordering Provider: GORDON CHILDS Report Released Date/Time: Jan 18, 2025 04:42 PM Reporting Lab: [facility] [place] [facility] [address] [facility] [address] Performing Lab: [facility] [place] [facility] [address] [facility] [address] [facility] [place] [facility] CBC AND DIFF (AUTO) EOSINOPHIL S [#/VOLUME] IN BLOOD BY AUTOMATED COUNT 0.20 10*3/uL 0.03 - 0.44 01/27 Specimen Type: BLOOD No comment entered. Ordering Provider: GORDON CHILDS Report Released Date/Time: Jan 18, 2025 04:42 PM Reporting Lab: [facility] [place] [facility] [address] [facility] [address] Performing Lab: [facility] [place] [facility] [address] [place] [address] [facility] [place] [facility] CBC AND DIFF (AUTO) BASOPHILS [#/VOLUME] IN BLOOD BY AUTOMATED COUNT 0.02 10*3/uL 0.01 - 0.13 01/27 Specimen Type: BLOOD No comment entered. Ordering Provider: GORDON CHILDS Report Released Date/Time: Jan 18, 2025 04:42 PM Reporting Lab: [facility] [place] [facility] [address] [facility] [address] Performing Lab: [facility] [place] [facility] [address] [place] [address] [facility] [place] [facility] CBC AND DIFF (AUTO) IMMATURE GRANULOCYT ES/100 LEUKOCYTES IN BLOOD BY AUTOMATED COUNT 0.5 0.0 - 0.7 01/27 Specimen Type: BLOOD No comment entered. Ordering Provider: GORDON CHILDS Report Released Date/Time: Jan 18, 2025 04:42 PM Reporting Lab: [facility] [place] [address] [address] Performing Lab: [facility] [place] [address] [address] [facility] [place] [facility] CBC AND DIFF (AUTO) IMMATURE GRANULOCYT ES [#/VOLUME] IN BLOOD BY AUTOMATED COUNT 0.02 10*3/uL 0.00 - 0.06 01/27 Specimen Type: BLOOD No comment entered. Ordering Provider: GORDON CHILDS Report Released Date/Time: Jan 18, 2025 04:42 PM Reporting Lab: [facility] [place] [address] [address] Performing Lab: [facility] [place] [address] [address] [facility] [place] [facility] CBC AND DIFF (AUTO) NUCLEATED ERYTHROCYT ES/100 LEUKOCYTES [RATIO] IN BLOOD BY AUTOMATED COUNT 0.0 0.0 - 0.0 01/27 Specimen Type: BLOOD No comment entered. Ordering Provider: GORDON CHILDS Report Released Date/Time: Jan 18, 2025 04:42 PM Reporting Lab: [facility] [place] [address] [address] Performing Lab: [facility] [place] [address] [address] [facility] [facility] CBC AND DIFF (AUTO) NUCLEATED ERYTHROCYT ES [#/VOLUME] IN BLOOD BY AUTOMATED COUNT 0.00 10*3/uL 0.00 - 0.00 01/27 Specimen Type: BLOOD No comment entered. Ordering Provider: GORDON CHILDS Report Released Date/Time: Jan 18, 2025 04:42 PM Reporting Lab: [facility] [place] [address] [address] Performing Lab: [facility] [place] [facility] [address] [facility] [address] [facility] [place] [facility] URINALYS IS CLEAN CATCH COLOR OF URINE Light-Ye llow 01/27 Specimen Type: URINE Comment: If Glucose = >500 and Ketones are positive, please alert the Physician. Ordering Provider: GORDON CHILDS Report Released Date/Time: Jan 18, 2025 04:42 PM Reporting Lab: [facility] [place] [address] [address] Performing Lab: [facility] [place] [address] [address] [facility] [place] [facility] URINALYS IS CLEAN CATCH APPEARANCE OF URINE Clear 01/27 Specimen Type: URINE Comment: If Glucose = >500 and Ketones are positive, please alert the Physician. Ordering Provider: GORDON CHILDS Report Released Date/Time: Jan 18, 2025 04:42 PM Reporting Lab: [facility] [place] [address] [address] Performing Lab: [facility] [place] [address] [address] [facility] [place] [facility] URINALYS IS CLEAN CATCH GLUCOSE [MASS/VOLU ME] IN URINE Normalmg /dL 01/27 Specimen Type: URINE Comment: If Glucose = >500 and Ketones are positive, please alert the Physician. Ordering Provider: GORDON CHILDS Report Released Date/Time: Jan 18, 2025 04:42 PM Reporting Lab: [facility] [place] [address] [address] Performing Lab: [facility] [place] [address] [address] [facility] [facility] URINALYS IS CLEAN CATCH KETONES [MASS/VOLU ME] IN URINE BY TEST STRIP NEGATIVE mg/dL 01/27 Specimen Type: URINE Comment: If Glucose = >500 and Ketones are positive, please alert the Physician. Ordering Provider: GORDON CHILDS Report Released Date/Time: Jan 18, 2025 04:42 PM Reporting Lab: [facility] [place] [facility] [address] [facility] [address] Performing Lab: [facility] [place] [facility] [address] [facility] [address] [facility] [place] [facility] URINALYS IS CLEAN CATCH ERYTHROCYT ES [PRESENCE] IN URINE SEDIMENT BY LIGHT MICROSCOPY NEGATIVE mg/dL 01/27 Specimen Type: URINE Comment: If Glucose = >500 and Ketones are positive, please alert the Physician. Ordering Provider: GORDON CHILDS Report Released Date/Time: Jan 18, 2025 04:42 PM Reporting Lab: [facility] [place] [facility] [address] [facility] [address] Performing Lab: [facility] [place] [facility] [address] [facility] [address] [facility] [place] [facility] URINALYS IS CLEAN CATCH PROTEIN [MASS/VOLU ME] IN URINE BY TEST STRIP NEGATIVE mg/dL 01/27 Specimen Type: URINE Comment: If Glucose = >500 and Ketones are positive, please alert the Physician. Ordering Provider: GORDON CHILDS Report Released Date/Time: Jan 18, 2025 04:42 PM Reporting Lab: [facility] [place] [facility] [address] [facility] [address] Performing Lab: [facility] [place] [facility] [address] [facility] [address] [facility] [place] [facility] URINALYS IS CLEAN CATCH NITRITE [PRESENCE] IN URINE NEGATIVE mg/dL 01/27 Specimen Type: URINE Comment: If Glucose = >500 and Ketones are positive, please alert the Physician. Ordering Provider: GORDON CHILDS Report Released Date/Time: Jan 18, 2025 04:42 PM Reporting Lab: [facility] [place] [facility] [address] [facility] [address] Performing Lab: [facility] [place] [facility] [address] [facility] [address] [facility] [place] [facility] URINALYS IS CLEAN CATCH BILIRUBIN. TOTAL [PRESENCE] IN URINE NEGATIVE mg/dL 01/27 Specimen Type: URINE Comment: If Glucose = >500 and Ketones are positive, please alert the Physician. Ordering Provider: GORDON CHILDS Report Released Date/Time: Jan 18, 2025 04:42 PM Reporting Lab: [facility] [place] [address] [address] Performing Lab: [facility] [address] [facility] URINALYS IS CLEAN CATCH SPECIFIC GRAVITY OF URINE BY REFRACTOME TRY 1.025 1.016 - 1.022 01/27 H Specimen Type: URINE Comment: If Glucose = >500 and Ketones are positive, please alert the Physician. Ordering Provider: GORDON CHILDS Report Released Date/Time: Jan 18, 2025 04:42 PM Reporting Lab: [facility] [address] Performing Lab: [facility] [address] [facility] URINALYS IS CLEAN CATCH PH OF URINE BY TEST STRIP 6.0 5.0 - 9.0 01/27 Specimen Type: URINE Comment: If Glucose = >500 and Ketones are positive, please alert the Physician. Ordering Provider: GORDON CHILDS Report Released Date/Time: Jan 18, 2025 04:42 PM Reporting Lab: [facility] [address] [address] Performing Lab: [facility]TR[facility] [address] [facility] URINALYS IS CLEAN CATCH UROBILINOG EN [MASS/VOLU ME] IN URINE BY TEST STRIP Normalmg /dL <2.0 - 2.0 01/27 Specimen Type: URINE Comment: If Glucose = >500 and Ketones are positive, please alert the Physician. Ordering Provider: GORDON CHILDS Report Released Date/Time: Jan 18, 2025 04:42 PM Reporting Lab: [facility] [address] [facility] [address] Performing Lab: [facility] [address] [facility] [address] [facility] URINALYS IS CLEAN CATCH LEUKOCYTE ESTERASE [PRESENCE] IN URINE BY TEST STRIP NEGATIVE 01/27 Specimen Type: URINE Comment: If Glucose = >500 and Ketones are positive, please alert the Physician. Ordering Provider: GORDON CHILDS Report Released Date/Time: Jan 18, 2025 04:42 PM Reporting Lab: [facility] [address] [facility] [address] Performing Lab: [address] [address] [facility] VITAMIN D 25-OH (Therapy monitor) 25-HYDROXY VITAMIN [...] additional information , please refer to http://educ ation.[employer] .com/faq/FA Q199 (This link is being provided for information al/ educational purposes only.) This test was developed and its analytical performance characteris tics have been determined by [employer] [place]. It has not been cleared or approved by the U.S. Food and Drug Administrat [employer]. This assay has been validated pursuant to the CLIA regulations and is used for clinical purposes. This test was developed and its analytical performance characteris tics have been determined by [employer]. It has not been cleared or approved by the U.S. Food and Drug Administrat ion. This assay has been validated pursuant to the CLIA regulations and is used for clinical purposes. Test Performed by Aden[facility] Maximo, [employer] [place], [address] [place], [place] Jacob Connor M.D., Ph.D., Director of Laboratorie s , CLIA [id number] TEST PERFORMED AT: , Ordering Provider: GORDON CHILDS Report Released Date/Time: Jul 20, 2024 04:28 PM Reporting Lab: [facility] [address] [facility] [address] Performing Lab: [facility] [address] [address] [facility] VITAMIN D 25-OH (Therapy monitor) 25-HYDROXY VITAMIN [...] additional information , please refer to http://educ ation.[employer] .com/faq/FA Q199 (This link is being provided for information al/ educational purposes only.) This test was developed and its analytical performance characteris tics have been determined by [facility]. It has not been cleared or approved by the U.S. Food and Drug Administrat [employer]. This assay has been validated pursuant to the CLIA regulations and is used for clinical purposes. This test was developed and its analytical performance characteris tics have been determined by [employer]. It has not been cleared or approved by the U.S. Food and Drug Administrat [employer]. This assay has been validated pursuant to the CLIA regulations and is used for clinical purposes. Test Performed by [facility], [employer] [place], [address] [place], [place] Jacob Connor M.D., Ph.D., Director of Laboratorie s , CLIA [id number] TEST PERFORMED AT: , Ordering Provider: GORDON CHILDS Report Released Date/Time: Jul 20, 2024 04:28 PM Reporting Lab: [facility] [address] [facility] [address] Performing Lab: [facility] [address] [address] [facility] VITAMIN D 25-OH (Therapy monitor) CALCIFEROL (VIT [...] additional information , please refer to http://educ ation.[employer] .com/faq/FA Q199 (This link is being provided for information al/ educational purposes only.) This test was developed and its analytical performance characteris tics have been determined by [employer]. It has not been cleared or approved by the U.S. Food and Drug Administrat ion. This assay has been validated pursuant to the CLIA regulations and is used for clinical purposes. This test was developed and its analytical performance characteris tics have been determined by [employer]. It has not been cleared or approved by the U.S. Food and Drug Administrat ion. This assay has been validated pursuant to the CLIA regulations and is used for clinical purposes. Test Performed by Maximo Nieto, [facility], [address] [place] [address], [place], [place] Jacob Connor M.D., Ph.D., Director of Laboratorie s , CLIA [id number] TEST PERFORMED AT: , Ordering Provider: GORDON CHILDS Report Released Date/Time: Jul 20, 2024 04:28 PM Reporting Lab: [facility] [place] [facility] [address] [facility] [address] Performing Lab: [facility] [facility] [address] [address] [facility] [facility] Vital Signs Combined list of inpatient and outpatient Vital Signs from Department of Defense and Veterans Affairs, ranging from 12 months to all on record, depending upon the facility. Vital Sign Value Date Comments Source SYSTOLIC BLOOD PRESSURE 134 01/28/20 25 08:56:05 [facility] [place] [facility] DIASTOLIC BLOOD PRESSURE 82 025 08:56:05 [facility] [place] [facility] PULSE OXIMETRY 100 01/27/2025 08:56:05 [facility] [place] [facility] [id number] D 10/08 [facility] [place] [facility] [place] [facility] En[facility] [id number] 10/24 [facility] [place] [facility] [place] [facility] OFFICE O/P EST SF 10 MIN [id number] Diagnos is: ICD-10- CM 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 AZEB CHILDS RD D 10/30 [facility] [place] [facility] [place] [facility] OFF[facility] O/P EST MOD 30 MIN [id number] Diagnos is: ICD-10- CM M54.16 Radicul opathy, lumbar region ADITHYA VARGAS IEL Y 10/30 [facility] [place] [facility] [place] [facility] En[facility] [id number] 11/03 [facility] [place] [facility] [place] [facility] En[facility] [id number] 11/03 [facility] [place] [facility] [place] [facility] En[facility] [id number] D 11/03 [facility] [place] [facility] [place] [facility] En[facility] [id number] D 11/03 [facility] [place] [facility] [place] [facility] En[facility] [id number] 11/08 [facility] [place] [facility] [place] [facility] En[facility] [id number] 11/15 [facility] [place] [facility] [place] [facility] OFFICE O/P EST SF 10 MIN [id number] Diagnos is: ICD-10- CM 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 hic neuropa thy, unspeci fiAZEB Byers RD D 11/17 [facility] [place] [facility] [place] [facility] THERAPEUTI C EXERCISES [id number] Diagnos is: ICD-10- CM M54.50 Low back pain, unspeci fiJALEN Franklin 12/20 [facility] [place] [facility] [place] En[facility] [id number] 12/28 [facility] [place] [facility] [place] En[facility] [id number] 12/30 [facility] [place] [facility] [place] En[facility] [id number] 01/10 [facility] [place] [facility] [place] [facility] En[facility] [id number] 01/18 [facility] [place] [facility] [place] En[facility] [id number] 01/21 [facility] [place] [facility] [place] En[facility] [id number] 01/31 [facility] [place] [facility] [place] COMPRE [place]PH EXAM EST PT 1/ [id number] Diagnos is: ICD-10- CM H25.813 Combine d forms of age-rel ated catarac t, bilater al EDITH YOUSIF 02/01 [facility] [place] [facility] FIT SPECTACLES MULTIFOCAL [id number] Diagnos is: ICD-10- CM Z46.0 Encount er for fit/adj st of spectac les and contact lenses EDITH YOUSIF 02/01 [facility] [place] [facility] [place] [facility] OFFICE O/P EST LOW 20 MIN [id number] Diagnos is: ICD-10- CM M54.50 Low back pain, unspeci fied AZEB CHILDS RD 02/01 [facility] [place] [facility] [place] RPR&REFITG SPECT XCP APHAKIA [id number] Diagnos is: ICD-10- CM Z46.0 Encount er for fit/adj st of spectac les and contact lenses JOSHUA NEWELL A 02/13 [facility] [place] [facility] En[facility] [id number] 03/04 [facility] [place] [facility] En[facility] [id number] 03/14 [facility] [place] [facility] En[facility] [id number] D 03/31 [facility] [place] [facility] En[facility] [id number] D 06/09 [facility] [place] En[facility] [id number] 07/22 [facility] [place] [facility] En[facility] [id number] 07/26 [facility] [place] [facility] Encounter [id number] 08/01 [facility] [place] OFFICE O/P EST LOW 20 MIN [id number] Diagnos is: ICD-10- CM I10 Essenti al (primar y) hyperte nsion AZEB CHILDS RD D 08/02 [facility] [place] En[facility] [id number] D 08/06 [facility] [place] [facility] En[facility] [id number] 1.08/15 [facility] [place] [facility] En[facility] [id number] 1.08/28 [facility] [place] [facility] En[facility] [id number] D 09/17 [facility] [place] [facility] En[facility] [id number] D 09/18 [facility] [place] [facility] Encounter [id number] 10/16 [facility] [place] [facility] Encounter [id number] 11/04 [facility] [place] [facility] Encounter [id number] D 11/05 [facility] [place] [facility] En[facility] [id number] 11/14 [facility] [place] [facility] Encounter [id number] D 01/08 [facility] [place] [facility] [id number] 01/20 [facility] [place] [facility] [place] [facility] OFFICE O/P EST LOW 20 MIN [id number] Diagnos is: ICD-10- CM 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, unspeci fied AZEB CHILDS RD D 01/27 [facility] [place] [facility] [place] [facility] Outpatient Encounter [id number] D 01/27 [facility] [place] [facility] [place] [facility] [place] 1 [id number] Diagnos is: ICD-10- CM H25.813 Combine d forms of age-rel ated catarac t, bilater al EDITH YOUSIF 02/05 [facility] [place] [facility] [place] [facility] RPR&REFITG SPECT XCP APHAKIA [id number] Diagnos is: ICD-10- CM Z46.0 Encount er for fit/adj st of spectac les and contact lenses EDITH YOUSIF 02/05 [facility] [place] [facility] [place] [facility] Outpatient Encounter [id number] 02/13 [facility] [place] [facility] Social History Combined list of available smoking, tobacco, and other social history from Department of Defense and Veterans Affairs facilities. Social History Type Response Date Comment Source Tobacco smoking status [facility] VA-TOBACCO NEVER USED 08/02/2024 [facility] [place] History of tobacco use VA-TOBACCO FORMER USER 05/01/2023 [facility] History of tobacco use VA-TOBACCO FORMER USER 05/13/2022 [facility] [place] [facility] History of tobacco use [facility]ACCO [facility] tobacco use AL-TOBACCO FORMER USER 06/23/2020 [facility] [place] [facility] History of tobacco use AL-TOBACCO NEVER USED 09/18/2018 [facility] History of tobacco use LIFETIME NON-TOBACCO USER 03/26/2018 [facility] History [facility] tobacco use LIFETIME NON-TOBACCO USER 06/17/2016 [facility] [place] [facility] History of tobacco use QUIT TOBACCO USE > 7 YEARS AGO 03/03/2011 quit 20 years ago [facility] Plan of Care List of future care activities from Department of Veterans Affairs facilities. Additional future care activities may be listed in the Assessment and Plan section. Date/Time Care Activity Care Activity Detail Facili ty 07/29/2025 AMBULATORY - MEDIC[facility]
[2025-02-19 09:57] VITALS: BMI 28.2
--- NOTE | 2025-02-19 15:19 | HO.ANESPROP2 ---
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) Anal lesion (Acute) History of anal cancer (Acute) Hyperplastic polyp of descending colon (Acute) H/O colonoscopy (Acute) Family history of colon cancer (Acute) Past Medical History Medical History (Updated 02/06/25 @ 11:20 by Lavelle Cabezas MD) Anal polyp HTN (hypertension) Anal lesion Nasal trauma History of anal cancer Hyperplastic polyp of descending colon Family history of colon cancer Hypercholesteremia Family History Family History Mother Diabetes 1.5, managed as type 1 Father Colon cancer Family history of problems with anesthesia: No Surgical History Surgical History Hx of surgical procedure (~07/14/23) History of nasal surgery H/O colonoscopy History of incision and drainage History of Problems with Anesthesia: No Social History Social History Are you a primary senior care provider to a significant other at home: No Do you presently have visiting nurse or other home services: No Alcohol intake: current Alcohol intake frequency: 0-2 drinks per day Patient Tobacco Use Status: Never used Tobacco Current occupational status: employed Meds Allergies Allergy/AdvReac Type Severity Reaction Status Date / Time Pmgvzvc-DGQ-InN Reductase AdvReac Unknown LIVER TOXIC Verified 02/06/25 11:08 Inhibitor [ZGGLIEG-TGG-LBJ REDUCTASE INHIBITOR] statin meds Allergy Intermediate liver Uncoded 02/06/25 11:08 functions Home Medications ?Medication ?Instructions ?Recorded ?Confirmed ?Last Taken ?Type ezetimibe 10 mg tablet (Zetia) 10 mg PO DAILY 10/12/20 02/03/25 07/13/23 History amlodipine 10 mg PO DAILY 07/14/23 02/03/25 07/07/23 History Exam Height,Weight and Vital Signs: Height 5 ft 9 in Weight 86.636 kg Pertinent Lab Results Pertinent Lab Results: Laboratory Tests 02/03/25 12:15 WBC 4.0 L Hgb 13.8 L Hct 40.0 L Plt Count 176 Sodium 138 Potassium 3.8 Chloride 107 Carbon Dioxide 24 BUN 18 H Creatinine 0.84 Assessment and Plan Assessment Anesthesia Assessment: Chart Reviewed Final Anesthetic Review Family History of Problems with Anesthesia: No History of Problems with Anesthesia: No Documented by User: Nona Hendrix MD 02/21/25 11:43 PMF Past Medical History Medical History (Updated 02/06/25 @ 11:20 by Lavelle Cabezas MD) Anal polyp HTN (hypertension) Anal lesion Nasal trauma History of anal cancer Hyperplastic polyp of descending colon Family history of colon cancer Hypercholesteremia Family History Family History Mother Diabetes 1.5, managed as type 1 Father Colon cancer Surgical History Surgical History Hx of surgical procedure (~07/14/23) History of nasal surgery H/O colonoscopy History of incision and drainage Social History Social History Are you a primary senior care provider to a significant other at home: No Do you presently have visiting nurse or other home services: No Alcohol intake: current Alcohol intake frequency: 0-2 drinks per day Patient Tobacco Use Status: Never used Tobacco Current occupational status: employed Meds Allergies Allergy/AdvReac Type Severity Reaction Status Date / Time Deqcdfm-RUX-YpK Reductase AdvReac Unknown LIVER TOXIC Verified 02/06/25 11:08 Inhibitor [USTHTVN-RAI-DTZ REDUCTASE INHIBITOR] statin meds Allergy Intermediate liver Uncoded 02/06/25 11:08 functions Home Medications ?Medication ?Instructions ?Recorded ?Confirmed ?Last Taken ?Type ezetimibe 10 mg tablet (Zetia) 10 mg PO DAILY 10/12/20 02/03/25 07/13/23 History amlodipine 10 mg PO DAILY 07/14/23 02/03/25 07/07/23 History Exam Airway Mallampati Class: III TM Dist: >3cm Neck ROM: Full Loose/Missing/Broken Teeth: No Heart: RRR Lungs: CTA Assessment and Plan Assessment Anesthesia Assessment: Anesthesia Plan Discussed Final Anesthetic Review NPO: Yes ASA Class: II Final Preanesthetic Review: Meds/Allgs Chart Reviewed, Consent Obtained/Reviewed and Anes Risks/Benef Reviewed Patient Risk: Low Procedure Risk: Low Anesthetic Plan Anesthetic Plan: GA Disposition: Standard PACU
[2025-02-21 11:28] VITALS: BMI 28.1
--- NOTE | 2025-02-21 11:31 | MHC.SHP ---
Pre-Procedural Eval Section A - 24 Hr Update-Section A only Date of Service: 02/21/25 The patient is an INPATIENT: No Changes since office visit: No Cold of Flu in the past 2 weeks, No New Medical Problems, No Changes in Medication and No Patient answered all questions The patient has been examined within 24 hours of the surgical procedure. The History & Physical has been completed within 30 days and I have reviewed it.: Yes Section B - Complete if H&P > 30 days Chief Complaint: Anal polyp Allergies: Allergies Allergy/AdvReac Type Severity Reaction Status Date / Time Akddkkq-SNA-ZdP Reductase AdvReac Unknown LIVER TOXIC Verified 02/06/25 11:08 Inhibitor [CXQRGRN-NXM-YAF REDUCTASE INHIBITOR] statin meds Allergy Intermediate liver Uncoded 02/06/25 11:08 functions Plan I have reviewed the history and physical and performed a pertinent physical examination on my patient. No changes have occurred unless specified. Time Spent With Patient Time: Total time managing care of this patient today ____ minutes.
[2025-02-21 11:42] VITALS: BP 138/72; PULSE 68; RESP 16; TEMP 36.3; O2SAT 96
[2025-02-21] MEDS: Acetaminophen 325 MG TABLET 975 MG PO (11:51)
--- NOTE | 2025-02-21 12:26 | P.OP_ITS ---
Operative Note Operative Note Date of Service: 02/21/25 Narrative: Preop diagnosis: Anal polyp, history of anal , squamous cell cancer Postop diagnosis: The same Procedure: Exam under anesthesia, excision of anal polyp Surgeon: Lavelle Cabezas MD The patient is a 64-year-old male with a history of squamous cell carcinoma the anus, treated with chemotherapy and radiation 6 years ago, here for excision of a polyp in the distal anal canal anteriorly. He understood the technique of the planned procedure as well as the risks, benefits, and alternatives. Decubitus brought to the operating room. He was placed in prone brian-knife position under general anesthesia via endotracheal tube. The buttocks were retracted with wide tape laterally. The perianal area was prepped and draped in the usual sterile fashion. A surgical time-out was done. The patient received Cefotan 2 g IV preoperatively. There were no lesions in the perianal skin. There was note of chronic radiation changes on the skin I inserted the Juany Walters retractor. I examined the anal canal circumferenti ally. There was note of about 7 mm polypoid lesion, elevated with a broad-base, in the anterior distal anal canal. There were no other lesions in the rest of the anal canal. There was no fissure, there was no ulceration. I scored the periphery of the polyp with electrocautery to make sure that we had grossly negative margins. I then electrocautery to excise this polyp taking the full-thickness of the distal anoderm. Again, this polyp was about 7 mm in diameter I cauterized the excised this. No bleeding was seen. I did not apply any additional chromic 3-0 sutures to close air Once hemostasis was confirmed, I infiltrated the perianal area with Marcaine with poor% for postop analgesia. The procedure was completed. He tolerated the procedure well. There were no immediate complications I will see him in the office for discussion of the path report.
[2025-02-21 12:27] VITALS: BP 142/68; PULSE 67; RESP 18; TEMP 36.4; O2SAT 96
[2025-02-21 12:32] VITALS: BP 118/46; PULSE 71; RESP 18; O2SAT 96
[2025-02-21 12:37] VITALS: BP 131/56; PULSE 67; RESP 16; O2SAT 95
[2025-02-21 12:42] VITALS: BP 121/64; PULSE 67; RESP 16; O2SAT 95
[2025-02-21 12:57] VITALS: BP 123/62; PULSE 62; RESP 16; TEMP 36.4; O2SAT 95
== END 2025-02-21 13:17 | disposition home or self-care (01) ==
PROVIDERS: PCP Internal Medicine; Visit Provider Surgery
PROC: 0DBQXZZ Excision of Anus, External Approach (ICD-10-PCS; CPT 46910; principal; 2025-02-21 13:40)
DX: K62.0 Anal polyp (principal); Z85.048 Personal history of other malignant neoplasm of rectum, rectosigmoid junction, and anus; Z92.21 Personal history of antineoplastic chemotherapy; Z92.3 Personal history of irradiation; L58.1 Chronic radiodermatitis; K62.5 Hemorrhage of anus and rectum; K64.8 Other hemorrhoids; Z80.0 Family history of malignant neoplasm of digestive organs; I10 Essential (primary) hypertension; E78.00 Pure hypercholesterolemia, unspecified; Z88.8 Allergy status to other drugs, medicaments and biological substances; Z98.890 Other specified postprocedural states
CPT/HCPCS: 46910; 88304; 88305; J1100; J1885; J2003; J2250; J2405; J2704; J2795; J3010

== ENCOUNTER → 2025-02-21 11:19 | Outpatient (BNV) | payer OTHER, SELFPAY | PROVIDERS: PCP Internal Medicine; Visit Provider Surgery | DX: K62.0 Anal polyp (principal) | CPT/HCPCS: 46922 ==

== ENCOUNTER 2025-03-10 15:31 | Outpatient (AMB) | payer OTHER, SELFPAY ==
--- NOTE | 2025-03-10 15:32 | MHC.OFFVIS ---
Vital Signs 03/10/25 15:38 Weight 193 lb BP 179/79 H Blood Pressure Location Rt brachial Position Sitting Pulse 65 Intake Visit Reasons: S/P EUA, exc. of anal polyp Intake Note: Patient here s/p excision of anal polyp. Patient c/o: reports site healed well. Reports 1 episode of pain with hard stool. Surgery: 02-21-2025 Investor Relations Specialist Required: No Accompanied by: Self / Same As Patient Allergies Eveebct-HTP-SjK Reductase Inhibitor [VQERUUP-JFW-IDU REDUCTASE INHIBITOR] Adverse Reaction (Unknown, Verified 03/10/25 15:33) LIVER TOXIC statin meds Allergy (Intermediate, Uncoded 03/10/25 15:33) liver functions HPI HPI S/P EUA, exc. of anal polyp: Details: He had excision of an anal polyp last 02/21/2025. He tolerated procedure well. He currently denies significant pain. He says he feels well overall. [facility] Medical History Anal polyp HTN (hypertension) Anal lesion Nasal trauma History of anal cancer Hyperplastic polyp of descending colon Family history of colon cancer Hypercholesteremia Surgical History Hx of surgical procedure (~07/14/23) History of nasal surgery H/O colonoscopy History of incision and drainage Family History Mother Diabetes 1.5, managed as type 1 Father Colon cancer Social History Are you a primary direct care specialist to a significant other at home: No Do you presently have visiting nurse or other home services: No Alcohol intake: current Alcohol intake frequency: 0-2 drinks per day Patient Tobacco Use Status: Never used Tobacco Current occupational status: employed Review of Systems Const Denies chills and Denies fever(s) Resp Denies cough GI Denies abdominal pain, Reports hematochezia and Denies constipation Physical Exam Vital Signs: Last Vital Signs Pulse 65 03/10/25 15:38 BP 179/79 H 03/10/25 15:38 Const General: comfortable and no acute distress Resp Effort & Inspection: normal respiratory effort GI Other: Rectal exam shows no anal canal infection, no induration or any pus, no redness, no significant tenderness Assessment & Plan Assessment & Plan (1) Anal polyp: Code(s): K62.0 - Anal polyp Category: Medical Plan: Status post excision. Fortunately, his path report shows a fibroepithelial polyp. He understands the benign nature of this pathology I advised him to avoid straining and constipation. He can follow up on a p.r.n. basis. He does come to me regularly for surveillance anoscopy. Coding Level of Care Code Global (64393) Diagnoses Anal polyp K62.0
[2025-03-10 15:38] VITALS: BP 179/79; PULSE 65
== END 2025-03-10 15:50 | disposition home or self-care (01) ==
LOC: HO.HGS 15:32
PROVIDERS: PCP Internal Medicine; Visit Provider Surgery
DX: K62.0 Anal polyp (principal)
CPT/HCPCS: 99024

== ENCOUNTER → 2025-03-10 15:31 | Outpatient (BNVA) | payer OTHER, SELFPAY | PROVIDERS: PCP Internal Medicine; Visit Provider Surgery | DX: K62.0 Anal polyp (principal); Z86.0100 Personal history of colon polyps, unspecified | CPT/HCPCS: 99212 ==

== ENCOUNTER 2025-08-07 09:40 | Outpatient (AMB) | payer OTHER, SELFPAY ==
--- NOTE | 2025-08-07 09:41 | A.OFFVIS_ITS ---
Vital Signs 08/07/25 09:50 Weight 192 lb 15.988 oz BP 166/76 H Blood Pressure Location Lt brachial Position Sitting Pulse 61 Intake Visit Reasons: 1 year follow-up anal lesion Intake Note: This patient presents for one year follow-up for anal lesion. Pt c/o; no complaints. [employer] Sales Representative Required: No Accompanied by: Self / Same As Patient Allergies Lbtiyhg-BDG-PyJ Reductase Inhibitor (NHYKAXR-GTZ-XFU REDUCTASE INHIBITOR) Adverse Reaction (Unknown, Verified 08/07/25 09:51) LIVER TOXIC statin meds Allergy (Intermediate, Uncoded 08/07/25 09:51) liver functions Medication List - Last Reconciled 08/07/25 by Lavelle Cabezas MD [amlodipine 10 mg PO DAILY] docusate sodium (Colace) 100 mg PO BID ezetimibe (Zetia) 10 mg PO DAILY ibuprofen 600 mg PO Q6H PRN tramadol 50 mg PO Q6H PRN HPI HPI 1 year follow-up anal lesion: Details: He says he is here for follow-up for his history of squamous cell anal carcinoma. He has been disease-free after chemotherapy and radiation for 7 years now. He denies any complaints with regards to his anus. He feels well overall. [facility] Medical History Anal polyp HTN (hypertension) Anal lesion Nasal trauma History of anal cancer Hyperplastic polyp of descending colon Family history of colon cancer Hypercholesteremia Surgical History Hx of surgical procedure (~07/14/23) History of nasal surgery H/O colonoscopy History of incision and drainage Family History Mother Diabetes 1.5, managed as type 1 Father Colon cancer Social History Are you a primary chronic care nurse to a significant other at home: No Do you presently have visiting nurse or other home services: No Alcohol intake: current Alcohol intake frequency: 0-2 drinks per day Patient Tobacco Use Status: Never used Tobacco Current occupational status: employed Review of Systems Const Denies chills and Denies fever(s) Card Denies chest pain, Denies dyspnea and Denies dyspnea on exertion Resp Denies cough, Denies dyspnea and Denies dyspnea on exertion GI Denies hematochezia and Denies change in bowel habits Denies hematuria and Denies difficulty urinating Musc Denies back pain and Denies limited range of motion Neuro Denies focal weakness and Denies convulsions Psych Denies depression and Denies mood swings Physical Exam Vital Signs: Last Vital Signs Pulse 61 08/07/25 09:50 BP 166/76 H 08/07/25 09:50 Const General: comfortable and no acute distress Resp Effort & Inspection: normal respiratory effort GI Other: Rectal exam shows no anal canal lesions, no new skin changes or ulceration or fissure Palpation (GI): Soft to palpation Assessment & Plan Assessment & Plan (1) History of anal cancer: Code(s): Z85.048 - Personal history of other malignant neoplasm of rectum, rectosigmoid junction, and anus Category: Medical Plan: Current exam does not suggest any recurrence. He is doing very well overall He is due for a colonoscopy next year so he says he will come back to schedule for that. Coding Level of Care Code Est Pt Level 2 (61544) Diagnoses History of anal cancer Z85.048
[2025-08-07 09:50] VITALS: BP 166/76; PULSE 61
--- OUTSIDE RECORDS SUMMARY | 2025-08-07 10:53 | XMS_ITS | Encounter Summary ---
Author Organization [facility] Address [address] [place] [address] Phone Care Team Providers Care Hair Baler Name Role Phone Breanna Watson MD Unavailable Lavelle Cabezas MD Unavailable [phone] Tej Roberts MD Primary Care Provider [phone] Singh Alvarez MD Unavailable Encounter Details Date Type Department Care Team (Late st Contact Info) Description 05/16/2018 Procedure Pass [facility], Ct Scan - [address] [address] Social History Tobacco Use Types Packs/Day Years Used Date Smoking Tobacco: Former Cigarettes 0.3 10 Alcohol Use Standard Drinks/Week Comments Yes 0 (1 standard drink = 0.6 oz pur e alcohol) weekends Sex and Gender Information Value Date Recorded Sex Assigned at Male 12/14/2020 8:28 AM EDT Legal Sex Male 10:28 AM EDT Gender Identity Male 12/14/2020 8:28 AM EDT Sexual Orientation Straight 12/14/2020 8: 28 AM EDT documented as of this encounter Plan of Treatment Not on file documented as of this encounter Visit Diagnoses Not on filedocumented in this encounter Care Teams Hair Baler Relationship Specialty Start Date End Date Tej Roberts MD [address] [place] [address] PCP - General Internal Medicine 05/16/18 Breanna Watson MD [address] [place] [address] Hematology and Oncology 03/22/18 Lavelle Cabezas MD [address] [place] [address] [place] [address] General Surgery 03/22/18 Singh Alvarez MD [address] [place] [address] Primary Care Physician Internal Medicine 08/03/18 documented as of this encounter Additional Source Comments The information contained in this document represents components of the legal health record. It is not the complete legal health record.[facility]
--- OUTSIDE RECORDS SUMMARY | 2025-08-07 10:53 | XMS_ITS | Encounter Summary ---
Author Organization [facility] Address [address] [place] [address] Phone Care Team Providers Care Leather Cartridge Belt Maker Name Role Phone Singh Alvarez MD Primary Care Provider + Breanna Watson MD Unavailable Lavelle Cabezas MD Unavailable [phone] Tej Roberts MD Primary Care Provider [phone] Singh Alvarez MD Unavailable Reason for Referral * MRI/CAT Scan - Closed Specialty Diagnoses / Procedures Referred By Contnadeem t Referred To Contact Procedures CT Chest Outside (No Interpretation) System, Provider Not In, PhD [address] [address] Referral ID Status Reason Start Date Expiration Date Visits Re quested Visits Authorized [id number] Closed 03/23/2018 03/23/2019 1 1 Encounter Details Date Type Department Care Team (Late st Contact Info) Description 03/23/2018 Ancillary Orders [facility],Outside Imaging [address] [place], [place] [id number] System, Provider Not In, PhD [facility] [address] [address] Social History Tobacco Use Types Packs/Day Years Used Date Smoking Tobacco: Never Assessed Sex and Gender Information Value Date Recorded Sex Assigned at Male 12/14/2020 8:28 AM EDT Legal Sex Male 10:28 AM EDT Gender Identity Male 12/14/2020 8:28 AM EDT Sexual Orientation Straight 12/14/2020 8: 28 AM EDT documented as of this encounter Plan of Treatment Not on file documented as of this encounter Results * CT Chest Outside (No Interpretation) (03/15/2018 12:15 AM EDT) Narrative SYSTEMGENERATED, DOCUMENTATION - 03/23/2018 1:38 PM EDT This study is for PACS storage only and not for interpretation. us Provider Not In System PhD IMG OUTSIDE IMAGING W /OUT INTERPRETATION Final Result documented in this encounter Visit Diagnoses Not on filedocumented in this encounter Care Teams Leather Cartridge Belt Maker Relationship Specialty Start Date End Date Singh Alvarez MD [address] [place] [address] PCP - General Internal Medicine 03/22/18 05/15/18 Tej Roberts MD [address] [place] [address] PCP - General Internal Medicine 05/16/18 Breanna Watson MD [address] [place] [address] Hematology and Oncology 03/22/18 Lavelle Cabezas MD [address] [place] [address] General Surgery 03/22/18 Singh Alvarez MD [address] [place] [address] Primary Care Physician Internal Medicine 08/03/18 documented as of this encounter Additional Source Comments The information contained in this document represents components of the legal health record. It is not the complete legal health record.[facility]
--- OUTSIDE RECORDS SUMMARY | 2025-08-07 10:54 | XMS_ITS | Encounter Summary ---
Author Organization [facility] Address [address] [place] [address] Phone Care Team Providers Care Calender Machine Operator Helper Name Role Phone Singh Alvarez MD Primary Care Provider + Breanna Watson MD Unavailable Lavelle Cabezas MD Unavailable [phone] Tej Roberts MD Primary Care Provider [phone] Singh Alvarez MD Unavailable Reason for Referral * MRI/CAT Scan - Closed Specialty Diagnoses / Procedures Referred By Contnadeem t Referred To Contact Procedures CT Abdomen/Pelvis Outside (No Interpretation) System, Provider Not In, PhD [facility] [address] [address] Referral ID Status Reason Start Date Expiration Date Visits Re quested Visits Authorized [id number] Closed 03/23/2018 03/23/2019 1 1 Encounter Details Date Type Department Care Team (Late st Contact Info) Description 03/23/2018 Ancillary Orders [facility],Outside Imaging [address] [place], [place] [phone] System, Provider Not In, PhD [facility] [address] [address] Social History Tobacco Use Types Packs/Day Years [...] as of this encounter Results * CT Abdomen/Pelvis Outside (No Interpretation) (03/15/2018 12:00 AM EDT) Narrative SYSTEMGENERATED, DOCUMENTATION - 03/23/2018 1:36 PM EDT This study is for PACS storage only and not for interpretation. us Provider Not In System PhD IMG OUTSIDE IMAGING W /OUT INTERPRETATION Final Result documented in this encounter Visit Diagnoses Not on filedocumented in this encounter Care Teams Calender Machine Operator Helper Relationship Specialty Start Date End Date Singh Alvarez MD [address] [place] [address] PCP - General Internal Medicine 03/22/18 05/15/18 Tej Roberts MD [address] [place] [address] PCP - General Internal Medicine 05/16/18 Breanna Watson MD [address] [place] [address] Hematology and Oncology 03/22/18 Lavelle Cabezas MD [address] [place] [address] General Surgery 03/22/18 Singh Alvarez MD [address] [place] [address] Primary Care Physician Internal Medicine 08/03/18 documented as of this encounter Additional Source Comments The information contained in this document represents components of the legal health record. It is not the complete legal health record.[facility]
--- OUTSIDE RECORDS SUMMARY | 2025-08-07 10:54 | XMS_ITS | Encounter Summary ---
Author Organization [facility] Address [address] [place] [address] Phone Care Team Providers Care Brake Repairer Air Name Role Phone Singh Alvarez MD Primary Care Provider + Breanna Watson MD Unavailable Lavelle Cabezas MD Unavailable [phone] Tej Roberts MD Primary Care Provider [phone] Singh Alvarez MD Unavailable [phone] Encounter Details Date Type Department Care Team (Late st Contact Info) Description 03/23/2018 Procedure Pass [facility],Outside Imaging [address] [place] [address] Social History Tobacco Use Types Packs/Day Years [...] on filedocumented in this encounter Care Teams Brake Repairer Air Relationship Specialty Start Date End Date Singh Alvarez MD [address] [place] [address] PCP - General Internal Medicine 03/22/18 05/15/18 Tej Roberts MD [address] [place] [address] [address] [place] [address] PCP - General Internal Medicine 05/16/18 Breanna Watson MD [address] [place] [address] Hematology and Oncology 03/22/18 Lavelle Cabezas MD [address] [place] [address] [place] [address] General Surgery 03/22/18 Singh Alvarez MD [address] [place] [address] Primary Care Physician Internal Medicine 08/03/18 documented as of this encounter Additional Source Comments The information contained in this document represents components of the legal health record. It is not the complete legal health record.[facility]
--- OUTSIDE RECORDS SUMMARY | 2025-08-07 10:54 | XMS_ITS | Encounter Summary ---
Author Organization [facility] Address [address] [place] [address] Phone Care Team Providers Care Saute Chef Name Role Phone Singh Alvarez MD Primary Care Provider + Breanna Watson MD Unavailable [phone] Lavelle Cabezas MD Unavailable [phone] Tej Roberts MD Primary Care Provider [phone] Singh Alvarez MD Unavailable Encounter Details Date Type Department Care Team (Late st Contact Info) Description 03/23/2018 Procedure Pass [facility],Outside Imaging [address] [place] [address] Social History Tobacco Use Types Packs/Day Years [...] on filedocumented in this encounter Care Teams Saute Chef Relationship Specialty Start Date End Date Singh Alvarez MD [address] [place] [address] PCP - General Internal Medicine 03/22/18 05/15/18 Tej Roberts MD [address] [place] [address] 1 [place] [address] PCP - General Internal Medicine 05/16/18 Breanna Watson MD [address] [place] [address] Hematology and Oncology 03/22/18 Lavelle Cabezas MD [address] [place] [address] [place] [address] General Surgery 03/22/18 Singh Alvarez MD [address] [place] [address] Primary Care Physician Internal Medicine 08/03/18 documented as of this encounter Additional Source Comments The information contained in this document represents components of the legal health record. It is not the complete legal health record.[facility]
--- OUTSIDE RECORDS SUMMARY | 2025-08-07 10:54 | XMS_ITS | Clinical Summary ---
Author Organization [facility] Address [address] [place] [address] Phone Care Team Providers Care Agricultural Education Teacher Name Role Phone Breanna Watson MD Unavailable Lavelle Cabezas MD Unavailable Tej Roberts MD Primary Care Provider [phone] Singh Alvarez MD Unavailable Allergies No known active allergies Medications niacin (SLO-NIACIN) 500 mg tablet Take 500 mg by mouth nightly. Active capecitabine (XELODA) 500 MG tablet Take by mouth 6 (six) times a day. Active silver sulfADIAZINE (SILVADENE) 1 % creamIndications :Anal cancer,Acute radiation dermatitis Apply to affected area 2-3 times daily. Not 4 hours prior to radiation 400 g 1 8 Active Additional Information Patient not taking.Reported on 08/22/2018 lidocaine (XYLOCAINE) 2 % mucosal gel jellyIndications :Anal cancer,Acute radiation dermatitis Apply topically 3 (three) times a day. Apply to effected area 2-3 times daily mixed with the silvadene as directed. 30 mL 1 8 Active Additional Information Patient not taking.Reported on 08/22/2018 loperamide (IMODIUM) 2 mg capsule Take 2 mg by mouth 4 (four) times a day as needed for diarrhea. Active hydrocortisone-p ramoxine (PROCTOFOAM-HC) rectal foamIndications: Anal cancer,Acute radiation proctitis,Tenesm us (rectal) Place 1 applicator rectally 2 (two) times a day. Gently with lubricant 10 g 8 Active Additional Information Patient not taking.Reported on 07/17/2018 hydrocortisone (COLOCORT) 100 mg/60 mL enemaIndications :Acute radiation proctitis Place 1 enema (100 mg total) rectally nightly. 14 enema 1 8 Active Additional Information Patient not taking.Reported on 08/22/2018 mineral oil-hydrophil petrolatum (AQUAPHOR) Oint Apply topically as needed. Active ibuprofen (ADVIL,MOTRIN) 200 MG tablet Take 400 mg by mouth every 6 (six) hours as needed for pain (specific location in comments). Active niacin (SLO-NIACIN) 500 mg tablet Take 500 mg by mouth 2 (two) times a day with meals. Active Active Problems Problem Noted Date Diagnosed Date Anal cancer 05/02/2018 Immunizations Immunization Administration Dates Next Due COVID-19 (Pre-07/24) Pfizer Vaccine, mRNA, PF ,12/19/2020 Family History Medical History Relation Comments Colon cancer Father Colon polyps Father Relation Status Comments Father Social History Tobacco Use Types Packs/Day Years Used Date Smoking Tobacco: Former Cigarettes 0.3 10 Alcohol Use Standard Drinks/Week Comments Yes 0 (1 standard drink = 0.6 oz pur e alcohol) weekends Education Answer Date Recorded Are you interested in more education? Not on leandro e 01/27/2023 Are you concerned about learning? Not on file 01/27/2023 No 01/27/2023 No 01/27/2023 Digital Access Answer Date Recorded No 02/25/2023 No 02/25/2023 No 02/25/2023 Reliable internet access at home? Not on file 02/25/2023 Device with a working camera? Not on file Sex and Gender Information Value Date Recorded Sex Assigned at Male 12/14/2020 8:28 AM EDT Legal Sex Male 10:28 AM EDT Gender Identity Male 12/14/2020 8:28 AM EDT Sexual Orientation Straight 12/14/2020 8: 28 AM EDT Last Filed Vital Signs Vital Sign Reading Time Taken Comments Blood Pressure 163/81 02/07/2019 10:35 AM EDT Pulse 74 02/07/2019 10:35 AM EDT Temperature 35.6 C (96.1 F) 08/22/2018 10:51 AM EST Respiratory Rate 16 04/27/2018 9:15 AM EDT Oxygen Saturation 99% 02/07/2019 10:35 AM EDT Inhaled Oxygen Concentration - - Weight 83.2 kg (183 lb 8 oz) 02/07/2019 10:35 AM EDT Height 175.3 cm (5' 9 ) 06/27/2018 2:00 PM EDT Body Mass Index 27.1 06/27/2018 2:00 PM EDT Plan of Treatment Health Maintenance Due Date Last Done Comments Adult Td,Tdap Booster 1960 LIPID PANEL 1960 DEPRESSION SCREENING 1972 SMOKING Hx and SMOKELESS TOBACCO SCREENING 1973 HEPATITIS C SCREENING 1978 HIV ONE-TIME SCREENING (18-65 YEARS) 1978 COLOGUARD 2005 COLONOSCOPY 2005 COLORECTAL CANCER SCREENING 2005 FIT TEST 2005 FOBT 2005 SIGMOIDOSCOPY 2005 VIRTUAL COLONOSCOPY 2005 PNEUMOCOCCAL VACCINES (50+ years) (2 of 2 - PCV) 03/23/2018 03/23/2017 ZOSTER VACCINES (2 of 2) 08/31/2020 07/06/2020 INFLUENZA VACCINE (#1) 2025 , 08/21/2019, 06/26/2018, Additional history exists COVID-19 VACCINE ( season) 2025 01/09/2021, 12/19/2020 RSV VACCINE (1 - 1-dose 75+ series) 12/05/2035 HEPATITIS A VACCINES Aged Out No long er eligible based on patient's age to complete this topic HIB VACCINES Aged Out No longer eligi ble based on patient's age to complete this topic MENINGOCOCCAL VACCINES (ACWY) Aged Out No longer eligible based on patient's age to complete this topic MENINGOCOCCAL VACCINES (B) Aged Out N o longer eligible based on patient's age to complete this topic Medical Devices Not on [place] [address] [place] [address] [place] [address] [place] [address] [place] [address] [place] [address] [place] [address] [place] [address] Care Teams Agricultural Education Teacher Relationship Specialty Start Date End Date Tej oRberts MD [address] [place] [address] PCP - General Internal Medicine 05/16/18 Breanna Watson MD [address] [place] [address] Hematology and Oncology 03/22/18 Lavelle Cabezas MD [address] [place] [address] General Surgery 03/22/18 Singh Alvarez MD [address] [place] [address] Primary Care Physician Internal Medicine 08/03/18 Additional Source Comments The information contained in this document represents components of the legal health record. It is not the complete legal health record.[facility]
--- OUTSIDE RECORDS SUMMARY | 2025-08-07 10:54 | XMS_ITS | Encounter Summary ---
Author Organization [facility] Address [address] [place] [address] Phone Care Team Providers Care Information Services Manager Name Role Phone Singh Alvarez MD Primary Care Provider + Breanna Watson MD Unavailable Lavelle Cabezas MD Unavailable [phone] Tej Roberts MD Primary Care Provider [phone] Singh Alvarez MD Unavailable [phone] Reason for Referral * MRI/CAT Scan - Closed Specialty Diagnoses / Procedures Referred By Teresa grover Referred To Contact Procedures MRI Abdomen Outside (No Interpretation) System, Provider Not In, PhD [address] [address] Referral ID Status Reason Start Date Expiration Date Visits Re quested Visits Authorized [id number] Closed 05/14/2018 05/14/2019 1 1 Encounter Details Date Type Department Care Team (Late st Contact Info) Description 05/14/2018 Ancillary Orders [facility],Outside Imaging [address] [place], [place] [id number] System, Provider Not In, PhD Partners [address] [address] Social History Tobacco Use Types Packs/Day Years [...] documented as of this encounter Results * MRI Abdomen Outside (No Interpretation) (05/11/2018 12:00 AM EDT) Narrative SYSTEMGENERATED, DOCUMENTATION - 05/14/2018 5:14 PM EDT This study is for PACS storage only and not for interpretation. us Provider Not In System PhD IMG OUTSIDE IMAGING W /OUT INTERPRETATION Final Result documented in this encounter Visit Diagnoses Not on filedocumented in this encounter Care Teams Information Services Manager Relationship Specialty Start Date End Date Singh Alvarez MD [address] [place] [address] PCP - General Internal Medicine 03/22/18 05/15/18 Tej Roberts MD [address] [place] [address] PCP - General Internal Medicine 05/16/18 Breanna Watson MD [address] [place] [address] Hematology and Oncology 03/22/18 Lavelle Cabezas MD [address] [place] [address] Dr WALKER [address] [place] [address] General Surgery 03/22/18 Singh Alvarez MD [address] [place] [address] Primary Care Physician Internal Medicine 08/03/18 documented as of this encounter Additional Source Comments The information contained in this document represents components of the legal health record. It is not the complete legal health record.[facility]
--- OUTSIDE RECORDS SUMMARY | 2025-08-07 10:54 | XMS_ITS | Encounter Summary ---
Author Organization [facility] Address [address] [place] [address] Phone Care Team Providers Care Edger Hand Name Role Phone Singh Alvarez MD Primary Care Provider + Breanna Watson MD Unavailable Lavelle Cabezas MD Unavailable [phone] Tej Roberts MD Primary Care Provider Singh Alvarez MD Unavailable [phone] Reason for Referral * MRI/CAT Scan - Closed Specialty Diagnoses / Procedures Referred By Contac t Referred To Contact Procedures NM PET Whole Body Outside (No Interpretation) System, Provider Not In, PhD Partners [address] [address] Referral ID Status Reason Start Date Expiration Date Visits Re quested Visits Authorized [id number] Closed 03/23/2018 03/23/2019 1 1 Encounter Details Date Type Department Care Team (Late st Contact Info) Description 03/23/2018 Ancillary Orders [facility],Outside Imaging [address] [place], [place] [phone] System, Provider Not In, PhD Partners [address] [address] Social History Tobacco Use Types Packs/Day Years [...] documented as of this encounter Results * NM PET Whole Body Outside (No Interpretation) (03/22/2018 12:00 AM EDT) Narrative SYSTEMGENERATED, DOCUMENTATION - 03/23/2018 1:46 PM EDT This study is for PACS storage only and not for interpretation. us Provider Not In System PhD IMG OUTSIDE IMAGING W /OUT INTERPRETATION Final Result documented in this encounter Visit Diagnoses Not on filedocumented in this encounter Care Teams Edger Hand Relationship Specialty Start Date End Date Singh Alvarez MD [address] [place] [address] PCP - General Internal Medicine 03/22/18 05/15/18 Tej Roberts MD [address] [place] [address] PCP - General Internal Medicine 05/16/18 Breanna Watson MD [address] [place] [address] Hematology and Oncology 03/22/18 Lavelle Cabezas MD [address] [place] [address] General Surgery 03/22/18 Singh Alvarez MD [address] [place] [address] Primary Care Physician Internal Medicine 08/03/18 documented as of this encounter Additional Source Comments The information contained in this document represents components of the legal health record. It is not the complete legal health record.[facility]
--- OUTSIDE RECORDS SUMMARY | 2025-08-07 10:54 | XMS_ITS | Encounter Summary ---
Author Organization [facility] Address [address] [place] [address] Phone Care Team Providers Care Complex Case Manager Name Role Phone Breanna Watson MD Unavailable Lavelle Cabezas MD Unavailable Tej Roberts MD Primary Care Provider [phone] Singh Alvarez MD Unavailable Encounter Details Date Type Department Care Team (Late st Contact Info) Description 05/16/2018 Ancillary Orders [facility] Rad Onc [address] [place] [address] Rose Steele MD [address] [place] [address] [email or web address] Anal cancer Social History Tobacco Use Types Packs/Day Years [...] as of this encounter Plan of Treatment Pending Results Name Type Priority Associated Diagnoses Date /Time CT Radiation Oncology Consult Imaging Routine Anal cancer 05/16/2018 8:59 AM EDT Scheduled Orders Name Type Priority Associated Diagnoses Orde r Schedule CT Radiation Oncology Consult Imaging Routine Anal cancer Expected: 05/04/2018, Expires: 08/04/2019 documented as of this encounter Visit Diagnoses Diagnosis Anal cancer Malignant neoplasm of anus, unspecified site documented in this encounter Care Teams Complex Case Manager Relationship Specialty Start Date End Date Tej Roberts MD [address] [facility] 1 [place] [address] PCP - General Internal Medicine 05/16/18 Breanna Watson MD [address] [place] [address] Hematology and Oncology 03/22/18 Lavelle Cabezas MD [address] [place] [address] [place] [address] General Surgery 03/22/18 Singh Alvarez MD [address] [place] [address] Primary Care Physician Internal Medicine 08/03/18 documented as of this encounter Additional Source Comments The information contained in this document represents components of the legal health record. It is not the complete legal health record.[facility]
--- OUTSIDE RECORDS SUMMARY | 2025-08-07 10:54 | XMS_ITS | Encounter Summary ---
Author Organization [facility] Address [address] [place] [address] Phone Care Team Providers Care Mechanic Senior Name Role Phone Singh Alvarez MD Primary Care Provider + Breanna Watson MD Unavailable [phone] Lavelle Cabezas MD Unavailable [phone] Tej Roberts MD Primary Care Provider [phone] Singh Alvarez MD Unavailable [phone] Encounter Details Date Type Department Care Team (Late st Contact Info) Description 05/14/2018 Procedure Pass [facility],Outside Imaging [address] [place] [address] Social History Tobacco Use Types Packs/Day Years [...] on filedocumented in this encounter Care Teams Mechanic Senior Relationship Specialty Start Date End Date Singh Alvarez MD [address] [place] [address] PCP - General Internal Medicine 03/22/18 05/15/18 Tej Roberts MD [address] [place] [address] 1 [place] [address] PCP - General Internal Medicine 05/16/18 Breanna Watson MD [address] [place] [address] Hematology and Oncology 03/22/18 Lavelle Cabezas MD [address] [place] [address] [place] [address] General Surgery 03/22/18 Singh Alvarez MD [address] [place] [address] Primary Care Physician Internal Medicine 08/03/18 documented as of this encounter Additional Source Comments The information contained in this document represents components of the legal health record. It is not the complete legal health record.[facility]
--- OUTSIDE RECORDS SUMMARY | 2025-08-07 10:54 | XMS_ITS | Encounter Summary ---
Author Organization [facility] Address [address] [place] [address] Phone Care Team Providers Care Paper Box Cutter Name Role Phone Breanna Watson MD Unavailable Lavelle Cabezas MD Unavailable [phone] Tej Roberts MD Primary Care Provider [phone] Singh Alvarez MD Unavailable Encounter Details Date Type Department Care Team (Late st Contact Info) Description 06/18/2018 E-Consult [facility] Rad Onc [address] [place] [address] Rose Steele MD [address] [place] [address] [email or web address] Social History Tobacco Use Types Packs/Day Years [...] on filedocumented in this encounter Care Teams Paper Box Cutter Relationship Specialty Start Date End Date Tej Roberts MD [address] [place] [address] 1 [place] [address] PCP - General Internal Medicine 05/16/18 Breanna Watson MD [address] [place] [address] Hematology and Oncology 03/22/18 Lavelle Cabezas MD [address] [place] [address] General Surgery 03/22/18 Singh Alvarez MD [address] [place] [address] Primary Care Physician Internal Medicine 08/03/18 documented as of this encounter Additional Source Comments The information contained in this document represents components of the legal health record. It is not the complete legal health record.[facility]
== END 2025-08-07 10:05 | disposition home or self-care (01) ==
LOC: HO.HGS 09:40
PROVIDERS: PCP Internal Medicine; Visit Provider Surgery
DX: Z85.048 Personal history of other malignant neoplasm of rectum, rectosigmoid junction, and anus (principal)
CPT/HCPCS: 99212

== ENCOUNTER → 2025-08-07 09:40 | Outpatient (BNVA) | payer OTHER, SELFPAY | PROVIDERS: PCP Internal Medicine; Visit Provider Surgery | DX: Z85.048 Personal history of other malignant neoplasm of rectum, rectosigmoid junction, and anus (principal); Z92.21 Personal history of antineoplastic chemotherapy; Z92.3 Personal history of irradiation; Z80.0 Family history of malignant neoplasm of digestive organs | CPT/HCPCS: 99212 ==